=== PATIENT | female | born 1990 | race American Indian/Alaskan Native ===

== ENCOUNTER 2017-07-14 16:15 | Inpatient (IN) | payer OTHER ==
[2017-07-14] MEDS ORDERED: MAGNESIUM SULFATE 4GM/100ML 4 GM/100 ML BAG IV ONE ×2 (16:39→16:43)
[2017-07-14] MEDS ORDERED: APRESOLINE IV ONE (16:39)
[2017-07-14] MEDS ORDERED: LACTATED RINGERS 1,000 ML ONE (16:42)
[2017-07-14] MEDS ORDERED: MAGNESIUM SULFATE 40GM/1000ML 40 GM/1,000 ML BAG IV ONE (16:43)
[2017-07-14] MEDS: CELESTONE SOLUSPAN IM SCH (16:44)
[2017-07-14] MEDS ORDERED: CELESTONE SOLUSPAN IM ONE (16:44)
[2017-07-14] MEDS ORDERED: COLACE PO PRN (16:56)
[2017-07-14] MEDS ORDERED: MAGNESIUM SULFATE 40GM/1000ML 40 GM/1,000 ML BAG IV SCH (17:00)
[2017-07-14 17:10] LABS: Bacteria,Urine 1+ /HPF (Negative); Mucus,Urine FEW /HPF
[2017-07-14 17:13] LABS: Hematocrit 33.7 % (30.3-42.9); Hemoglobin 11.3 gm/dl (10.1-14.3); Mean Corpuscular HGB Conc 34 % (30-34); Mean Corpuscular Hemoglobin 31 pg (28-32); Mean Corpuscular Volume 92 fl (79-97); Platelet Count 112 K/mm3 (140-440); Red Blood Count 3.68 M/mm3 (3.65-5.03); Red Cell Distribution Width 17.2 % (13.2-15.2); White Blood Count 8.3 K/mm3 (4.5-11.0)
[2017-07-14 17:16] LABS: Bilirubin,Urine NEG (Negative); Blood,Urine SM (Negative); Ketones,Urine NEG (Negative); Leukocyte Esterase,Urine NEG (Negative); Nitrite,Urine NEG (Negative); Urobilinogen,Urine < 2.0 mg/dL (<2.0)
[2017-07-14 17:18] LABS: Protein,Urine >500 mg/dL (Negative)
[2017-07-14 17:23] LABS: Alanine Aminotransferase 96 units/L (7-56); Lactate Dehydrogenase 717 units/L (91-180); Uric Acid 6.2 mg/dL (3.5-7.6)
--- NOTE | 2017-07-14 18:30 | History and Physical Report ---
History of Present Illness Date of examination: 07/14/17 Date of admission: 07/14/17 16:15 Chief complaint: This is a 27 year-old female admitted for evaluation/management of elevated BP and abnormal LFT and decreased platelets. She experienced RUQ pain last pm that became progressively worse overnight. Her BP was 170/120 at home. She immediately went to [facility] for evaluation where she was noted to have elevated BP's and abnormal PIH labs. She was discharged home with instructions to go to [facility] triage or her OB's office immediately for evaluation. While at [facility] she was given Hydralazine and Percocet for her RUQ pain. Due concerns for unsupervised care in a patient with possible HELLP the patient requested transfer by ambulance. I actually spoke with the managing MD at [facility] and voiced my concerns for discharge and offered to accept the patient as a transfer to [facility] however the concerns were not considered and the patient was told by the social studies department chair since was already discharged and the MD felt the patient did not to be transferred she would have to pay for an ambulance to transfer her. At this point the patient voiced her frustration and decided to leave and presented to [facility] for evaluation. History of present illness: Past History : 2 Term Births: 0 Premature Births: 1 Living Children: 1 Para: 1 Mult. Births: 0 Prev : 0 Prev. attempt? 0 Aborta: 0 Elect. Ab: 0 Spont. Ab: 0 Ectopics: 0 # 1 Delivery date: 07/26/2009 Weeks Gestation: 23 Delivery type: Hours of labor: 22 Anesthesia type: IV Delivery location: [place] Infant Sex: Male weight: 1-1 Comments: HELLP induction Past Medical History: Lupus PTE dx 2009 and 2014 ITP Blood Transfusions multiple Migraines Past Surgical History: Bone marrow biopsy Family History Summary: Reviewed history and no changes required: 04/13/2017 Other family member - Has Family History of Coronary Heart Disease - Entered On : 09/17/2015 Other family member - Has No Family History of Breast Cancer - Entered On: 2015 Other family member - Has No Family History of Colon Cancer - Entered On: 2015 Other family member - Has No Family History of Diabetes - Entered On: 09/17/2015 Other family member - Has No Family History of Hypertension - Entered On: 2015 Other family member - Has No Family History of Ovarvian Cancer - Entered On: 09/17 Social History: Reviewed history from 09/17/2015 and no changes required: Patient is single Smoking History: Patient has never smoked. Risk Factors: Smoked Tobacco Use: Never smoker Smokeless Tobacco Use: Never Passive smoke exposure: no Drug use: no Alcohol use: no Dietary Counseling: yes Past Medical History Abnormal PAP: negative Uterine Anomaly: negative Social Hx: Patient is single Smoking History: Patient has never smoked. Genetic History Congenital Heart Defect: Mom: no Dad: no Flor Disease: Mom: no Dad: no Thalassemia Mom: no Dad: no Neural Tube Defect Mom: no Dad: no Down's Syndrome Mom: no Dad: no Rayray-Sachs Mom: no Dad: no Sickle Cell Disease/Trait Mom: no Dad: no Hemophilia Mom: no Dad: no Muscular Dystrophy Mom: no Dad: no Cystic Fibrosis Mom: no Dad: no Greene Chorea Mom: no Dad: no Mental Retardation Mom: no Dad: no Fragile X Mom: no Dad: no Other Genetic/Chromosomal Disorder Mom: no Dad: no Child w/other defect Mom: no Dad: no Enviromental Exposures Xray Exposure: no Medication, drug, or alcohol use since LMP: no Chemical/Other Exposure: no Exposure to Cat Liter: no Hx of Parvovirus (Fifth Disease): no Active Medications (reviewed today): LOVENOX 40 MG/0.4ML SC SOLN (ENOXAPARIN SODIUM) Subcutaneous injections once everyday PREDNISONE () PNV () Current Allergies (reviewed today): * NSAIDS (Critical) Past History - Obstetrical History Expected Date of Delivery: 10/26/17 Actual Gestation: 25 Week(s) 1 Day(s) : 2 Medications and Allergies Allergies Allergy/AdvReac Type Severity Reaction Status Date / Time No Known Allergies Allergy Unverified 07/14/17 16:45 Active Meds: Active Medications Acetaminophen (Tylenol) 650 mg PO Q6H PRN PRN Reason: Pain, Mild (1-3) Betamethasone Acet/Betameth SodPhos (Celestone Soluspan) 12 mg IM Q24HR GREGORY Stop: 07/16/17 10:01 Last Admin: 07/14/17 16:44 Dose: 12 mg Docusate Sodium (Colace) 100 mg PO Q12H PRN PRN Reason: Constipation Heparin Sodium (Porcine) (Heparin) 5,000 unit SUB-Q Q12HR GREGORY Magnesium Sulfate (Magnesium Sulfate 40gm/1000ml) 40 gm in 1,000 mls @ 50 mls/ hr IV DIRECT GREGORY PRN Reason: 2 GM/HR Last Admin: 07/14/17 17:17 Dose: 2 gm/hr, 50 mls/hr Magnesium Sulfate (Magnesium Sulfate 4gm/100ml) 4 gm in 100 mls @ 25 mls/hr IV ONCE ONE Stop: 07/14/17 20:38 Last Admin: 07/14/17 16:57 Dose: 25 mls/hr Lactated Ringer's (Lactated Ringers) 1,000 mls @ 125 mls/hr IV DIRECT GREGORY Magnesium Hydroxide (Milk Of Magnesia) 30 ml PO QHS PRN PRN Reason: Laxative Effect Multivitamins/Iron/Calcium ( Vitamin) 1 each PO QDAY GREGORY Ondansetron HCl (Zofran) 4 mg IV Q6H PRN PRN Reason: Nausea And Vomiting Zolpidem Tartrate (Ambien) 10 mg PO ONCE PRN PRN Reason: Sleep Review of Systems All systems: negative Gastrointestinal: abdominal pain Neurological: headaches - Vital Signs Vital signs: Vital Signs Pulse Pulse Ox 76 99 07/14/17 16:39 07/14/17 16:39 Temp Pulse Resp BP Pulse Ox 90 142/86 98 07/14/17 18:18 07/14/17 18:12 07/14/17 18:18 - Physical Exam Breasts: Positive: deferred Cardiovascular: Regular rate Lungs: Positive: Clear to auscultation Abdomen: Positive: normal appearance, soft, normal bowel sounds. Negative: tenderness Uterus: Positive: enlarged. Negative: tender Extremities: Positive: normal Deep Tendon Reflex Grade: Normal +2 - Obstetrical FHR: category 1 (appropriate for GA) Uterine Contraction Monitor Mode: Internal Uterine Contraction Pattern: Absent Results Result Diagrams: 07/14/17 16:35 07/14/17 16:35 Abnormal lab results 07/14/17 07/14/17 Range/Units 16:35 16:35 RDW 17.2 H (13.2-15.2) % Plt Count 112 L (140-440) K/mm3 Creatinine 0.6 L (0.7-1.2) mg/dL AST 180 H (5-40) units/L ALT 96 H (7-56) units/L Lactate Dehydrogenase 717 H (91-180) units/L All other labs normal. Ultrasound: pending Assessment and Plan - Patient Problems (1) 25 weeks gestation of Current Visit: Yes Status: Acute Plan to address problem: NICU consultation (2) Elevated blood pressure affecting in second trimester, antepartum Current Visit: Yes Status: Acute Plan to address problem: Preeclampsia/HELLP/SLE flare Celestone MagSO4 prophylaxis Strice I/O's MFM consultation AntiHTN to keep BP<160/100 (3) Nonspecific elevation of levels of transaminase and lactic acid dehydrogenase [ldh] Current Visit: Yes Status: Acute (4) Chronic ITP (idiopathic thrombocytopenic purpura) Current Visit: Yes Status: Chronic (5) History of pulmonary embolus (PE) Current Visit: Yes Status: Chronic Plan to address problem: Start Heparin sq prophylaxis (6) Migraine Current Visit: Yes Status: Chronic Qualifiers: Status migrainosus presence: without status migrainosus Intractability: not intractable (7) Lupus (systemic lupus erythematosus) Current Visit: Yes Status: Chronic Qualifiers: Systemic lupus erythematosus type: other Systemic lupus erythematosus organ involvement: glomerular disease Qualified Code(s): M32.14 - Glomerular disease in systemic lupus erythematosus
[2017-07-14] MEDS ORDERED: PERCOCET 5/325 PO ONE (19:11)
[2017-07-14] MEDS: ZOFRAN IV PRN (19:19)
[2017-07-14] MEDS: HEPARIN SUB-Q SCH (19:22)
--- NOTE | 2017-07-14 19:33 | Ultrasound Report ---
FINAL REPORT PROCEDURE: Obstetrical ultrasound. biophysical profile. TECHNIQUE: Real-time transabdominal sonography of the uterus, placenta, amniotic fluid, adnexa, and fetus was performed with image documentation. Measurements were obtained to determine age/size. M-mode Doppler was used to document heartbeat. CPT 15358 HISTORY: Twenty-five weeks, preeclampsia, labor. COMPARISON: No prior studies are available for comparison. FINDINGS: There is a single intrauterine fetus in cephalic presentation. Cardiac activity is documented at 143 beats per minute. The cervix measures 3.4 centimeters in length. There are no obvious congenital anomalies. The amniotic fluid volume appears normal. The amniotic fluid index measures 9.9 centimeters. The placenta is fundal in location. The measured parameters are as follows: Biparietal diameter 5.6 centimeters, head circumference 20.6 centimeters, abdominal circumference 18.5 centimeters, femur length 4.2 centimeters. The calculated menstrual age is 23 weeks 0 days. The estimated date of confinement is 11/10/2017. The estimated weight is 606 grams. Two points each were awarded for breathing, movements, tone and amniotic fluid volume. IMPRESSION: Viable intrauterine with a menstrual age of 23 weeks 0 days. 03/21 biophysical profile.
[2017-07-14] MEDS ORDERED: HEPARIN SUB-Q SCH (22:00)
[2017-07-14] MEDS ORDERED: MILK OF MAGNESIA PO PRN (22:00)
[2017-07-15] MEDS: LACTATED RINGERS 1,000 ML IV SCH (03:30)
[2017-07-15 07:50] LABS: Alanine Aminotransferase 71 units/L (7-56); Lactate Dehydrogenase 486 units/L (91-180)
[2017-07-15] MEDS: TYLENOL PO PRN (08:13)
[2017-07-15] MEDS: HEPARIN SUB-Q SCH ×2 (08:20→22:06)
--- NOTE | 2017-07-15 09:06 | Progress Note ---
Assessment and Plan - Patient Problems (1) 25 weeks gestation of Current Visit: Yes Status: Acute (2) Elevated blood pressure affecting in second trimester, antepartum Current Visit: Yes Status: Acute Plan to address problem: -recommendations as per MFM are as follows: 1. Close maternal and surveillance 2. Currently not on BP meds, BP meds (IV or PO) as needed to keep BP 120/80-160/ 105 3. Continue prophylactic dose heparin 4. Serial labs (daily for now) 5. Needs umbilical artery dopplers for IUGR 6. Magnesium for neuro-protection and for seizure prophylaxis while patient being evaluated; d/c after 24 hours if no plans for delivery 7. Complete steroids 8. Complete 24 hour urine collection 9. Neonatology consultation (3) Nonspecific elevation of levels of transaminase and lactic acid dehydrogenase [ldh] Current Visit: Yes Status: Acute Plan to address problem: closely monitor daily labs (4) Chronic ITP (idiopathic thrombocytopenic purpura) Current Visit: Yes Status: Chronic Plan to address problem: -daily labs -closely monitor (5) History of pulmonary embolus (PE) Current Visit: Yes Status: Chronic Plan to address problem: -cont heparin BID (6) Lupus (systemic lupus erythematosus) Current Visit: Yes Status: Chronic Qualifiers: Systemic lupus erythematosus type: other Systemic lupus erythematosus organ involvement: glomerular disease Qualified Code(s): M32.14 - Glomerular disease in systemic lupus erythematosus Plan to address problem: unclear if sx are result of flare vs severe PE -24hr urine collection in progress (7) Migraine Current Visit: Yes Status: Chronic Qualifiers: Status migrainosus presence: without status migrainosus Intractability: not intractable (8) IUGR (intrauterine growth restriction) Current Visit: Yes Status: Acute Plan to address problem: BPP/ dopplers ordered for today. Subjective - Subjective Date of service: 07/15/17 Principal diagnosis: 25 2/7 2)lupus 3)h/o PE 4)h/o severe Pre E 5)ITP 6)r/o severe preE Interval history: Pt states she has a headache this am but but it is not as bad as yesterday. BP is normal today. BPP and doppler's ordered as pt has IUGR. 24 hr urine in collection at this time. Patient reports: new complaints, movement normal, no loss of fluid, no vaginal bleeding, no contractions Objective - Vital Signs Vital Signs: Vital Signs - 12hr 07/14/17 07/14/17 07/14/17 21:11 21:13 21:17 Temperature Pulse Rate 90 92 H 82 Respiratory Rate Blood Pressure 135/83 Blood Pressure [Left] O2 Sat by Pulse 97 97 Oximetry 07/14/17 07/14/17 07/14/17 21:22 21:26 21:27 Temperature Pulse Rate 81 88 75 Respiratory Rate Blood Pressure 135/85 Blood Pressure [Left] O2 Sat by Pulse 97 98 Oximetry 07/14/17 07/14/17 07/14/17 21:32 21:38 21:41 Temperature Pulse Rate 77 83 93 H Respiratory Rate Blood Pressure 121/67 Blood Pressure [Left] O2 Sat by Pulse 98 98 Oximetry 07/14/17 07/14/17 07/14/17 21:42 21:48 21:53 Temperature Pulse Rate 85 84 94 H Respiratory Rate Blood Pressure Blood Pressure [Left] O2 Sat by Pulse 97 97 98 Oximetry 07/14/17 07/14/17 07/14/17 21:56 21:57 22:00 Temperature 97.0 F L Pulse Rate 96 H 93 H 88 Respiratory 14 Rate Blood Pressure 141/86 Blood Pressure 143/91 [Left] O2 Sat by Pulse 98 97 Oximetry 07/14/17 07/14/17 07/14/17 22:02 22:05 22:07 Temperature Pulse Rate 95 H 87 94 H Respiratory Rate Blood Pressure 143/91 Blood Pressure [Left] O2 Sat by Pulse 97 98 Oximetry 07/14/17 07/14/17 07/14/17 22:11 22:12 22:18 Temperature Pulse Rate 90 91 H 99 H Respiratory Rate Blood Pressure 138/89 Blood Pressure [Left] O2 Sat by Pulse 98 98 Oximetry 07/14/17 07/14/17 07/14/17 22:22 22:26 22:28 Temperature Pulse Rate 86 85 94 H Respiratory Rate Blood Pressure 141/88 Blood Pressure [Left] O2 Sat by Pulse 98 98 Oximetry 07/14/17 07/14/17 07/14/17 22:33 22:37 22:41 Temperature Pulse Rate 91 H 91 H 93 H Respiratory Rate Blood Pressure 130/84 Blood Pressure [Left] O2 Sat by Pulse 97 97 Oximetry 07/14/17 07/14/17 07/14/17 22:42 22:48 22:53 Temperature Pulse Rate 90 87 85 Respiratory Rate Blood Pressure Blood Pressure [Left] O2 Sat by Pulse 98 97 97 Oximetry 07/14/17 07/14/17 07/14/17 22:56 22:58 23:03 Temperature Pulse Rate 83 89 90 Respiratory Rate Blood Pressure 126/79 Blood Pressure [Left] O2 Sat by Pulse 98 97 Oximetry 07/14/17 07/14/17 07/14/17 23:08 23:11 23:13 Temperature Pulse Rate 87 83 83 Respiratory Rate Blood Pressure 127/74 Blood Pressure [Left] O2 Sat by Pulse 98 97 Oximetry 07/14/17 07/14/17 07/14/17 23:18 23:23 23:26 Temperature Pulse Rate 77 87 93 H Respiratory Rate Blood Pressure 126/77 Blood Pressure [Left] O2 Sat by Pulse 96 96 Oximetry 07/14/17 07/14/17 07/14/17 23:28 23:33 23:38 Temperature Pulse Rate 86 84 87 Respiratory Rate Blood Pressure Blood Pressure [Left] O2 Sat by Pulse 97 97 97 Oximetry 07/14/17 07/14/17 07/14/17 23:41 23:43 23:48 Temperature Pulse Rate 82 81 80 Respiratory Rate Blood Pressure 128/79 Blood Pressure [Left] O2 Sat by Pulse 96 97 Oximetry 07/14/17 07/14/17 07/14/17 23:53 23:56 23:58 Temperature Pulse Rate 82 83 84 Respiratory Rate Blood Pressure 125/72 Blood Pressure [Left] O2 Sat by Pulse 96 96 Oximetry 07/15/17 07/15/17 07/15/17 00:03 00:08 00:11 Temperature Pulse Rate 82 85 86 Respiratory Rate Blood Pressure 127/72 Blood Pressure [Left] O2 Sat by Pulse 96 97 Oximetry 07/15/17 07/15/17 07/15/17 00:13 00:17 00:23 Temperature Pulse Rate 83 82 83 Respiratory Rate Blood Pressure Blood Pressure [Left] O2 Sat by Pulse 96 96 96 Oximetry 07/15/17 07/15/17 07/15/17 00:26 00:28 00:33 Temperature Pulse Rate 93 H 81 78 Respiratory Rate Blood Pressure 100/67 Blood Pressure [Left] O2 Sat by Pulse 95 95 Oximetry 07/15/17 07/15/17 07/15/17 00:38 00:41 00:43 Temperature Pulse Rate 79 81 80 Respiratory Rate Blood Pressure 117/70 Blood Pressure [Left] O2 Sat by Pulse 96 94 95 Oximetry 07/15/17 07/15/17 07/15/17 00:48 00:53 00:56 Temperature Pulse Rate 81 78 82 Respiratory Rate Blood Pressure 125/75 Blood Pressure [Left] O2 Sat by Pulse 96 96 94 Oximetry 07/15/17 07/15/17 07/15/17 00:58 01:03 01:08 Temperature Pulse Rate 80 79 81 Respiratory Rate Blood Pressure Blood Pressure [Left] O2 Sat by Pulse 96 96 95 Oximetry 07/15/17 07/15/17 07/15/17 01:12 01:13 01:18 Temperature Pulse Rate 86 81 81 Respiratory Rate Blood Pressure 127/72 Blood Pressure [Left] O2 Sat by Pulse 94 96 96 Oximetry 07/15/17 07/15/17 07/15/17 01:23 01:26 01:28 Temperature Pulse Rate 79 80 79 Respiratory Rate Blood Pressure 110/70 Blood Pressure [Left] O2 Sat by Pulse 96 96 Oximetry 07/15/17 07/15/17 07/15/17 01:33 01:38 01:41 Temperature Pulse Rate 81 88 90 Respiratory Rate Blood Pressure 116/69 Blood Pressure [Left] O2 Sat by Pulse 96 95 Oximetry 07/15/17 07/15/17 07/15/17 01:43 01:48 01:53 Temperature Pulse Rate 85 79 76 Respiratory Rate Blood Pressure Blood Pressure [Left] O2 Sat by Pulse 95 95 96 Oximetry 07/15/17 07/15/17 07/15/17 01:56 01:58 02:00 Temperature 96.7 F L Pulse Rate 76 78 76 Respiratory 12 Rate Blood Pressure 115/68 Blood Pressure 115/68 [Left] O2 Sat by Pulse 95 95 Oximetry 07/15/17 07/15/17 07/15/17 02:03 02:08 02:11 Temperature Pulse Rate 77 77 78 Respiratory Rate Blood Pressure 113/68 Blood Pressure [Left] O2 Sat by Pulse 96 95 Oximetry 07/15/17 07/15/17 07/15/17 02:13 02:18 02:23 Temperature Pulse Rate 78 78 79 Respiratory Rate Blood Pressure Blood Pressure [Left] O2 Sat by Pulse 96 96 97 Oximetry 07/15/17 07/15/17 07/15/17 02:26 02:28 02:33 Temperature Pulse Rate 75 79 77 Respiratory Rate Blood Pressure 121/72 Blood Pressure [Left] O2 Sat by Pulse 96 95 Oximetry 07/15/17 07/15/17 07/15/17 02:38 02:41 02:43 Temperature Pulse Rate 77 87 77 Respiratory Rate Blood Pressure 126/74 Blood Pressure [Left] O2 Sat by Pulse 96 96 Oximetry 07/15/17 07/15/17 07/15/17 02:48 02:53 02:56 Temperature Pulse Rate 77 78 77 Respiratory Rate Blood Pressure 134/80 Blood Pressure [Left] O2 Sat by Pulse 96 96 Oximetry 07/15/17 07/15/17 07/15/17 02:58 03:03 03:08 Temperature Pulse Rate 77 69 71 Respiratory Rate Blood Pressure Blood Pressure [Left] O2 Sat by Pulse 96 100 100 Oximetry 07/15/17 07/15/17 07/15/17 03:11 03:13 03:18 Temperature Pulse Rate 68 69 66 Respiratory Rate Blood Pressure 140/93 Blood Pressure [Left] O2 Sat by Pulse 100 100 Oximetry 07/15/17 07/15/17 07/15/17 03:23 03:26 03:28 Temperature Pulse Rate 66 70 70 Respiratory Rate Blood Pressure 138/93 Blood Pressure [Left] O2 Sat by Pulse 100 100 Oximetry 07/15/17 07/15/17 07/15/17 03:32 03:33 03:38 Temperature Pulse Rate 65 69 65 Respiratory Rate Blood Pressure 133/93 Blood Pressure [Left] O2 Sat by Pulse 100 100 Oximetry 07/15/17 07/15/17 07/15/17 03:41 03:43 03:48 Temperature Pulse Rate 65 63 65 Respiratory Rate Blood Pressure 136/94 Blood Pressure [Left] O2 Sat by Pulse 100 100 Oximetry 07/15/17 07/15/17 07/15/17 03:53 03:56 03:58 Temperature Pulse Rate 67 65 68 Respiratory Rate Blood Pressure 133/89 Blood Pressure [Left] O2 Sat by Pulse 100 100 Oximetry 07/15/17 07/15/17 07/15/17 04:03 04:08 04:11 Temperature Pulse Rate 76 71 78 Respiratory Rate Blood Pressure 140/95 Blood Pressure [Left] O2 Sat by Pulse 100 100 Oximetry 07/15/17 07/15/17 07/15/17 04:13 04:18 04:23 Temperature Pulse Rate 74 70 77 Respiratory Rate Blood Pressure Blood Pressure [Left] O2 Sat by Pulse 100 100 100 Oximetry 07/15/17 07/15/17 07/15/17 04:28 04:33 04:38 Temperature Pulse Rate 79 75 69 Respiratory Rate Blood Pressure Blood Pressure [Left] O2 Sat by Pulse 91 100 100 Oximetry 07/15/17 07/15/17 07/15/17 04:41 04:43 04:48 Temperature Pulse Rate 74 73 73 Respiratory Rate Blood Pressure 136/92 Blood Pressure [Left] O2 Sat by Pulse 100 100 Oximetry 07/15/17 07/15/17 07/15/17 04:53 04:56 04:58 Temperature Pulse Rate 75 71 70 Respiratory Rate Blood Pressure 137/91 Blood Pressure [Left] O2 Sat by Pulse 100 100 Oximetry 07/15/17 07/15/17 07/15/17 05:03 05:08 05:10 Temperature Pulse Rate 66 75 Respiratory Rate Blood Pressure Blood Pressure [Left] O2 Sat by Pulse 100 100 73 L Oximetry 07/15/17 07/15/17 07/15/17 05:11 05:19 05:26 Temperature Pulse Rate 81 73 70 Respiratory Rate Blood Pressure 127/83 133/86 Blood Pressure [Left] O2 Sat by Pulse 40 L Oximetry 07/15/17 07/15/17 07/15/17 05:28 05:35 05:40 Temperature Pulse Rate 70 76 Respiratory Rate Blood Pressure Blood Pressure [Left] O2 Sat by Pulse 88 0 L 100 Oximetry 07/15/17 07/15/17 07/15/17 05:41 05:45 05:50 Temperature Pulse Rate 73 73 68 Respiratory Rate Blood Pressure 131/85 Blood Pressure [Left] O2 Sat by Pulse 100 100 Oximetry 07/15/17 07/15/17 07/15/17 05:55 05:56 06:00 Temperature 97.5 F L Pulse Rate 79 69 78 Respiratory 16 Rate Blood Pressure 129/80 Blood Pressure 129/80 [Left] O2 Sat by Pulse 100 100 Oximetry 07/15/17 07/15/17 07/15/17 06:05 06:10 06:12 Temperature Pulse Rate 79 70 75 Respiratory Rate Blood Pressure 140/87 Blood Pressure [Left] O2 Sat by Pulse 100 100 Oximetry 07/15/17 07/15/17 07/15/17 06:15 06:20 06:31 Temperature Pulse Rate 74 72 76 Respiratory Rate Blood Pressure Blood Pressure [Left] O2 Sat by Pulse 100 100 98 Oximetry 07/15/17 07/15/17 07/15/17 06:36 06:41 06:46 Temperature Pulse Rate 82 74 79 Respiratory Rate Blood Pressure 130/81 Blood Pressure [Left] O2 Sat by Pulse 99 100 100 Oximetry 07/15/17 07/15/17 07/15/17 06:51 06:56 06:57 Temperature Pulse Rate 88 83 77 Respiratory Rate Blood Pressure 131/87 Blood Pressure [Left] O2 Sat by Pulse 100 100 Oximetry 07/15/17 07/15/17 07/15/17 07:01 07:06 07:11 Temperature Pulse Rate 84 77 74 Respiratory Rate Blood Pressure Blood Pressure [Left] O2 Sat by Pulse 100 100 100 Oximetry 07/15/17 07/15/17 07/15/17 07:14 07:16 07:21 Temperature Pulse Rate 84 84 92 H Respiratory Rate Blood Pressure 130/82 Blood Pressure [Left] O2 Sat by Pulse 98 98 Oximetry 07/15/17 07/15/17 07/15/17 07:26 07:31 07:36 Temperature Pulse Rate 97 H 87 85 Respiratory Rate Blood Pressure 128/85 Blood Pressure [Left] O2 Sat by Pulse 98 98 98 Oximetry 07/15/17 07/15/17 07/15/17 07:41 07:46 07:51 Temperature Pulse Rate 86 89 84 Respiratory Rate Blood Pressure 117/63 Blood Pressure [Left] O2 Sat by Pulse 98 98 97 Oximetry 07/15/17 07/15/17 07/15/17 07:56 08:01 08:06 Temperature Pulse Rate 85 78 81 Respiratory Rate Blood Pressure 121/66 Blood Pressure [Left] O2 Sat by Pulse 97 97 97 Oximetry 07/15/17 07/15/17 07/15/17 08:11 08:16 08:21 Temperature Pulse Rate 81 88 89 Respiratory Rate Blood Pressure 114/63 Blood Pressure [Left] O2 Sat by Pulse 97 98 99 Oximetry 07/15/17 07/15/17 07/15/17 08:26 08:27 08:31 Temperature Pulse Rate 91 H 86 90 Respiratory Rate Blood Pressure 120/72 Blood Pressure [Left] O2 Sat by Pulse 98 99 Oximetry 07/15/17 07/15/17 07/15/17 08:36 08:41 08:46 Temperature Pulse Rate 91 H 78 86 Respiratory Rate Blood Pressure Blood Pressure [Left] O2 Sat by Pulse 98 98 97 Oximetry 07/15/17 07/15/17 07/15/17 08:51 08:56 08:57 Temperature Pulse Rate 77 78 76 Respiratory Rate Blood Pressure 112/64 Blood Pressure [Left] O2 Sat by Pulse 97 97 Oximetry 07/15/17 07/15/17 09:01 09:06 Temperature Pulse Rate 82 78 Respiratory Rate Blood Pressure Blood Pressure [Left] O2 Sat by Pulse 99 96 Oximetry - Exam Cardiovascular: Normal S1, Normal S2 Lungs: Clear to auscultation, Normal air movement Abdomen: Present: normal appearance, soft. Absent: distention, tenderness, guarding FHR: other (low base line) - Labs Labs: Abnormal Labs 07/14/17 07/14/17 07/15/17 16:35 16:35 07:01 RDW 17.2 H Plt Count 112 L Creatinine 0.6 L Magnesium 8.20 H AST 180 H ALT 96 H Lactate Dehydrogenase 717 H 07/15/17 07:16 RDW Plt Count Creatinine Magnesium AST 88 H ALT 71 H Lactate Dehydrogenase 486 H Laboratory Results - last 24 hr 07/14/17 07/14/17 07/14/17 16:35 16:35 16:35 WBC 8.3 RBC 3.68 Hgb 11.3 Hct 33.7 MCV 92 MCH 31 MCHC 34 RDW 17.2 H Plt Count 112 L Creatinine 0.6 L Estimated GFR > 60 Uric Acid 6.2 Magnesium AST 180 H ALT 96 H Lactate Dehydrogenase 717 H Urine Color Yellow Urine Turbidity Clear Urine pH 6.0 Ur Specific [place] 1.019 Urine Protein >500 Urine Glucose (UA) Neg Urine Ketones Neg Urine Blood Sm Urine Nitrite Neg Ur Reducing Substances Not Reportable Urine Bilirubin Neg Urine Ictotest Not Reportable Urine Urobilinogen < 2.0 Ur Leukocyte Esterase Neg Urine WBC (Auto) 6.0 Urine RBC (Auto) 2.0 U Epithel Cells (Auto) 4.0 Urine Bacteria (Auto) 1+ Hyaline Casts 8 Urine Mucus Few 07/15/17 07/15/17 07/15/17 07:01 07:16 07:16 WBC RBC Hgb Hct MCV MCH MCHC RDW Plt Count Creatinine 0.7 Estimated GFR > 60 Uric Acid 6.8 Magnesium 8.20 H AST 88 H ALT 71 H Lactate Dehydrogenase 486 H Urine Color Urine Turbidity Urine pH Ur Specific [place] Urine Protein Urine Glucose (UA) Urine Ketones Urine Blood Urine Nitrite Ur Reducing Substances Urine Bilirubin Urine Ictotest Urine Urobilinogen Ur Leukocyte Esterase Urine WBC (Auto) Urine RBC (Auto) U Epithel Cells (Auto) Urine Bacteria (Auto) Hyaline Casts Urine Mucus
--- NOTE | 2017-07-15 09:11 | Consultation ---
History of Present Illness Consult date: 07/15/17 Past History - Obstetrical History : 2 Medications and Allergies Allergies Allergy/AdvReac Type Severity Reaction Status Date / Time No Known Allergies Allergy Unverified 07/14/17 16:45 Active Meds: Active Medications Acetaminophen (Tylenol) 650 mg PO Q6H PRN PRN Reason: Pain, Mild (1-3) Last Admin: 07/15/17 08:13 Dose: 650 mg Betamethasone Acet/Betameth SodPhos (Celestone Soluspan) 12 mg IM Q24HR GREGORY Stop: 07/16/17 10:01 Last Admin: 07/14/17 16:44 Dose: 12 mg Docusate Sodium (Colace) 100 mg PO Q12H PRN PRN Reason: Constipation Heparin Sodium (Porcine) (Heparin) 5,000 unit SUB-Q Q12HR GREGORY Last Admin: 07/15/17 08:20 Dose: 5,000 unit Magnesium Sulfate (Magnesium Sulfate 40gm/1000ml) 40 gm in 1,000 mls @ 50 mls/ hr IV DIRECT GREGORY PRN Reason: 2 GM/HR Last Admin: 07/14/17 17:17 Dose: 2 gm/hr, 50 mls/hr Lactated Ringer's (Lactated Ringers) 1,000 mls @ 125 mls/hr IV DIRECT GREGORY Last Admin: 07/15/17 03:30 Dose: 75 mls/hr Magnesium Hydroxide (Milk Of Magnesia) 30 ml PO QHS PRN PRN Reason: Laxative Effect Multivitamins/Iron/Calcium ( Vitamin) 1 each PO QDAY [facility] Ondansetron HCl (Zofran) 4 mg IV Q6H PRN PRN Reason: Nausea And Vomiting Last Admin: 07/14/17 19:19 Dose: 4 mg Zolpidem Tartrate (Ambien) 10 mg PO ONCE PRN PRN Reason: Sleep - Vital Signs Vital signs: Vital Signs Pulse Pulse Ox 76 99 07/14/17 16:39 07/14/17 16:39 Temp Pulse Resp BP Pulse Ox 97.5 F L 77 16 112/64 97 07/15/17 05:55 07/15/17 09:11 07/15/17 05:55 07/15/17 08:57 07/15/17 09:11 Results Result Diagrams: 07/14/17 16:35 07/15/17 07:16 Abnormal lab results 07/14/17 07/14/17 07/15/17 Range/Units 16:35 16:35 07:01 RDW 17.2 H (13.2-15.2) % Plt Count 112 L (140-440) K/mm3 Creatinine 0.6 L (0.7-1.2) mg/dL Magnesium 8.20 H (1.7-2.3) mg/dL AST 180 H (5-40) units/L ALT 96 H (7-56) units/L Lactate Dehydrogenase 717 H (91-180) units/L 07/15/17 Range/Units 07:16 RDW (13.2-15.2) % Plt Count (140-440) K/mm3 Creatinine (0.7-1.2) mg/dL Magnesium (1.7-2.3) mg/dL AST 88 H (5-40) units/L ALT 71 H (7-56) units/L Lactate Dehydrogenase 486 H (91-180) units/L All other labs normal. Assessment and Plan Full consult in paper chart Assessment 1. 25+2 weeks 2. Suspected severe pre-eclampsia (elevated BP, proteinuria, low platelets), but diagnosis very difficult due to hx of SLE and ITP, with baseline proteinuria , baseline elevated LFTs, difficult to differentiate from lupus flare 3. SLE 4. ITP 5. IUGR (EFW at 2nd percentile) 6. Hx of PE Recommendations 1. Close maternal and surveillance 2. Currently not on BP meds, BP meds (IV or PO) as needed to keep BP 120/80-160/ 105 3. Continue prophylactic dose heparin 4. Serial labs (daily for now) 5. Needs umbilical artery dopplers for IUGR 6. Magnesium for neuro-protection and for seizure prophylaxis while patient being evaluated; d/c after 24 hours if no plans for delivery 7. Complete steroids 8. Complete 24 hour urine collection 9. Neonatology consultation
--- NOTE | 2017-07-15 10:12 | Event Note ---
Date: 07/15/17 Pt magnesium noted to be 8.2. Will repeat at this time and hold the magnesium for now until the level is repeated.
[2017-07-15 11:14] LABS: Hematocrit 33.9 % (30.3-42.9); Hemoglobin 11.5 gm/dl (10.1-14.3); Mean Corpuscular HGB Conc 34 % (30-34); Mean Corpuscular Hemoglobin 32 pg (28-32); Mean Corpuscular Volume 93 fl (79-97); Platelet Count 128 K/mm3 (140-440); Red Blood Count 3.66 M/mm3 (3.65-5.03); Red Cell Distribution Width 17.5 % (13.2-15.2)
--- NOTE | 2017-07-15 12:01 | Ultrasound Report ---
ULTRASOUND BIOPHYSICAL PROFILE: History: Maternal hypertension, lupus Technique: Transabdominal ultrasound with Doppler interrogation. 2 - breathing movements 2 - movements 2 - posture and tone 2 - Qualitative amniotic fluid volume 8 - TOTAL SCORE OF POSSIBLE 8 Heart Rate (bpm) 125
--- NOTE | 2017-07-15 12:02 | Ultrasound Report ---
ULTRASOUND OB LIMITED History: Maternal hypertension, lupus Technique: Transabdominal ultrasound with Doppler interrogation. Gestation: Single Position: Cephalic Amniotic Fluid: Normal KASIE = 14.6 cm Placenta: Posterior Placental Grade: 0 Heart Rate: 121 BPM Cervical length: 3.0 cm (Normal > 3 cm)
--- NOTE | 2017-07-15 12:04 | Ultrasound Report ---
ULTRASOUND OB VELOCIMETRY UMBILICAL ARTERY History: Maternal hypertension, Lupus. Findings: Transabdominal ultrasound with spectral Doppler interrogation was performed on 6 segments of the umbilical cord. heart rate measures 123 beats per minute. The spectral waveforms are intermittently abnormal. 3 of the segments of the umbilical cord demonstrate loss of end-diastolic flow on the spectral waveforms. S./D. ratio average measures 4.14. Resistive index average measures 0.75. The pulsatility index average measures 2.0.
--- NOTE | 2017-07-15 17:02 | Event Note ---
Date: 07/15/17 last magnesium was 7.8 so will continue to hold at this time.BPs are stable.
--- NOTE | 2017-07-15 17:45 | Consultation ---
History of Present Illness Consult date: 07/15/17 Reason for consult: prematurity (25 weeks gestation at risk for delivery ) Documentation - information: Height 5 ft 3 in Medications and Allergies Allergies Allergy/AdvReac Type Severity Reaction Status Date / Time No Known Allergies Allergy Unverified 07/14/17 16:45 Active Meds: Active Medications Acetaminophen (Tylenol) 650 mg PO Q6H PRN PRN Reason: Pain, Mild (1-3) Last Admin: 07/15/17 08:13 Dose: 650 mg Betamethasone Acet/Betameth SodPhos (Celestone Soluspan) 12 mg IM Q24HR GREGORY Stop: 07/16/17 10:01 Last Admin: 07/14/17 16:44 Dose: 12 mg Docusate Sodium (Colace) 100 mg PO Q12H PRN PRN Reason: Constipation Heparin Sodium (Porcine) (Heparin) 5,000 unit SUB-Q Q12HR GREGORY Last Admin: 07/15/17 08:20 Dose: 5,000 unit Magnesium Sulfate (Magnesium Sulfate 40gm/1000ml) 40 gm in 1,000 mls @ 50 mls/ hr IV DIRECT GREGORY PRN Reason: 2 GM/HR Last Infusion: 07/15/17 10:10 Dose: 0 gm/hr, 0 mls/hr Lactated Ringer's (Lactated Ringers) 1,000 mls @ 125 mls/hr IV DIRECT GREGORY Last Admin: 07/15/17 03:30 Dose: 75 mls/hr Magnesium Hydroxide (Milk Of Magnesia) 30 ml PO QHS PRN PRN Reason: Laxative Effect Multivitamins/Iron/Calcium ( Vitamin) 1 each PO QDAY [facility] Ondansetron HCl (Zofran) 4 mg IV Q6H PRN PRN Reason: Nausea And Vomiting Last Admin: 07/14/17 19:19 Dose: 4 mg Zolpidem Tartrate (Ambien) 10 mg PO ONCE PRN PRN Reason: Sleep Exam Vital Signs Pulse Pulse Ox 76 99 07/14/17 16:39 07/14/17 16:39 Temp Pulse Resp BP Pulse Ox 97.5 F L 98 H 16 139/89 98 07/15/17 05:55 07/15/17 17:36 07/15/17 05:55 07/15/17 17:27 07/15/17 17:36 Results - Laboratory Findings 07/15/17 10:59 07/15/17 07:16 Abnormal lab results 07/15/17 07/15/17 07/15/17 Range/Units 07:01 07:16 10:59 RDW (13.2-15.2) % Plt Count (140-440) K/mm3 Magnesium 8.20 H 7.80 H (1.7-2.3) mg/dL AST 88 H (5-40) units/L ALT 71 H (7-56) units/L Lactate Dehydrogenase 486 H (91-180) units/L 07/15/17 Range/Units 10:59 RDW 17.5 H (13.2-15.2) % Plt Count 128 L (140-440) K/mm3 Magnesium (1.7-2.3) mg/dL AST (5-40) units/L ALT (7-56) units/L Lactate Dehydrogenase (91-180) units/L Assessment and Plan I met with both parents and spoke with the OB team requesting the consult. Mother has had a prior delivery at 23 weeks in [place] and is familiar with the NICU environment. At 25 weeks gestation and 600g, survival is approximately 75% and survival without significant co-morbidities is approx 50 - 55%. Parents understood the need for NICU admission, possible need for intubation and mechanical ventilation, need for UVC, UAC and PICC lines, as well as the risks for IVH, ROP & BPD. I encouraged parents to ask questions which I answered to the best of my ability. NICU will attend delivery whenever primary team decides to proceed with delivery Agree with steroids for lung maturity Please call NICU with questions
[2017-07-15] MEDS: CELESTONE SOLUSPAN IM SCH (18:02)
[2017-07-16] MEDS: LACTATED RINGERS 1,000 ML IV SCH ×2 (01:47→11:07)
[2017-07-16 06:42] LABS: Alanine Aminotransferase 48 units/L (7-56); Hematocrit 30.5 % (30.3-42.9); Hemoglobin 10.3 gm/dl (10.1-14.3); Lactate Dehydrogenase 481 units/L (91-180); Mean Corpuscular HGB Conc 34 % (30-34); Mean Corpuscular Hemoglobin 31 pg (28-32); Mean Corpuscular Volume 92 fl (79-97); Platelet Count 151 K/mm3 (140-440); White Blood Count 9.1 K/mm3 (4.5-11.0)
[2017-07-16] MEDS ORDERED: APRESOLINE IV NR (08:04)
[2017-07-16] MEDS: TYLENOL PO PRN ×2 (08:39→16:16)
--- NOTE | 2017-07-16 09:17 | Progress Note ---
Assessment and Plan - Patient Problems (1) 25 weeks gestation of Current Visit: Yes Status: Acute (2) Elevated blood pressure affecting in second trimester, antepartum Current Visit: Yes Status: Acute Plan to address problem: -recommendations as per MFM are as follows: 1. Close maternal and surveillance 2. Currently not on BP meds, BP meds (IV or PO) as needed to keep BP 120/80-160/ 105-hydralazine x1 given this am 3. Continue prophylactic dose heparin 4. Serial labs (daily for now) 5. Needs umbilical artery dopplers for IUGR 6. Magnesium for neuro-protection and for seizure prophylaxis while patient being evaluated; d/c after 24 hours if no plans for delivery-d/c at this time 7. steroids completed 8. 24hr urine shows >1000mg/24hrs 9. Neonatology consultation-done (3) Nonspecific elevation of levels of transaminase and lactic acid dehydrogenase [ldh] Current Visit: Yes Status: Acute (4) Chronic ITP (idiopathic thrombocytopenic purpura) Current Visit: Yes Status: Chronic (5) History of pulmonary embolus (PE) Current Visit: Yes Status: Chronic (6) Lupus (systemic lupus erythematosus) Current Visit: Yes Status: Chronic Qualifiers: Systemic lupus erythematosus type: other Systemic lupus erythematosus organ involvement: glomerular disease Qualified Code(s): M32.14 - Glomerular disease in systemic lupus erythematosus (7) Migraine Current Visit: Yes Status: Chronic Qualifiers: Status migrainosus presence: without status migrainosus Intractability: not intractable (8) IUGR (intrauterine growth restriction) Current Visit: Yes Status: Acute Subjective - Subjective Date of service: 07/16/17 Principal diagnosis: 25 3/7 2)lupus 3)h/o PE 4)h/o severe Pre E 5)ITP 6)r/o severe preE Interval history: Pt has been stable with normal bps since d/c of magnesium due to elevated levels until this am at change of shift. She needed to have one dose of hydralazine 10mg with decrease in BP. Pt has not sx and states she is feeling better. No pain , no headaches at this time. Pt LFTs are in normal ranges this am as well as normal platelets. BPP was 8/8 and dopplers showed AEDF that was intermittent. Pt s/p second dose of steroids @ 1800pm. Patient reports: new complaints, movement normal, no loss of fluid, no vaginal bleeding, no contractions Objective - Vital Signs Vital Signs: Vital Signs - 12hr 07/16/17 07/16/17 07/16/17 00:06 00:09 05:40 Temperature 98.7 F 97.8 F Pulse Rate 77 77 82 Respiratory 12 14 Rate Blood Pressure 122/77 Blood Pressure 127/77 134/93 [Left] 07/16/17 07/16/17 07/16/17 05:43 07:50 07:52 Temperature Pulse Rate 82 70 70 Respiratory Rate Blood Pressure 134/93 172/113 168/107 Blood Pressure [Left] 07/16/17 07/16/17 07/16/17 07:53 07:59 08:15 Temperature 97.6 F Pulse Rate 71 71 Respiratory 18 Rate Blood Pressure 165/111 165/111 Blood Pressure [Left] 07/16/17 07/16/17 07/16/17 08:26 08:42 08:57 Temperature Pulse Rate 74 80 92 H Respiratory Rate Blood Pressure 160/105 138/94 144/95 Blood Pressure [Left] - Exam Cardiovascular: Normal S1, Normal S2 Lungs: Clear to auscultation, Normal air movement Abdomen: Present: normal appearance, soft. Absent: distention, tenderness, guarding FHR: category 1 Uterine Contraction Pattern: Absent - Labs Labs: Abnormal Labs 07/14/17 07/14/17 07/15/17 16:35 16:35 07:01 RBC RDW 17.2 H Plt Count 112 L Creatinine 0.6 L Magnesium 8.20 H AST 180 H ALT 96 H Lactate Dehydrogenase 717 H Urine Creatinine Ur Total Protein 24 Hr Urine Total Protein 07/15/17 07/15/17 07/15/17 07:16 10:59 10:59 RBC RDW 17.5 H Plt Count 128 L Creatinine Magnesium 7.80 H AST 88 H ALT 71 H Lactate Dehydrogenase 486 H Urine Creatinine Ur Total Protein 24 Hr Urine Total Protein 07/15/17 07/15/17 07/15/17 18:00 18:00 18:56 RBC RDW Plt Count Creatinine Magnesium 4.80 H AST ALT Lactate Dehydrogenase Urine Creatinine 100.2 H Ur Total Protein 24 Hr 1551.00 H Urine Total Protein 141 H 07/16/17 07/16/17 06:05 06:05 RBC 3.30 L RDW 17.0 H Plt Count Creatinine Magnesium AST 50 H ALT Lactate Dehydrogenase 481 H Urine Creatinine Ur Total Protein 24 Hr Urine Total Protein Laboratory Results - last 24 hr 07/15/17 07/15/17 07/15/17 10:59 10:59 18:00 WBC 8.0 RBC 3.66 Hgb 11.5 Hct 33.9 MCV 93 MCH 32 MCHC 34 RDW 17.5 H Plt Count 128 L Creatinine Estimated GFR Magnesium 7.80 H AST ALT Lactate Dehydrogenase Urine Total Volume 1100 Urine Creatinine Height (in) Weight (lb) Creatinine Clearance Ur Total Protein 24 Hr 1551.00 H Urine Total Protein 141 H 07/15/17 07/15/17 07/16/17 18:00 18:56 06:05 WBC 9.1 RBC 3.30 L Hgb 10.3 Hct 30.5 MCV 92 MCH 31 MCHC 34 RDW 17.0 H Plt Count 151 Creatinine Estimated GFR Magnesium 4.80 H AST ALT Lactate Dehydrogenase Urine Total Volume 1100 Urine Creatinine 100.2 H Height (in) 63.0 Weight (lb) 160.0 Creatinine Clearance 107 Ur Total Protein 24 Hr Urine Total Protein 07/16/17 06:05 WBC RBC Hgb Hct MCV MCH MCHC RDW Plt Count Creatinine 0.8 Estimated GFR > 60 Magnesium AST 50 H ALT 48 Lactate Dehydrogenase 481 H Urine Total Volume Urine Creatinine Height (in) Weight (lb) Creatinine Clearance Ur Total Protein 24 Hr Urine Total Protein
[2017-07-16] MEDS: PRENATAL VITAMIN PO SCH (10:44)
[2017-07-16] MEDS: HEPARIN SUB-Q SCH ×2 (10:45→22:44)
[2017-07-17] MEDS ORDERED: APRESOLINE ONE (00:34)
[2017-07-17] MEDS: AMBIEN PO PRN ×2 (00:52→23:20)
[2017-07-17] MEDS ORDERED: APRESOLINE IV PRN (00:55)
[2017-07-17] MEDS ORDERED: APRESOLINE IV ONE (00:55)
--- NOTE | 2017-07-17 06:39 | Progress Note ---
Assessment and Plan - Patient Problems (1) History of pulmonary embolus (PE) Onset Date: ~07/17/17 Current Visit: Yes Status: Chronic Plan to address problem: Heparin 5,000 QD (2) 25 weeks gestation of Onset Date: ~07/17/17 Current Visit: Yes Status: Acute Plan to address problem: BMZ completed(07-15-17- @ 1800) NICU consult done Pt denies any ctx, LOF, nor bleeding Reports +FM (3) Elevated blood pressure affecting in second trimester, antepartum Onset Date: ~07/17/17 Current Visit: Yes Status: Acute Plan to address problem: Pt did receive a single dose of Hydralizine last evening @ 0100 BP are now 130/ 70-90 No po meds @ this time Pt denies MACKENZIE, blurred vision, chest pain. Pt does c/o feeling week. (4) Chronic ITP (idiopathic thrombocytopenic purpura) Onset Date: ~07/17/17 Current Visit: Yes Status: Chronic Plan to address problem: CBC and CMP drawn this AM as ordered Will consult with . Pt is also being seen by [facility]. Subjective - Subjective Date of service: 07/17/17 (pt voices feeling week but feeling better this AM) Principal diagnosis: 25 3/7 2)lupus 3)h/o PE 4)h/o severe Pre E 5)ITP 6)r/o severe preE Patient reports: new complaints, movement normal, no loss of fluid, no vaginal bleeding, no contractions Objective - Vital Signs Vital Signs: Vital Signs - 12hr 07/16/17 07/16/17 07/16/17 19:00 19:20 20:03 Temperature 98.6 F Pulse Rate 70 70 74 Respiratory 16 Rate Blood Pressure 163/99 153/92 Blood Pressure 163/99 [Left] O2 Sat by Pulse 98 Oximetry 07/16/17 07/16/17 07/16/17 20:08 20:13 20:18 Temperature Pulse Rate 71 90 74 Respiratory Rate Blood Pressure Blood Pressure [Left] O2 Sat by Pulse 99 99 99 Oximetry 07/16/17 07/16/17 07/16/17 20:23 20:28 20:33 Temperature Pulse Rate 66 70 69 Respiratory Rate Blood Pressure Blood Pressure [Left] O2 Sat by Pulse 99 99 100 Oximetry 07/16/17 07/16/1717 20:38 20:43 20:48 Temperature Pulse Rate 81 77 73 Respiratory Rate Blood Pressure Blood Pressure [Left] O2 Sat by Pulse 100 100 99 Oximetry 07/16/17 07/16/17 07/16/17 20:53 20:58 21:03 Temperature Pulse Rate 75 75 76 Respiratory Rate Blood Pressure Blood Pressure [Left] O2 Sat by Pulse 100 100 100 Oximetry 07/16/17 07/16/17 07/16/17 21:08 21:13 21:18 Temperature Pulse Rate 78 74 76 Respiratory Rate Blood Pressure Blood Pressure [Left] O2 Sat by Pulse 100 99 99 Oximetry 07/16/17 07/16/17 07/16/17 21:23 21:28 21:33 Temperature Pulse Rate 75 77 74 Respiratory Rate Blood Pressure Blood Pressure [Left] O2 Sat by Pulse 99 100 100 Oximetry 07/16/17 07/16/17 07/16/17 21:38 21:43 21:48 Temperature Pulse Rate 85 99 H 82 Respiratory Rate Blood Pressure Blood Pressure [Left] O2 Sat by Pulse 100 100 99 Oximetry 07/16/17 07/16/17 07/16/17 21:53 21:58 22:03 Temperature Pulse Rate 73 70 69 Respiratory Rate Blood Pressure Blood Pressure [Left] O2 Sat by Pulse 100 100 100 Oximetry 07/16/17 07/16/17 07/16/17 22:08 22:13 22:18 Temperature Pulse Rate 71 71 71 Respiratory Rate Blood Pressure Blood Pressure [Left] O2 Sat by Pulse 99 100 99 Oximetry 07/16/17 07/16/17 07/16/17 22:23 22:28 22:33 Temperature Pulse Rate 70 78 81 Respiratory Rate Blood Pressure Blood Pressure [Left] O2 Sat by Pulse 100 100 98 Oximetry 07/16/17 07/16/17 07/16/17 22:38 22:43 22:48 Temperature Pulse Rate 73 88 86 Respiratory Rate Blood Pressure Blood Pressure [Left] O2 Sat by Pulse 100 99 99 Oximetry 07/16/17 07/16/17 07/16/17 22:52 22:59 23:04 Temperature Pulse Rate 72 72 75 Respiratory Rate Blood Pressure 166/105 Blood Pressure [Left] O2 Sat by Pulse 99 98 Oximetry 07/16/17 07/16/17 07/16/17 23:09 23:14 23:19 Temperature Pulse Rate 74 71 90 Respiratory Rate Blood Pressure Blood Pressure [Left] O2 Sat by Pulse 100 100 100 Oximetry 07/16/17 07/16/17 07/16/17 23:23 23:24 23:29 Temperature Pulse Rate 68 68 69 Respiratory Rate Blood Pressure 175/99 Blood Pressure [Left] O2 Sat by Pulse 99 100 Oximetry 07/16/17 07/16/17 07/16/17 23:34 23:39 23:44 Temperature Pulse Rate 70 71 72 Respiratory Rate Blood Pressure Blood Pressure [Left] O2 Sat by Pulse 100 100 100 Oximetry 07/16/17 07/16/17 07/16/17 23:49 23:54 23:55 Temperature Pulse Rate 67 71 75 Respiratory Rate Blood Pressure 166/102 Blood Pressure [Left] O2 Sat by Pulse 100 99 Oximetry 07/16/17 07/17/17 07/17/17 23:59 00:04 00:09 Temperature Pulse Rate 69 70 68 Respiratory Rate Blood Pressure Blood Pressure [Left] O2 Sat by Pulse 100 99 100 Oximetry 07/17/17 07/17/17 07/17/17 00:14 00:19 00:23 Temperature Pulse Rate 68 76 68 Respiratory Rate Blood Pressure 169/104 Blood Pressure [Left] O2 Sat by Pulse 100 98 Oximetry 07/17/17 07/17/17 07/17/17 00:24 00:29 00:34 Temperature Pulse Rate 107 H 84 82 Respiratory Rate Blood Pressure Blood Pressure [Left] O2 Sat by Pulse 100 99 100 Oximetry 07/17/17 07/17/17 07/17/17 00:35 00:39 00:44 Temperature Pulse Rate 70 71 94 H Respiratory Rate Blood Pressure 169/104 Blood Pressure [Left] O2 Sat by Pulse 98 98 Oximetry 07/17/17 07/17/17 07/17/17 00:53 01:04 01:09 Temperature Pulse Rate 89 105 H 102 H Respiratory Rate Blood Pressure 139/88 Blood Pressure [Left] O2 Sat by Pulse 99 99 Oximetry 07/17/17 07/17/17 07/17/17 01:14 01:19 01:23 Temperature Pulse Rate 110 H 97 H 95 H Respiratory Rate Blood Pressure 134/83 Blood Pressure [Left] O2 Sat by Pulse 99 99 Oximetry 07/17/17 07/17/17 07/17/17 01:24 01:29 01:34 Temperature Pulse Rate 100 H 100 H 109 H Respiratory Rate Blood Pressure Blood Pressure [Left] O2 Sat by Pulse 99 99 99 Oximetry 07/17/17 07/17/17 07/17/17 01:39 01:44 01:49 Temperature Pulse Rate 116 H 111 H 99 H Respiratory Rate Blood Pressure Blood Pressure [Left] O2 Sat by Pulse 99 99 99 Oximetry 07/17/17 07/17/17 07/17/17 01:53 01:54 01:59 Temperature Pulse Rate 90 93 H 93 H Respiratory Rate Blood Pressure 132/87 Blood Pressure [Left] O2 Sat by Pulse 98 98 Oximetry 07/17/17 07/17/17 07/17/17 02:00 02:04 02:09 Temperature 98.1 F Pulse Rate 90 92 H Respiratory Rate Blood Pressure Blood Pressure [Left] O2 Sat by Pulse 98 98 Oximetry 07/17/17 07/17/17 07/17/17 02:14 02:19 02:23 Temperature Pulse Rate 95 H 95 H 85 Respiratory Rate Blood Pressure 129/71 Blood Pressure [Left] O2 Sat by Pulse 98 98 Oximetry 07/17/17 07/17/17 07/17/17 02:24 02:29 02:34 Temperature Pulse Rate 95 H 97 H 96 H Respiratory Rate Blood Pressure Blood Pressure [Left] O2 Sat by Pulse 98 98 98 Oximetry 07/17/17 07/17/17 07/17/17 02:39 02:44 02:49 Temperature Pulse Rate 97 H 98 H 82 Respiratory Rate Blood Pressure Blood Pressure [Left] O2 Sat by Pulse 98 98 97 Oximetry 07/17/17 07/17/17 07/17/17 02:53 02:55 02:59 Temperature Pulse Rate 108 H 102 H 102 H Respiratory Rate Blood Pressure 129/80 Blood Pressure [Left] O2 Sat by Pulse 98 98 Oximetry 07/17/17 07/17/17 07/17/17 03:05 03:10 03:15 Temperature Pulse Rate 101 H 99 H 101 H Respiratory Rate Blood Pressure Blood Pressure [Left] O2 Sat by Pulse 98 98 98 Oximetry 07/17/17 07/17/17 07/17/17 03:20 03:23 03:25 Temperature Pulse Rate 102 H 91 H 97 H Respiratory Rate Blood Pressure 127/76 Blood Pressure [Left] O2 Sat by Pulse 98 98 Oximetry 07/17/17 07/17/17 07/17/17 03:30 03:34 03:40 Temperature Pulse Rate 100 H 99 H 101 H Respiratory Rate Blood Pressure Blood Pressure [Left] O2 Sat by Pulse 99 98 99 Oximetry 07/17/17 07/17/17 07/17/17 03:45 03:50 03:53 Temperature Pulse Rate 99 H 101 H 86 Respiratory Rate Blood Pressure 132/74 Blood Pressure [Left] O2 Sat by Pulse 99 99 Oximetry 07/17/17 07/17/17 07/17/17 03:55 04:00 04:05 Temperature Pulse Rate 98 H 100 H 100 H Respiratory Rate Blood Pressure Blood Pressure [Left] O2 Sat by Pulse 99 99 99 Oximetry 07/17/17 07/17/17 07/17/17 04:10 04:15 04:20 Temperature Pulse Rate 102 H 100 H 104 H Respiratory Rate Blood Pressure Blood Pressure [Left] O2 Sat by Pulse 99 99 98 Oximetry 07/17/17 07/17/17 07/17/17 04:23 04:25 04:30 Temperature Pulse Rate 101 H 95 H 103 H Respiratory Rate Blood Pressure 129/80 Blood Pressure [Left] O2 Sat by Pulse 98 98 Oximetry 07/17/17 07/17/17 07/17/17 04:35 04:40 04:45 Temperature Pulse Rate 97 H 91 H 98 H Respiratory Rate Blood Pressure Blood Pressure [Left] O2 Sat by Pulse 99 98 98 Oximetry 07/17/17 07/17/17 07/17/17 04:50 04:53 04:55 Temperature Pulse Rate 97 H 93 H 97 H Respiratory Rate Blood Pressure 124/78 Blood Pressure [Left] O2 Sat by Pulse 99 99 Oximetry 07/17/17 07/17/17 07/17/17 05:00 05:05 05:10 Temperature Pulse Rate 96 H 92 H 96 H Respiratory Rate Blood Pressure Blood Pressure [Left] O2 Sat by Pulse 99 99 99 Oximetry 07/17/17 07/17/17 07/17/17 05:15 05:20 05:23 Temperature Pulse Rate 98 H 94 H 93 H Respiratory Rate Blood Pressure 133/82 Blood Pressure [Left] O2 Sat by Pulse 99 99 Oximetry 07/17/17 07/17/17 07/17/17 05:25 05:29 05:35 Temperature Pulse Rate 88 92 H 88 Respiratory Rate Blood Pressure Blood Pressure [Left] O2 Sat by Pulse 99 99 99 Oximetry 07/17/17 07/17/17 07/17/17 05:40 05:45 05:50 Temperature Pulse Rate 97 H 96 H 92 H Respiratory Rate Blood Pressure Blood Pressure [Left] O2 Sat by Pulse 99 99 99 Oximetry 07/17/17 07/17/17 07/17/17 05:53 05:55 06:00 Temperature Pulse Rate 99 H 84 98 H Respiratory Rate Blood Pressure 139/83 Blood Pressure [Left] O2 Sat by Pulse 99 97 Oximetry 07/17/17 07/17/17 07/17/17 06:05 06:10 06:15 Temperature Pulse Rate 101 H 92 H 98 H Respiratory Rate Blood Pressure Blood Pressure [Left] O2 Sat by Pulse 98 97 98 Oximetry 07/17/17 06:31 Temperature 98.0 F Pulse Rate Respiratory Rate Blood Pressure Blood Pressure [Left] O2 Sat by Pulse Oximetry - Exam Breasts: deferred Cardiovascular: Regular rate Lungs: Normal air movement Abdomen: Present: normal appearance, soft. Absent: distention, tenderness Vulva: both: normal Uterus: Present: normal FHR: auscultation normal, category 1 Uterine Contraction Monitor Mode: External Uterine Contraction Pattern: Absent Uterine Tone Measurement Phase: Resting Extremities: edema Deep Tendon Reflex Grade: Normal +2 - Labs Labs: Abnormal Labs 07/14/17 07/14/17 07/15/17 16:35 16:35 07:01 RBC RDW 17.2 H Plt Count 112 L Creatinine 0.6 L Magnesium 8.20 H AST 180 H ALT 96 H Lactate Dehydrogenase 717 H Urine Creatinine Ur Total Protein 24 Hr Urine Total Protein 07/15/17 07/15/17 07/15/17 07:16 10:59 10:59 RBC RDW 17.5 H Plt Count 128 L Creatinine Magnesium 7.80 H AST 88 H ALT 71 H Lactate Dehydrogenase 486 H Urine Creatinine Ur Total Protein 24 Hr Urine Total Protein 07/15/17 07/15/17 07/15/17 18:00 18:00 18:56 RBC RDW Plt Count Creatinine Magnesium 4.80 H AST ALT Lactate Dehydrogenase Urine Creatinine 100.2 H Ur Total Protein 24 Hr 1551.00 H Urine Total Protein 141 H 07/16/17 07/16/17 06:05 06:05 RBC 3.30 L RDW 17.0 H Plt Count Creatinine Magnesium AST 50 H ALT Lactate Dehydrogenase 481 H Urine Creatinine Ur Total Protein 24 Hr Urine Total Protein Laboratory Results - last 24 hr 07/16/17 07/16/17 06:05 06:05 WBC 9.1 RBC 3.30 L Hgb 10.3 Hct 30.5 MCV 92 MCH 31 MCHC 34 RDW 17.0 H Plt Count 151 Creatinine 0.8 Estimated GFR > 60 AST 50 H ALT 48 Lactate Dehydrogenase 481 H
[2017-07-17 07:05] LABS: Hematocrit 30.9 % (30.3-42.9); Hemoglobin 10.4 gm/dl (10.1-14.3); Mean Corpuscular HGB Conc 34 % (30-34); Mean Corpuscular Hemoglobin 32 pg (28-32); Mean Corpuscular Volume 94 fl (79-97); Platelet Count 153 K/mm3 (140-440); Red Cell Distribution Width 17.4 % (13.2-15.2); White Blood Count 10.4 K/mm3 (4.5-11.0)
[2017-07-17 07:27] LABS: Alanine Aminotransferase 40 units/L (7-56); Albumin 2.4 g/dL (3.9-5); Albumin/Globulin Ratio 0.8 %; Alkaline Phosphatase 178 units/L (35-129); Anion Gap 16 mmol/L; BUN/Creatinine Ratio 21; Bilirubin,Total < 0.20 mg/dL (0.1-1.2); Blood Urea Nitrogen 15 mg/dL (7-17); Calcium 7.3 mg/dL (8.4-10.2); Carbon Dioxide 22 mmol/L (22-30); Chloride 107.7 mmol/L (98-107); Glucose 83 mg/dL (65-100); Potassium 4.3 mmol/L (3.6-5.0); Sodium 141 mmol/L (137-145); Total Protein 5.4 g/dL (6.3-8.2)
[2017-07-17] MEDS ORDERED: FIORICET PO PRN (08:00)
[2017-07-17] MEDS: HEPARIN SUB-Q SCH ×2 (09:52→23:21)
[2017-07-17] MEDS: PRENATAL VITAMIN PO SCH (09:58)
--- NOTE | 2017-07-17 12:33 | Progress Note ---
Assessment and Plan Assessment: 1. IUP 25w4d 2. SLE 3. suspected severe preeclampsia (severe HTN, increase in proteinuria) 4. IUGR with abnormal Dopplers 5. ITP 6. h/o PE Recommendations: 1. BP meds to keep BP 120-160/80-105. 2. Labs every 1-2 days to r/o HELLP. 3. Repeat Dopplers today then every 2 days. 4. Repeat EFW every 2 weeks. 5. Continue prophylactic heparin. 6. Continue prednisone 5mg/day (was taking as outpatient). Subjective - Subjective Date of service: 07/17/17 Principal diagnosis: 1. IUP 25w4d 2. SLE 3. susp. severe Pre E 4. h/o PE 5. ITP Patient reports: movement normal, other (intermittent headache, not currently present; denies blurry vision), no loss of fluid, no vaginal bleeding , no contractions Objective - Vital Signs Vital Signs: Vital Signs - 12hr 07/17/17 07/17/17 07/17/17 00:35 00:39 00:44 Temperature Pulse Rate 70 71 94 H Respiratory Rate Blood Pressure 169/104 Blood Pressure [Left] O2 Sat by Pulse 98 98 Oximetry 07/17/17 07/17/17 07/17/17 00:53 01:04 01:09 Temperature Pulse Rate 89 105 H 102 H Respiratory Rate Blood Pressure 139/88 Blood Pressure [Left] O2 Sat by Pulse 99 99 Oximetry 07/17/17 07/17/17 07/17/17 01:14 01:19 01:23 Temperature Pulse Rate 110 H 97 H 95 H Respiratory Rate Blood Pressure 134/83 Blood Pressure [Left] O2 Sat by Pulse 99 99 Oximetry 07/17/17 07/17/17 07/17/17 01:24 01:29 01:34 Temperature Pulse Rate 100 H 100 H 109 H Respiratory Rate Blood Pressure Blood Pressure [Left] O2 Sat by Pulse 99 99 99 Oximetry 07/17/17 07/17/17 07/17/17 01:39 01:44 01:49 Temperature Pulse Rate 116 H 111 H 99 H Respiratory Rate Blood Pressure Blood Pressure [Left] O2 Sat by Pulse 99 99 99 Oximetry 07/17/17 07/17/17 07/17/17 01:53 01:54 01:59 Temperature Pulse Rate 90 93 H 93 H Respiratory Rate Blood Pressure 132/87 Blood Pressure [Left] O2 Sat by Pulse 98 98 Oximetry 07/17/17 07/17/17 07/17/17 02:00 02:04 02:09 Temperature 98.1 F Pulse Rate 90 92 H Respiratory Rate Blood Pressure Blood Pressure [Left] O2 Sat by Pulse 98 98 Oximetry 07/17/17 07/17/17 07/17/17 02:14 02:19 02:23 Temperature Pulse Rate 95 H 95 H 85 Respiratory Rate Blood Pressure 129/71 Blood Pressure [Left] O2 Sat by Pulse 98 98 Oximetry 07/17/17 07/17/17 07/17/17 02:24 02:29 02:34 Temperature Pulse Rate 95 H 97 H 96 H Respiratory Rate Blood Pressure Blood Pressure [Left] O2 Sat by Pulse 98 98 98 Oximetry 07/17/17 07/17/17 07/17/17 02:39 02:44 02:49 Temperature Pulse Rate 97 H 98 H 82 Respiratory Rate Blood Pressure Blood Pressure [Left] O2 Sat by Pulse 98 98 97 Oximetry 07/17/17 07/17/17 07/17/17 02:53 02:55 02:59 Temperature Pulse Rate 108 H 102 H 102 H Respiratory Rate Blood Pressure 129/80 Blood Pressure [Left] O2 Sat by Pulse 98 98 Oximetry 07/17/17 07/17/17 07/17/17 03:05 03:10 03:15 Temperature Pulse Rate 101 H 99 H 101 H Respiratory Rate Blood Pressure Blood Pressure [Left] O2 Sat by Pulse 98 98 98 Oximetry 07/17/17 07/17/17 07/17/17 03:20 03:23 03:25 Temperature Pulse Rate 102 H 91 H 97 H Respiratory Rate Blood Pressure 127/76 Blood Pressure [Left] O2 Sat by Pulse 98 98 Oximetry 07/17/17 07/17/17 07/17/17 03:30 03:34 03:40 Temperature Pulse Rate 100 H 99 H 101 H Respiratory Rate Blood Pressure Blood Pressure [Left] O2 Sat by Pulse 99 98 99 Oximetry 07/17/17 07/17/17 07/17/17 03:45 03:50 03:53 Temperature Pulse Rate 99 H 101 H 86 Respiratory Rate Blood Pressure 132/74 Blood Pressure [Left] O2 Sat by Pulse 99 99 Oximetry 07/17/17 07/17/17 07/17/17 03:55 04:00 04:05 Temperature Pulse Rate 98 H 100 H 100 H Respiratory Rate Blood Pressure Blood Pressure [Left] O2 Sat by Pulse 99 99 99 Oximetry 07/17/17 07/17/17 07/17/17 04:10 04:15 04:20 Temperature Pulse Rate 102 H 100 H 104 H Respiratory Rate Blood Pressure Blood Pressure [Left] O2 Sat by Pulse 99 99 98 Oximetry 07/17/17 07/17/17 07/17/17 04:23 04:25 04:30 Temperature Pulse Rate 101 H 95 H 103 H Respiratory Rate Blood Pressure 129/80 Blood Pressure [Left] O2 Sat by Pulse 98 98 Oximetry 07/17/17 07/17/17 07/17/17 04:35 04:40 04:45 Temperature Pulse Rate 97 H 91 H 98 H Respiratory Rate Blood Pressure Blood Pressure [Left] O2 Sat by Pulse 99 98 98 Oximetry 07/17/17 07/17/17 07/17/17 04:50 04:53 04:55 Temperature Pulse Rate 97 H 93 H 97 H Respiratory Rate Blood Pressure 124/78 Blood Pressure [Left] O2 Sat by Pulse 99 99 Oximetry 07/17/17 07/17/17 07/17/17 05:00 05:05 05:10 Temperature Pulse Rate 96 H 92 H 96 H Respiratory Rate Blood Pressure Blood Pressure [Left] O2 Sat by Pulse 99 99 99 Oximetry 07/17/17 07/17/17 07/17/17 05:15 05:20 05:23 Temperature Pulse Rate 98 H 94 H 93 H Respiratory Rate Blood Pressure 133/82 Blood Pressure [Left] O2 Sat by Pulse 99 99 Oximetry 07/17/17 07/17/17 07/17/17 05:25 05:29 05:35 Temperature Pulse Rate 88 92 H 88 Respiratory Rate Blood Pressure Blood Pressure [Left] O2 Sat by Pulse 99 99 99 Oximetry 07/17/17 07/17/17 07/17/17 05:40 05:45 05:50 Temperature Pulse Rate 97 H 96 H 92 H Respiratory Rate Blood Pressure Blood Pressure [Left] O2 Sat by Pulse 99 99 99 Oximetry 07/17/17 07/17/17 07/17/17 05:53 05:55 06:00 Temperature Pulse Rate 99 H 84 98 H Respiratory Rate Blood Pressure 139/83 Blood Pressure [Left] O2 Sat by Pulse 99 97 Oximetry 07/17/17 07/17/17 07/17/17 06:05 06:10 06:15 Temperature Pulse Rate 101 H 92 H 98 H Respiratory Rate Blood Pressure Blood Pressure [Left] O2 Sat by Pulse 98 97 98 Oximetry 07/17/17 07/17/17 07/17/17 06:31 06:53 07:23 Temperature 98.0 F Pulse Rate 93 H 78 Respiratory Rate Blood Pressure 137/91 155/92 Blood Pressure [Left] O2 Sat by Pulse Oximetry 07/17/17 07/17/17 07/17/17 07:53 07:55 07:59 Temperature 97.5 F L Pulse Rate 80 79 79 Respiratory 18 Rate Blood Pressure 153/89 144/85 Blood Pressure 144/85 [Left] O2 Sat by Pulse Oximetry 07/17/17 07/17/17 07/17/17 08:23 08:54 09:23 Temperature Pulse Rate 80 86 Respiratory 18 Rate Blood Pressure 174/112 157/103 Blood Pressure [Left] O2 Sat by Pulse Oximetry 07/17/17 07/17/17 07/17/17 09:53 10:23 11:17 Temperature Pulse Rate 80 86 75 Respiratory Rate Blood Pressure 151/99 161/108 151/100 Blood Pressure [Left] O2 Sat by Pulse Oximetry 07/17/17 07/17/17 07/17/17 11:23 11:53 11:55 Temperature Pulse Rate 75 70 67 Respiratory Rate Blood Pressure 143/94 173/104 163/95 Blood Pressure [Left] O2 Sat by Pulse Oximetry 07/17/17 12:23 Temperature Pulse Rate 71 Respiratory Rate Blood Pressure 171/103 Blood Pressure [Left] O2 Sat by Pulse Oximetry - Exam Narrative Exam: appears well Abdomen: Present: soft. Absent: tenderness - Labs Labs: Abnormal Labs 07/14/17 07/14/17 07/15/17 16:35 16:35 07:01 RBC RDW 17.2 H Plt Count 112 L Chloride Creatinine 0.6 L Calcium Magnesium 8.20 H AST 180 H ALT 96 H Alkaline Phosphatase Lactate Dehydrogenase 717 H Total Protein Albumin Urine Creatinine Ur Total Protein 24 Hr Urine Total Protein 07/15/17 07/15/17 07/15/17 07:16 10:59 10:59 RBC RDW 17.5 H Plt Count 128 L Chloride Creatinine Calcium Magnesium 7.80 H AST 88 H ALT 71 H Alkaline Phosphatase Lactate Dehydrogenase 486 H Total Protein Albumin Urine Creatinine Ur Total Protein 24 Hr Urine Total Protein 07/15/17 07/15/17 07/15/17 18:00 18:00 18:56 RBC RDW Plt Count Chloride Creatinine Calcium Magnesium 4.80 H AST ALT Alkaline Phosphatase Lactate Dehydrogenase Total Protein Albumin Urine Creatinine 100.2 H Ur Total Protein 24 Hr 1551.00 H Urine Total Protein 141 H 07/16/17 07/16/17 07/17/17 06:05 06:05 06:40 RBC 3.30 L 3.30 L RDW 17.0 H 17.4 H Plt Count Chloride Creatinine Calcium Magnesium AST 50 H ALT Alkaline Phosphatase Lactate Dehydrogenase 481 H Total Protein Albumin Urine Creatinine Ur Total Protein 24 Hr Urine Total Protein 07/17/17 06:40 RBC RDW Plt Count Chloride 107.7 H Creatinine Calcium 7.3 L Magnesium AST ALT Alkaline Phosphatase 178 H Lactate Dehydrogenase Total Protein 5.4 L Albumin 2.4 L Urine Creatinine Ur Total Protein 24 Hr Urine Total Protein Laboratory Results - last 24 hr 07/17/17 07/17/17 06:40 06:40 WBC 10.4 RBC 3.30 L Hgb 10.4 Hct 30.9 MCV 94 MCH 32 MCHC 34 RDW 17.4 H Plt Count 153 Sodium 141 Potassium 4.3 Chloride 107.7 H Carbon Dioxide 22 Anion Gap 16 BUN 15 Creatinine 0.7 Estimated GFR > 60 BUN/Creatinine Ratio 21 Glucose 83 Calcium 7.3 L Total Bilirubin < 0.20 AST 40 ALT 40 Alkaline Phosphatase 178 H Total Protein 5.4 L Albumin 2.4 L Albumin/Globulin Ratio 0.8 - Results US- obstetric: report reviewed (07/15/17: KASIE 14.6cm, BPP 8/8, Dopplers w/ intermittent AEDV)
[2017-07-17] MEDS: APRESOLINE IV PRN (12:50)
[2017-07-17] MEDS: NORMODYNE PO SCH ×2 (12:51→23:19)
--- NOTE | 2017-07-17 13:41 | Event Note ---
Date: 07/17/17 ('s recommendations reviewed and ordered) 1. Labetalol 200mg po BID started 2. Prednisone 5mg po QD started 3. KASIE and Dopplers ordered 4. Pt aware of new orders and that she will be inpt for remainder of .
[2017-07-17] MEDS: DELTASONE PO SCH (13:58)
--- NOTE | 2017-07-17 15:09 | Ultrasound Report ---
ULTRASOUND OB LIMITED History: well being Technique: Transabdominal ultrasound with Doppler interrogation. Gestation: Single Position: Breech Amniotic Fluid: Normal KASIE = 13.9 cm Heart Rate: 141 BPM
--- NOTE | 2017-07-17 15:10 | Ultrasound Report ---
ULTRASOUND OB VELOCIMETRY UMBILICAL ARTERY History: well-being. Findings: Transabdominal ultrasound was performed with spectral Doppler interrogation. heart rate measures 138 beats per minutes. The spectral waveforms are normal and persistent. The S./D. ratio average measures 5.3. The resistive index average measures 0.8.
[2017-07-18] MEDS: APRESOLINE IV PRN ×2 (04:07→04:37)
--- NOTE | 2017-07-18 07:16 | Progress Note ---
Assessment and Plan Assessment: 1. IUP 25w5d 2. SLE 3. suspected severe preeclampsia (severe HTN, increase in proteinuria) 4. IUGR with abnormal Dopplers 5. ITP 6. h/o PE [facility] Recommendations: 1. BP meds to keep BP 120-160/80-105. 2. Labs every 1-2 days to r/o HELLP (done 07/17/17, ordered 07/19/17). 3. Repeat Dopplers every 2 days (done 07/17/17, ordered 07/19/17). 4. Repeat EFW every 2 weeks. 5. Continue prophylactic heparin. 6. Continue prednisone 5mg/day (was taking as outpatient). Patient resting without complaints, she reports eating well at meal times. reviewed plan of care and plan for dopplers and lab work tomorrow (ordered entered for q48h CBC, CMP and dopplers.) b/p's reviewed with elevations between [id number] now improved after 2 doses of hydralizine. I&O reviewed; output adequate (approx 40ml/hr). steroids completed 07/15/17. Patient may take quick shower this morning. Will continue to monitor closely and consult Dr. Jimenez - Patient Problems (1) 25 weeks gestation of Onset Date: ~07/17/17 Current Visit: Yes Status: Acute (2) Elevated blood pressure affecting in second trimester, antepartum Onset Date: ~07/17/17 Current Visit: Yes Status: Acute (3) IUGR (intrauterine growth restriction) Current Visit: Yes Status: Acute (4) Chronic ITP (idiopathic thrombocytopenic purpura) Onset Date: ~07/17/17 Current Visit: Yes Status: Chronic (5) History of pulmonary embolus (PE) Onset Date: ~07/17/17 Current Visit: Yes Status: Chronic (6) Lupus (systemic lupus erythematosus) Current Visit: Yes Status: Chronic Qualifiers: Systemic lupus erythematosus type: other Systemic lupus erythematosus organ involvement: glomerular disease Qualified Code(s): M32.14 - Glomerular disease in systemic lupus erythematosus Subjective - Subjective Date of service: 07/18/17 Principal diagnosis: 1. IUP 25w5d 2. SLE 3. susp. severe Pre E 4. h/o PE 5. ITP Patient reports: movement normal, other (denies MACKENZIE, epigastric pain or blurry vision), no new complaints, no loss of fluid, no vaginal bleeding, no contractions Objective - Vital Signs Vital Signs: Vital Signs - 12hr 07/17/17 07/17/17 07/17/17 19:23 19:58 20:28 Temperature Pulse Rate 88 85 94 H Respiratory Rate Blood Pressure 135/92 133/90 140/95 Blood Pressure [Left] O2 Sat by Pulse 99 Oximetry 07/17/17 07/17/17 07/17/17 20:50 20:55 20:58 Temperature 98.1 F Pulse Rate 93 H 93 H 90 Respiratory 18 Rate Blood Pressure 149/95 150/99 Blood Pressure 149/95 [Left] O2 Sat by Pulse Oximetry 07/17/17 07/17/17 07/17/17 21:30 22:28 22:58 Temperature Pulse Rate 96 H 83 88 Respiratory Rate Blood Pressure 164/117 147/98 156/105 Blood Pressure [Left] O2 Sat by Pulse Oximetry 07/17/17 07/17/17 07/17/17 23:13 23:18 23:19 Temperature Pulse Rate 82 82 86 Respiratory Rate Blood Pressure 156/105 Blood Pressure [Left] O2 Sat by Pulse 100 100 Oximetry 07/17/17 07/17/17 07/17/17 23:23 23:28 23:33 Temperature Pulse Rate 86 82 85 Respiratory Rate Blood Pressure 150/95 Blood Pressure [Left] O2 Sat by Pulse 100 100 100 Oximetry 07/17/17 07/17/17 07/17/17 23:38 23:43 23:48 Temperature Pulse Rate 86 86 93 H Respiratory Rate Blood Pressure Blood Pressure [Left] O2 Sat by Pulse 100 100 100 Oximetry 07/17/17 07/17/17 07/18/17 23:53 23:58 00:03 Temperature 97.9 F Pulse Rate 83 85 87 Respiratory 18 Rate Blood Pressure 157/91 Blood Pressure 157/91 [Left] O2 Sat by Pulse 100 100 100 Oximetry 07/18/17 07/18/17 07/18/17 00:08 00:13 00:18 Temperature Pulse Rate 81 85 81 Respiratory Rate Blood Pressure Blood Pressure [Left] O2 Sat by Pulse 100 100 99 Oximetry 07/18/17 07/18/17 07/18/17 00:23 00:28 00:33 Temperature Pulse Rate 85 92 H 111 H Respiratory Rate Blood Pressure 147/92 Blood Pressure [Left] O2 Sat by Pulse 98 100 100 Oximetry 07/18/17 07/18/17 07/18/17 00:38 00:43 00:48 Temperature Pulse Rate 88 86 94 H Respiratory Rate Blood Pressure Blood Pressure [Left] O2 Sat by Pulse 100 100 100 Oximetry 07/18/17 07/18/17 07/18/17 00:53 00:58 01:41 Temperature Pulse Rate 85 83 97 H Respiratory Rate Blood Pressure 157/98 139/93 Blood Pressure [Left] O2 Sat by Pulse 100 100 Oximetry 07/18/17 07/18/17 07/18/17 01:58 02:28 02:59 Temperature Pulse Rate 87 86 85 Respiratory Rate Blood Pressure 138/90 138/87 164/96 Blood Pressure [Left] O2 Sat by Pulse Oximetry 07/18/17 07/18/17 07/18/17 03:59 04:05 04:07 Temperature 97.9 F Pulse Rate 78 70 76 Respiratory 18 Rate Blood Pressure 174/113 165/107 165/107 Blood Pressure 165/107 [Left] O2 Sat by Pulse 99 Oximetry 07/18/17 07/18/17 07/18/17 04:10 04:14 04:15 Temperature Pulse Rate 75 75 77 Respiratory Rate Blood Pressure 176/107 Blood Pressure [Left] O2 Sat by Pulse 98 99 Oximetry 07/18/17 07/18/17 07/18/17 04:17 04:24 04:28 Temperature Pulse Rate 78 78 74 Respiratory Rate Blood Pressure 171/109 167/106 175/104 Blood Pressure [Left] O2 Sat by Pulse 99 Oximetry 07/18/17 07/18/17 07/18/17 04:29 04:34 04:37 Temperature Pulse Rate 75 82 82 Respiratory 18 Rate Blood Pressure 158/96 Blood Pressure 158/96 [Left] O2 Sat by Pulse 98 99 96 Oximetry 07/18/17 07/18/17 07/18/17 04:39 04:44 04:49 Temperature Pulse Rate 81 83 81 Respiratory Rate Blood Pressure 158/96 Blood Pressure [Left] O2 Sat by Pulse 99 97 96 Oximetry 07/18/17 07/18/17 07/18/17 04:53 04:54 04:58 Temperature Pulse Rate 89 87 90 Respiratory 18 Rate Blood Pressure 164/97 152/90 Blood Pressure 152/90 [Left] O2 Sat by Pulse 96 Oximetry 07/18/17 07/18/17 07/18/17 04:59 05:04 05:09 Temperature Pulse Rate 90 94 H 99 H Respiratory Rate Blood Pressure Blood Pressure [Left] O2 Sat by Pulse 97 98 98 Oximetry 07/18/17 07/18/17 07/18/17 05:14 05:19 05:24 Temperature Pulse Rate 97 H 102 H 103 H Respiratory Rate Blood Pressure Blood Pressure [Left] O2 Sat by Pulse 98 98 96 Oximetry 07/18/17 07/18/17 07/18/17 05:28 05:29 05:34 Temperature Pulse Rate 90 96 H 99 H Respiratory Rate Blood Pressure 137/77 Blood Pressure 137/77 [Left] O2 Sat by Pulse 96 96 Oximetry 07/18/17 07/18/17 07/18/17 05:39 05:44 05:49 Temperature Pulse Rate 98 H 98 H 100 H Respiratory Rate Blood Pressure Blood Pressure [Left] O2 Sat by Pulse 96 96 96 Oximetry 07/18/17 07/18/17 07/18/17 05:54 05:58 05:59 Temperature Pulse Rate 98 H 86 97 H Respiratory Rate Blood Pressure 138/72 Blood Pressure 138/72 [Left] O2 Sat by Pulse 95 96 Oximetry 07/18/17 07/18/17 07/18/17 06:00 06:04 06:09 Temperature 97.6 F Pulse Rate 86 92 H 94 H Respiratory Rate Blood Pressure Blood Pressure 138/72 [Left] O2 Sat by Pulse 96 95 Oximetry 07/18/17 07/18/17 07/18/17 06:14 06:19 06:24 Temperature Pulse Rate 99 H 97 H 93 H Respiratory Rate Blood Pressure Blood Pressure [Left] O2 Sat by Pulse 96 96 96 Oximetry 07/18/17 07/18/17 07/18/17 06:28 06:29 06:34 Temperature Pulse Rate 112 H 102 H 88 Respiratory Rate Blood Pressure 117/67 Blood Pressure [Left] O2 Sat by Pulse 97 97 Oximetry 07/18/17 07/18/17 07/18/17 06:39 06:44 06:58 Temperature Pulse Rate 97 H 101 H 100 H Respiratory Rate Blood Pressure 122/70 Blood Pressure [Left] O2 Sat by Pulse 97 97 Oximetry - Exam Breasts: normal Cardiovascular: Regular rate Lungs: Normal air movement Abdomen: Present: normal appearance, soft Uterus: Present: normal FHR: auscultation normal Uterine Contraction Monitor Mode: External Uterine Contraction Pattern: Absent Extremities: normal Deep Tendon Reflex Grade: Normal +2 - Labs Labs: Abnormal Labs 07/14/17 07/14/17 07/15/17 16:35 16:35 07:01 RBC RDW 17.2 H Plt Count 112 L Chloride Creatinine 0.6 L Calcium Magnesium 8.20 H AST 180 H ALT 96 H Alkaline Phosphatase Lactate Dehydrogenase 717 H Total Protein Albumin Urine Creatinine Ur Total Protein 24 Hr Urine Total Protein 07/15/17 07/15/17 07/15/17 07:16 10:59 10:59 RBC RDW 17.5 H Plt Count 128 L Chloride Creatinine Calcium Magnesium 7.80 H AST 88 H ALT 71 H Alkaline Phosphatase Lactate Dehydrogenase 486 H Total Protein Albumin Urine Creatinine Ur Total Protein 24 Hr Urine Total Protein 07/15/17 07/15/17 07/15/17 18:00 18:00 18:56 RBC RDW Plt Count Chloride Creatinine Calcium Magnesium 4.80 H AST ALT Alkaline Phosphatase Lactate Dehydrogenase Total Protein Albumin Urine Creatinine 100.2 H Ur Total Protein 24 Hr 1551.00 H Urine Total Protein 141 H 07/16/17 07/16/17 07/17/17 06:05 06:05 06:40 RBC 3.30 L 3.30 L RDW 17.0 H 17.4 H Plt Count Chloride Creatinine Calcium Magnesium AST 50 H ALT Alkaline Phosphatase Lactate Dehydrogenase 481 H Total Protein Albumin Urine Creatinine Ur Total Protein 24 Hr Urine Total Protein 07/17/17 06:40 RBC RDW Plt Count Chloride 107.7 H Creatinine Calcium 7.3 L Magnesium AST ALT Alkaline Phosphatase 178 H Lactate Dehydrogenase Total Protein 5.4 L Albumin 2.4 L Urine Creatinine Ur Total Protein 24 Hr Urine Total Protein Laboratory Results - last 24 hr 07/17/17 06:40 Sodium 141 Potassium 4.3 Chloride 107.7 H Carbon Dioxide 22 Anion Gap 16 BUN 15 Creatinine 0.7 Estimated GFR > 60 BUN/Creatinine Ratio 21 Glucose 83 Calcium 7.3 L Total Bilirubin < 0.20 AST 40 ALT 40 Alkaline Phosphatase 178 H Total Protein 5.4 L Albumin 2.4 L Albumin/Globulin Ratio 0.8
[2017-07-18] MEDS: PRENATAL VITAMIN PO SCH (10:20)
[2017-07-18] MEDS: NORMODYNE PO SCH ×2 (10:20→22:59)
[2017-07-18] MEDS: HEPARIN SUB-Q SCH ×3 (10:21→23:01)
[2017-07-18] MEDS: DELTASONE PO SCH (10:42)
--- NOTE | 2017-07-18 12:25 | Progress Note ---
Assessment and Plan [facility] recommendations 1. BP meds to keep BP 120-160/80-105. Currently on Labetalol 200mg bid, received Hydralazine 5mg IV today at 0430 2. Labs every 1-2 days to r/o HELLP. Labs ordered for 07/19/2017 3. Repeat Dopplers every 2 days. Will perform BPP now d/t decreased FM, dopplers ordered for tomorrow 4. Repeat EFW every 2 weeks. 5. Continue prophylactic heparin. 6. Continue prednisone 5mg/day (was taking as outpatient). - Patient Problems (1) 25 weeks gestation of Onset Date: ~07/17/17 Current Visit: Yes Status: Acute (2) Elevated blood pressure affecting in second trimester, antepartum Onset Date: ~07/17/17 Current Visit: Yes Status: Acute Plan to address problem: Suspect Severe PreE (3) Nonspecific elevation of levels of transaminase and lactic acid dehydrogenase [ldh] Current Visit: Yes Status: Resolved (4) Chronic ITP (idiopathic thrombocytopenic purpura) Onset Date: ~07/17/17 Current Visit: Yes Status: Chronic (5) History of pulmonary embolus (PE) Onset Date: ~07/17/17 Current Visit: Yes Status: Chronic (6) Migraine Current Visit: Yes Status: Chronic Qualifiers: Status migrainosus presence: without status migrainosus Intractability: not intractable (7) Lupus (systemic lupus erythematosus) Current Visit: Yes Status: Chronic Qualifiers: Systemic lupus erythematosus type: other Systemic lupus erythematosus organ involvement: glomerular disease Qualified Code(s): M32.14 - Glomerular disease in systemic lupus erythematosus Subjective - Subjective Date of service: 07/18/17 Principal diagnosis: IUP@25 2/7wga, IUGR, Severe PreE, ITP, h/o PE, SLE, migraines Interval history: Past History : 2 Term Births: 0 Premature Births: 1 Living Children: 1 Para: 1 Mult. Births: 0 Prev : 0 Prev. attempt? 0 Aborta: 0 Elect. Ab: 0 Spont. Ab: 0 Ectopics: 0 # 1 Delivery date: 07/26/2009 Weeks Gestation: 23 Delivery type: Hours of labor: 22 Anesthesia type: IV Delivery location: [place] Sex: Male weight: 1-1 Comments: HELLP induction Past Medical History: Lupus PTE dx 2009 and 2014 ITP Blood Transfusions multiple Migraines Past Surgical History: Bone marrow biopsy Family History Summary: Reviewed history and no changes required: 04/13/2017 Other family member - Has Family History of Coronary Heart Disease - Entered On : 09/17/2015 Other family member - Has No Family History of Breast Cancer - Entered On: 2015 Other family member - Has No Family History of Colon Cancer - Entered On: 2015 Other family member - Has No Family History of Diabetes - Entered On: 09/17/2015 Other family member - Has No Family History of Hypertension - Entered On: 2015 Other family member - Has No Family History of Ovarvian Cancer - Entered On: 09/17 Social History: Reviewed history from 09/17/2015 and no changes required: Patient is single Smoking History: Patient has never smoked. Risk Factors: Smoked Tobacco Use: Never smoker Smokeless Tobacco Use: Never Passive smoke exposure: no Drug use: no Alcohol use: no Dietary Counseling: yes Past Medical History Abnormal PAP: negative Uterine Anomaly: negative Social Hx: Patient is single Smoking History: Patient has never smoked. Genetic History Congenital Heart Defect: Mom: no Dad: no Flor Disease: Mom: no Dad: no Thalassemia Mom: no Dad: no Neural Tube Defect Mom: no Dad: no Down's Syndrome Mom: no Dad: no Rayray-Sachs Mom: no Dad: no Sickle Cell Disease/Trait Mom: no Dad: no Hemophilia Mom: no Dad: no Muscular Dystrophy Mom: no Dad: no Cystic Fibrosis Mom: no Dad: no [place] Chorea Mom: no Dad: no Mental Retardation Mom: no Dad: no Fragile X Mom: no Dad: no Other Genetic/Chromosomal Disorder Mom: no Dad: no Child w/other defect Mom: no Dad: no Enviromental Exposures Xray Exposure: no Medication, drug, or alcohol use since LMP: no Chemical/Other Exposure: no Exposure to Cat Liter: no Hx of Parvovirus (Fifth Disease): no Active Medications (reviewed today): LOVENOX 40 MG/0.4ML SC SOLN (ENOXAPARIN SODIUM) Subcutaneous injections once everyday PREDNISONE () PNV () Current Allergies (reviewed today): * NSAIDS (Critical) Patient reports: other (denies MACKENZIE, epigastric pain or blurry vision), no new complaints, no loss of fluid, no vaginal bleeding, no movement normal ( decreased today), no contractions Objective - Vital Signs Vital Signs: Vital Signs - 12hr 07/18/17 07/18/17 07/18/17 00:28 00:33 00:38 Temperature Pulse Rate 92 H 111 H 88 Respiratory Rate Blood Pressure 147/92 Blood Pressure [Left] O2 Sat by Pulse 100 100 100 Oximetry 07/18/17 07/18/17 07/18/17 00:43 00:48 00:53 Temperature Pulse Rate 86 94 H 85 Respiratory Rate Blood Pressure Blood Pressure [Left] O2 Sat by Pulse 100 100 100 Oximetry 07/18/17 07/18/17 07/18/17 00:58 01:41 01:58 Temperature Pulse Rate 83 97 H 87 Respiratory Rate Blood Pressure 157/98 139/93 138/90 Blood Pressure [Left] O2 Sat by Pulse 100 Oximetry 07/18/17 07/18/17 07/18/17 02:28 02:59 03:59 Temperature Pulse Rate 86 85 78 Respiratory Rate Blood Pressure 138/87 164/96 174/113 Blood Pressure [Left] O2 Sat by Pulse Oximetry 07/18/17 07/18/17 07/18/17 04:05 04:07 04:10 Temperature 97.9 F Pulse Rate 70 76 75 Respiratory 18 Rate Blood Pressure 165/107 165/107 Blood Pressure 165/107 [Left] O2 Sat by Pulse 99 98 Oximetry 07/18/17 07/18/17 07/18/17 04:14 04:15 04:17 Temperature Pulse Rate 75 77 78 Respiratory Rate Blood Pressure 176/107 171/109 Blood Pressure [Left] O2 Sat by Pulse 99 Oximetry 07/18/17 07/18/17 07/18/17 04:24 04:28 04:29 Temperature Pulse Rate 78 74 75 Respiratory Rate Blood Pressure 167/106 175/104 Blood Pressure [Left] O2 Sat by Pulse 99 98 Oximetry 07/18/17 07/18/17 07/18/17 04:34 04:37 04:39 Temperature Pulse Rate 82 82 81 Respiratory 18 Rate Blood Pressure 158/96 Blood Pressure 158/96 [Left] O2 Sat by Pulse 99 96 99 Oximetry 07/18/17 07/18/17 07/18/17 04:44 04:49 04:53 Temperature Pulse Rate 83 81 89 Respiratory Rate Blood Pressure 158/96 164/97 Blood Pressure [Left] O2 Sat by Pulse 97 96 Oximetry 07/18/17 07/18/17 07/18/17 04:54 04:58 04:59 Temperature Pulse Rate 87 90 90 Respiratory 18 Rate Blood Pressure 152/90 Blood Pressure 152/90 [Left] O2 Sat by Pulse 96 97 Oximetry 07/18/17 07/18/17 07/18/17 05:04 05:09 05:14 Temperature Pulse Rate 94 H 99 H 97 H Respiratory Rate Blood Pressure Blood Pressure [Left] O2 Sat by Pulse 98 98 98 Oximetry 07/18/17 07/18/17 07/18/17 05:19 05:24 05:28 Temperature Pulse Rate 102 H 103 H 90 Respiratory Rate Blood Pressure 137/77 Blood Pressure 137/77 [Left] O2 Sat by Pulse 98 96 Oximetry 07/18/17 07/18/17 07/18/17 05:29 05:34 05:39 Temperature Pulse Rate 96 H 99 H 98 H Respiratory Rate Blood Pressure Blood Pressure [Left] O2 Sat by Pulse 96 96 96 Oximetry 07/18/17 07/18/17 07/18/17 05:44 05:49 05:54 Temperature Pulse Rate 98 H 100 H 98 H Respiratory Rate Blood Pressure Blood Pressure [Left] O2 Sat by Pulse 96 96 95 Oximetry 07/18/17 07/18/17 07/18/17 05:58 05:59 06:00 Temperature 97.6 F Pulse Rate 86 97 H 86 Respiratory Rate Blood Pressure 138/72 Blood Pressure 138/72 138/72 [Left] O2 Sat by Pulse 96 Oximetry 07/18/17 07/18/17 07/18/17 06:04 06:09 06:14 Temperature Pulse Rate 92 H 94 H 99 H Respiratory Rate Blood Pressure Blood Pressure [Left] O2 Sat by Pulse 96 95 96 Oximetry 07/18/17 07/18/17 07/18/17 06:19 06:24 06:28 Temperature Pulse Rate 97 H 93 H 112 H Respiratory Rate Blood Pressure 117/67 Blood Pressure [Left] O2 Sat by Pulse 96 96 Oximetry 07/18/17 07/18/17 07/18/17 06:29 06:34 06:39 Temperature Pulse Rate 102 H 88 97 H Respiratory Rate Blood Pressure Blood Pressure [Left] O2 Sat by Pulse 97 97 97 Oximetry 07/18/17 07/18/1717 06:44 06:58 07:28 Temperature Pulse Rate 101 H 100 H 88 Respiratory Rate Blood Pressure 122/70 132/76 Blood Pressure [Left] O2 Sat by Pulse 97 Oximetry 07/18/17 07/18/17 07/18/17 07:43 07:46 07:48 Temperature 99.1 F Pulse Rate 93 H 95 H 88 Respiratory 18 Rate Blood Pressure 131/80 Blood Pressure 131/80 [Left] O2 Sat by Pulse 98 97 Oximetry 07/18/17 07/18/17 07/18/17 07:53 07:58 07:59 Temperature Pulse Rate 94 H 100 H 86 Respiratory Rate Blood Pressure 134/82 Blood Pressure [Left] O2 Sat by Pulse 98 98 Oximetry 07/18/17 07/18/17 07/18/17 08:03 08:04 09:04 Temperature Pulse Rate 89 84 96 H Respiratory Rate Blood Pressure 138/84 142/95 Blood Pressure [Left] O2 Sat by Pulse 99 Oximetry 07/18/17 07/18/17 07/18/17 10:04 10:20 11:04 Temperature Pulse Rate 97 H 97 H 102 H Respiratory Rate Blood Pressure 151/94 151/94 131/89 Blood Pressure [Left] O2 Sat by Pulse Oximetry 07/18/17 07/18/17 11:51 12:04 Temperature 99.3 F Pulse Rate 103 H Respiratory Rate Blood Pressure 147/85 Blood Pressure [Left] O2 Sat by Pulse Oximetry - Exam Breasts: deferred Cardiovascular: Regular rate Lungs: Clear to auscultation Abdomen: Present: normal appearance, soft, normal bowel sounds. Absent: tenderness, guarding Uterus: Absent: tenderness FHR: category 2 Uterine Contraction Monitor Mode: External Uterine Contraction Pattern: Absent Extremities: normal Deep Tendon Reflex Grade: Normal +2 - Labs Labs: Abnormal Labs 07/14/17 07/14/17 07/15/17 16:35 16:35 07:01 RBC RDW 17.2 H Plt Count 112 L Chloride Creatinine 0.6 L Calcium Magnesium 8.20 H AST 180 H ALT 96 H Alkaline Phosphatase Lactate Dehydrogenase 717 H Total Protein Albumin Urine Creatinine Ur Total Protein 24 Hr Urine Total Protein 07/15/17 07/15/17 07/15/17 07:16 10:59 10:59 RBC RDW 17.5 H Plt Count 128 L Chloride Creatinine Calcium Magnesium 7.80 H AST 88 H ALT 71 H Alkaline Phosphatase Lactate Dehydrogenase 486 H Total Protein Albumin Urine Creatinine Ur Total Protein 24 Hr Urine Total Protein 07/15/17 07/15/17 07/15/17 18:00 18:00 18:56 RBC RDW Plt Count Chloride Creatinine Calcium Magnesium 4.80 H AST ALT Alkaline Phosphatase Lactate Dehydrogenase Total Protein Albumin Urine Creatinine 100.2 H Ur Total Protein 24 Hr 1551.00 H Urine Total Protein 141 H 07/16/17 07/16/17 07/17/17 06:05 06:05 06:40 RBC 3.30 L 3.30 L RDW 17.0 H 17.4 H Plt Count Chloride Creatinine Calcium Magnesium AST 50 H ALT Alkaline Phosphatase Lactate Dehydrogenase 481 H Total Protein Albumin Urine Creatinine Ur Total Protein 24 Hr Urine Total Protein 07/17/17 06:40 RBC RDW Plt Count Chloride 107.7 H Creatinine Calcium 7.3 L Magnesium AST ALT Alkaline Phosphatase 178 H Lactate Dehydrogenase Total Protein 5.4 L Albumin 2.4 L Urine Creatinine Ur Total Protein 24 Hr Urine Total Protein
--- NOTE | 2017-07-18 14:27 | Ultrasound Report ---
FINAL REPORT EXAM: US OB BPP WO NON-STRESS HISTORY: decreased FM, Severe preeclampsia TECHNIQUE: Sonographic biophysical profile performed PRIORS: None. FINDINGS: There is a single live intrauterine of approximately 25 weeks 5 days according to the provided TRACY of 10/26/2017. cardiac activity seen, measured at 135 beats per minute Deepest amniotic fluid pocket measured at 4.8 cm. biophysical profile: breathing movements: 2 Gross body movements: 2 tone: 2 Amniotic fluid volume: 2 Score: 8 out of 8. IMPRESSION: Normal biophysical profile scoring 8 out of 8
[2017-07-19] MEDS: AMBIEN PO PRN ×2 (00:42→23:35)
[2017-07-19] MEDS: APRESOLINE IV PRN ×2 (02:42→07:35)
[2017-07-19] MEDS ORDERED: NORMODYNE PO SCH (07:35)
--- NOTE | 2017-07-19 07:40 | Progress Note ---
Assessment and Plan Labs improved, pending for today Assessment 1. 25+6 weeks 2. Suspected severe pre-eclampsia (elevated BP, worsning proteinuria) 3. SLE 4. ITP 5. IUGR 6. Hx of PE Recommendations 1. Close maternal and surveillance 2. Increase labetalol to 300mg BID, PRN IV meds to keep BP <160/105 3. Continue prophylactic dose heparin 4. Serial labs 5. UA dopplers frquently (every 1-3 days) 6. Prednisone Subjective - Subjective Date of service: 07/19/17 Principal diagnosis: IUP@25 2/7wga, IUGR, Severe PreE, ITP, h/o PE, SLE, migraines Patient reports: other (occasional RUQ pain, associated with moving around), no new complaints, no loss of fluid, no vaginal bleeding, no movement normal (decreased today), no contractions Objective - Vital Signs Vital Signs: Vital Signs - 12hr 07/18/17 07/18/17 07/18/17 20:04 20:05 20:13 Temperature 98.5 F Pulse Rate 86 86 82 Respiratory 16 Rate Blood Pressure 138/95 Blood Pressure 138/95 [Left] O2 Sat by Pulse 99 Oximetry 07/18/17 07/18/17 07/18/17 20:18 21:04 22:04 Temperature Pulse Rate 82 79 80 Respiratory Rate Blood Pressure 165/105 156/98 Blood Pressure [Left] O2 Sat by Pulse 99 Oximetry 07/18/17 07/18/17 07/18/17 22:59 23:11 23:42 Temperature Pulse Rate 80 88 90 Respiratory Rate Blood Pressure 156/98 165/110 172/110 Blood Pressure [Left] O2 Sat by Pulse Oximetry 07/19/17 07/19/17 07/19/17 00:12 00:42 00:43 Temperature Pulse Rate 85 94 H 80 Respiratory Rate Blood Pressure 167/106 183/112 163/103 Blood Pressure [Left] O2 Sat by Pulse Oximetry 07/19/17 07/19/17 07/19/17 01:12 01:42 02:12 Temperature Pulse Rate 80 75 96 H Respiratory Rate Blood Pressure 183/109 165/98 176/107 Blood Pressure [Left] O2 Sat by Pulse Oximetry 07/19/17 07/19/17 07/19/17 02:42 03:12 03:42 Temperature Pulse Rate 85 88 93 H Respiratory Rate Blood Pressure 165/93 148/88 147/90 Blood Pressure [Left] O2 Sat by Pulse Oximetry 07/19/17 07/19/17 07/19/17 04:13 04:42 05:12 Temperature Pulse Rate 99 H 86 96 H Respiratory Rate Blood Pressure 149/97 149/96 148/91 Blood Pressure [Left] O2 Sat by Pulse Oximetry 07/19/17 07/19/17 07/19/17 05:42 06:12 06:42 Temperature Pulse Rate 104 H 93 H 87 Respiratory Rate Blood Pressure 143/95 132/92 155/95 Blood Pressure [Left] O2 Sat by Pulse Oximetry 07/19/17 07/19/17 07:13 07:34 Temperature Pulse Rate 92 H 82 Respiratory Rate Blood Pressure 171/108 178/107 Blood Pressure [Left] O2 Sat by Pulse Oximetry - Exam Cardiovascular: Regular rate Lungs: Clear to auscultation Abdomen: Present: soft. Absent: tenderness Uterus: Present: normal Extremities: normal, edema (1+) - Labs Labs: Abnormal Labs 07/14/17 07/14/17 07/15/17 16:35 16:35 07:01 RBC RDW 17.2 H Plt Count 112 L Chloride Creatinine 0.6 L Calcium Magnesium 8.20 H AST 180 H ALT 96 H Alkaline Phosphatase Lactate Dehydrogenase 717 H Total Protein Albumin Urine Creatinine Ur Total Protein 24 Hr Urine Total Protein 07/15/17 07/15/17 07/15/17 07:16 10:59 10:59 RBC RDW 17.5 H Plt Count 128 L Chloride Creatinine Calcium Magnesium 7.80 H AST 88 H ALT 71 H Alkaline Phosphatase Lactate Dehydrogenase 486 H Total Protein Albumin Urine Creatinine Ur Total Protein 24 Hr Urine Total Protein 07/15/17 07/15/17 07/15/17 18:00 18:00 18:56 RBC RDW Plt Count Chloride Creatinine Calcium Magnesium 4.80 H AST ALT Alkaline Phosphatase Lactate Dehydrogenase Total Protein Albumin Urine Creatinine 100.2 H Ur Total Protein 24 Hr 1551.00 H Urine Total Protein 141 H 07/16/17 07/16/17 07/17/17 06:05 06:05 06:40 RBC 3.30 L 3.30 L RDW 17.0 H 17.4 H Plt Count Chloride Creatinine Calcium Magnesium AST 50 H ALT Alkaline Phosphatase Lactate Dehydrogenase 481 H Total Protein Albumin Urine Creatinine Ur Total Protein 24 Hr Urine Total Protein 07/17/17 06:40 RBC RDW Plt Count Chloride 107.7 H Creatinine Calcium 7.3 L Magnesium AST ALT Alkaline Phosphatase 178 H Lactate Dehydrogenase Total Protein 5.4 L Albumin 2.4 L Urine Creatinine Ur Total Protein 24 Hr Urine Total Protein
--- NOTE | 2017-07-19 07:40 | Progress Note ---
Assessment and Plan Assessment: 1. IUP 25w6d 2. SLE 3. suspected severe preeclampsia (severe HTN, increase in proteinuria) 4. IUGR with abnormal Dopplers 5. ITP 6. h/o PE [facility] Recommendations: 1. BP meds to keep BP 120-160/80-105 2. Labs every 1-2 days to r/o HELLP (done 07/17/17, ordered 07/19/17). 3. Repeat Dopplers every 2 days (done 07/17/17, ordered 07/19/17). 4. Repeat EFW every 2 weeks. 5. Continue prophylactic heparin. 6. Continue prednisone 5mg/day (was taking as outpatient). 7. Increase labetalol to 300mg BID Labs and doppler studies today. Elevated blood pressure throughout the night treated with hydralizine, this morning 170's/100's. Dr. Briceño recommended increasing labetalol to 300mg BID. Patient made aware. She denies any changes in status, denies feeling occasional ctx noted on toco. reports + fm. FHT with minimal variability this morning. CBC and CMP results pending. no I&O's documented on patient at this time, nurse reports emptying 800ml of urine this morning from bedside commode. Will update Dr. Noble and continue to monitor patient closely. - Patient Problems (1) 25 weeks gestation of Onset Date: ~07/17/17 Current Visit: Yes Status: Acute (2) Elevated blood pressure affecting in second trimester, antepartum Onset Date: ~07/17/17 Current Visit: Yes Status: Acute (3) IUGR (intrauterine growth restriction) Current Visit: Yes Status: Acute (4) Chronic ITP (idiopathic thrombocytopenic purpura) Onset Date: ~07/17/17 Current Visit: Yes Status: Chronic (5) History of pulmonary embolus (PE) Onset Date: ~07/17/17 Current Visit: Yes Status: Chronic (6) Lupus (systemic lupus erythematosus) Current Visit: Yes Status: Chronic Qualifiers: Systemic lupus erythematosus type: other Systemic lupus erythematosus organ involvement: glomerular disease Qualified Code(s): M32.14 - Glomerular disease in systemic lupus erythematosus Subjective - Subjective Date of service: 07/19/17 Principal diagnosis: IUP@25 6/7wga, IUGR, Severe PreE, ITP, h/o PE, SLE, migraines Patient reports: new complaints (facial edema, discomfort in arms from heparin injections), movement normal (decreased today), other (reports intermittant MACKENZIE, denies epigastric pain or blurry vision), no loss of fluid, no vaginal bleeding, no contractions Objective - Vital Signs Vital Signs: Vital Signs - 12hr 07/18/17 07/18/17 07/18/17 20:04 20:05 20:13 Temperature 98.5 F Pulse Rate 86 86 82 Respiratory 16 Rate Blood Pressure 138/95 Blood Pressure 138/95 [Left] O2 Sat by Pulse 99 Oximetry 07/18/17 07/18/17 07/18/17 20:18 21:04 22:04 Temperature Pulse Rate 82 79 80 Respiratory Rate Blood Pressure 165/105 156/98 Blood Pressure [Left] O2 Sat by Pulse 99 Oximetry 07/18/17 07/18/17 07/18/17 22:59 23:11 23:42 Temperature Pulse Rate 80 88 90 Respiratory Rate Blood Pressure 156/98 165/110 172/110 Blood Pressure [Left] O2 Sat by Pulse Oximetry 07/19/17 07/19/17 07/19/17 00:12 00:42 00:43 Temperature Pulse Rate 85 94 H 80 Respiratory Rate Blood Pressure 167/106 183/112 163/103 Blood Pressure [Left] O2 Sat by Pulse Oximetry 07/19/17 07/19/17 07/19/17 01:12 01:42 02:12 Temperature Pulse Rate 80 75 96 H Respiratory Rate Blood Pressure 183/109 165/98 176/107 Blood Pressure [Left] O2 Sat by Pulse Oximetry 07/19/17 07/19/17 07/19/17 02:42 03:12 03:42 Temperature Pulse Rate 85 88 93 H Respiratory Rate Blood Pressure 165/93 148/88 147/90 Blood Pressure [Left] O2 Sat by Pulse Oximetry 07/19/17 07/19/17 07/19/17 04:13 04:42 05:12 Temperature Pulse Rate 99 H 86 96 H Respiratory Rate Blood Pressure 149/97 149/96 148/91 Blood Pressure [Left] O2 Sat by Pulse Oximetry 07/19/17 07/19/17 07/19/17 05:42 06:12 06:42 Temperature Pulse Rate 104 H 93 H 87 Respiratory Rate Blood Pressure 143/95 132/92 155/95 Blood Pressure [Left] O2 Sat by Pulse Oximetry 07/19/17 07/19/17 07:13 07:34 Temperature Pulse Rate 92 H 82 Respiratory Rate Blood Pressure 171/108 178/107 Blood Pressure [Left] O2 Sat by Pulse Oximetry - Exam Breasts: normal Cardiovascular: Regular rate Lungs: Clear to auscultation, Normal air movement Abdomen: Present: normal appearance, soft Uterus: Present: normal FHR: category 2 (minimal variablity) Uterine Contraction Monitor Mode: External Uterine Contraction Pattern: Irregular Uterine Tone Measurement Phase: Contraction Uterine Contraction Intensity: Mild Extremities: normal Deep Tendon Reflex Grade: Normal +2 - Labs Labs: Abnormal Labs 07/14/17 07/14/17 07/15/17 16:35 16:35 07:01 RBC RDW 17.2 H Plt Count 112 L Chloride Creatinine 0.6 L Calcium Magnesium 8.20 H AST 180 H ALT 96 H Alkaline Phosphatase Lactate Dehydrogenase 717 H Total Protein Albumin Urine Creatinine Ur Total Protein 24 Hr Urine Total Protein 07/15/17 07/15/17 07/15/17 07:16 10:59 10:59 RBC RDW 17.5 H Plt Count 128 L Chloride Creatinine Calcium Magnesium 7.80 H AST 88 H ALT 71 H Alkaline Phosphatase Lactate Dehydrogenase 486 H Total Protein Albumin Urine Creatinine Ur Total Protein 24 Hr Urine Total Protein 07/15/17 07/15/17 07/15/17 18:00 18:00 18:56 RBC RDW Plt Count Chloride Creatinine Calcium Magnesium 4.80 H AST ALT Alkaline Phosphatase Lactate Dehydrogenase Total Protein Albumin Urine Creatinine 100.2 H Ur Total Protein 24 Hr 1551.00 H Urine Total Protein 141 H 07/16/17 07/16/17 07/17/17 06:05 06:05 06:40 RBC 3.30 L 3.30 L RDW 17.0 H 17.4 H Plt Count Chloride Creatinine Calcium Magnesium AST 50 H ALT Alkaline Phosphatase Lactate Dehydrogenase 481 H Total Protein Albumin Urine Creatinine Ur Total Protein 24 Hr Urine Total Protein 07/17/17 06:40 RBC RDW Plt Count Chloride 107.7 H Creatinine Calcium 7.3 L Magnesium AST ALT Alkaline Phosphatase 178 H Lactate Dehydrogenase Total Protein 5.4 L Albumin 2.4 L Urine Creatinine Ur Total Protein 24 Hr Urine Total Protein
[2017-07-19 07:41] LABS: Hematocrit 27.7 % (30.3-42.9); Hemoglobin 9.5 gm/dl (10.1-14.3); Mean Corpuscular HGB Conc 34 % (30-34); Mean Corpuscular Hemoglobin 32 pg (28-32); Mean Corpuscular Volume 94 fl (79-97); Platelet Count 126 K/mm3 (140-440); Red Blood Count 2.94 M/mm3 (3.65-5.03); Red Cell Distribution Width 17.6 % (13.2-15.2); White Blood Count 9.5 K/mm3 (4.5-11.0)
[2017-07-19 07:57] LABS: Alanine Aminotransferase 25 units/L (7-56); Albumin 2.3 g/dL (3.9-5); Albumin/Globulin Ratio 0.8 %; Alkaline Phosphatase 149 units/L (35-129); Anion Gap 17 mmol/L; BUN/Creatinine Ratio 26; Bilirubin,Total < 0.20 mg/dL (0.1-1.2); Blood Urea Nitrogen 21 mg/dL (7-17); Calcium 8.2 mg/dL (8.4-10.2); Carbon Dioxide 20 mmol/L (22-30); Chloride 109.2 mmol/L (98-107); Glucose 79 mg/dL (65-100); Potassium 4.4 mmol/L (3.6-5.0); Sodium 142 mmol/L (137-145); Total Protein 5.2 g/dL (6.3-8.2)
[2017-07-19] MEDS: PERCOCET 5/325 PO PRN (08:49)
--- NOTE | 2017-07-19 10:03 | Progress Note ---
Assessment and Plan - Patient Problems (1) 25 weeks gestation of Onset Date: ~07/17/17 Current Visit: Yes Status: Acute (2) Elevated blood pressure affecting in second trimester, antepartum Onset Date: ~07/17/17 Current Visit: Yes Status: Acute (3) Nonspecific elevation of levels of transaminase and lactic acid dehydrogenase [ldh] Current Visit: Yes Status: Resolved (4) Chronic ITP (idiopathic thrombocytopenic purpura) Onset Date: ~07/17/17 Current Visit: Yes Status: Chronic (5) History of pulmonary embolus (PE) Onset Date: ~07/17/17 Current Visit: Yes Status: Chronic (6) Lupus (systemic lupus erythematosus) Current Visit: Yes Status: Chronic Qualifiers: Systemic lupus erythematosus type: other Systemic lupus erythematosus organ involvement: glomerular disease Qualified Code(s): M32.14 - Glomerular disease in systemic lupus erythematosus (7) Migraine Current Visit: Yes Status: Chronic Qualifiers: Status migrainosus presence: without status migrainosus Intractability: not intractable (8) IUGR (intrauterine growth restriction) Current Visit: Yes Status: Acute Subjective - Subjective Principal diagnosis: IUP@25 6/7wga, IUGR, Severe PreE, ITP, h/o PE, SLE, migraines Interval history: Pt has been stable with normal bps since d/c of magnesium due to elevated levels until this am at change of shift. She needed to have one dose of hydralazine 10mg with decrease in BP. Pt has not sx and states she is feeling better. No pain , no headaches at this time. Pt LFTs are in normal ranges this am as well as normal platelets. BPP was 8/8 and dopplers showed AEDF that was intermittent. Pt s/p second dose of steroids @ 1800pm. Patient reports: new complaints (facial edema, discomfort in arms from heparin injections), movement normal (decreased today), other (reports intermittant MACKENZIE, denies epigastric pain or blurry vision), no loss of fluid, no vaginal bleeding, no contractions Objective - Vital Signs Vital Signs: Vital Signs - 12hr 07/18/17 07/18/17 07/18/17 22:59 23:11 23:42 Temperature Pulse Rate 80 88 90 Respiratory Rate Blood Pressure 156/98 165/110 172/110 Blood Pressure [Left] O2 Sat by Pulse Oximetry 07/19/17 07/19/17 07/19/17 00:12 00:42 00:43 Temperature Pulse Rate 85 94 H 80 Respiratory Rate Blood Pressure 167/106 183/112 163/103 Blood Pressure [Left] O2 Sat by Pulse Oximetry 07/19/17 07/19/17 07/19/17 01:12 01:42 02:12 Temperature Pulse Rate 80 75 96 H Respiratory Rate Blood Pressure 183/109 165/98 176/107 Blood Pressure [Left] O2 Sat by Pulse Oximetry 07/19/17 07/19/17 07/19/17 02:42 03:12 03:42 Temperature Pulse Rate 85 88 93 H Respiratory Rate Blood Pressure 165/93 148/88 147/90 Blood Pressure [Left] O2 Sat by Pulse Oximetry 07/19/17 07/19/17 07/19/17 04:13 04:42 05:12 Temperature Pulse Rate 99 H 86 96 H Respiratory Rate Blood Pressure 149/97 149/96 148/91 Blood Pressure [Left] O2 Sat by Pulse Oximetry 07/19/17 07/19/17 07/19/17 05:42 06:12 06:42 Temperature Pulse Rate 104 H 93 H 87 Respiratory Rate Blood Pressure 143/95 132/92 155/95 Blood Pressure [Left] O2 Sat by Pulse Oximetry 07/19/17 07/19/17 07/19/17 07:13 07:34 07:35 Temperature Pulse Rate 92 H 82 82 Respiratory Rate Blood Pressure 171/108 178/107 178/107 Blood Pressure [Left] O2 Sat by Pulse Oximetry 07/19/17 07/19/17 07/19/17 07:39 07:42 07:50 Temperature 98.6 F Pulse Rate 88 88 101 H Respiratory 20 Rate Blood Pressure 159/101 Blood Pressure 159/101 [Left] O2 Sat by Pulse 98 98 Oximetry 07/19/17 07/19/17 07/19/17 07:55 08:00 08:05 Temperature Pulse Rate 94 H 95 H 104 H Respiratory Rate Blood Pressure Blood Pressure [Left] O2 Sat by Pulse 98 98 98 Oximetry 07/19/17 07/19/17 07/19/17 08:10 08:12 08:49 Temperature Pulse Rate 105 H 95 H Respiratory 20 Rate Blood Pressure 144/92 Blood Pressure [Left] O2 Sat by Pulse 98 Oximetry 07/19/17 07/19/17 07/19/17 09:01 09:05 09:06 Temperature Pulse Rate 106 H 106 H 106 H Respiratory 20 Rate Blood Pressure 136/88 Blood Pressure 138/88 [Left] O2 Sat by Pulse 97 98 Oximetry 07/19/17 07/19/17 07/19/17 09:11 09:16 09:21 Temperature Pulse Rate 106 H 115 H 106 H Respiratory Rate Blood Pressure Blood Pressure [Left] O2 Sat by Pulse 98 98 98 Oximetry 07/19/17 07/19/17 07/19/17 09:26 09:31 09:36 Temperature Pulse Rate 107 H 110 H 105 H Respiratory Rate Blood Pressure Blood Pressure [Left] O2 Sat by Pulse 98 97 98 Oximetry 07/19/17 07/19/17 07/19/17 09:41 09:46 09:51 Temperature Pulse Rate 100 H 98 H 103 H Respiratory Rate Blood Pressure Blood Pressure [Left] O2 Sat by Pulse 97 97 97 Oximetry 07/19/17 07/19/17 07/19/17 09:56 10:01 10:06 Temperature Pulse Rate 105 H 103 H 99 H Respiratory Rate Blood Pressure Blood Pressure [Left] O2 Sat by Pulse 97 97 97 Oximetry - Labs Labs: Abnormal Labs 07/14/17 07/14/17 07/15/17 16:35 16:35 07:01 RBC Hgb Hct RDW 17.2 H Plt Count 112 L Chloride Carbon Dioxide BUN Creatinine 0.6 L Calcium Magnesium 8.20 H AST 180 H ALT 96 H Alkaline Phosphatase Lactate Dehydrogenase 717 H Total Protein Albumin Urine Creatinine Ur Total Protein 24 Hr Urine Total Protein 07/15/17 07/15/17 07/15/17 07:16 10:59 10:59 RBC Hgb Hct RDW 17.5 H Plt Count 128 L Chloride Carbon Dioxide BUN Creatinine Calcium Magnesium 7.80 H AST 88 H ALT 71 H Alkaline Phosphatase Lactate Dehydrogenase 486 H Total Protein Albumin Urine Creatinine Ur Total Protein 24 Hr Urine Total Protein 07/15/17 07/15/17 07/15/17 18:00 18:00 18:56 RBC Hgb Hct RDW Plt Count Chloride Carbon Dioxide BUN Creatinine Calcium Magnesium 4.80 H AST ALT Alkaline Phosphatase Lactate Dehydrogenase Total Protein Albumin Urine Creatinine 100.2 H Ur Total Protein 24 Hr 1551.00 H Urine Total Protein 141 H 12/03/17 12/03/17 12/04/17 06:05 06:05 06:40 RBC 3.30 L 3.30 L Hgb Hct RDW 17.0 H 17.4 H Plt Count Chloride Carbon Dioxide BUN Creatinine Calcium Magnesium AST 50 H ALT Alkaline Phosphatase Lactate Dehydrogenase 481 H Total Protein Albumin Urine Creatinine Ur Total Protein 24 Hr Urine Total Protein 07/17/17 07/19/17 07/19/17 06:40 07:14 07:14 RBC 2.94 L Hgb 9.5 L Hct 27.7 L RDW 17.6 H Plt Count 126 L Chloride 107.7 H 109.2 H Carbon Dioxide 20 L BUN 21 H Creatinine Calcium 7.3 L 8.2 L Magnesium AST ALT Alkaline Phosphatase 178 H 149 H Lactate Dehydrogenase Total Protein 5.4 L 5.2 L Albumin 2.4 L 2.3 L Urine Creatinine Ur Total Protein 24 Hr Urine Total Protein Laboratory Results - last 24 hr 07/19/17 07/19/17 07:14 07:14 WBC 9.5 RBC 2.94 L Hgb 9.5 L Hct 27.7 L MCV 94 MCH 32 MCHC 34 RDW 17.6 H Plt Count 126 L Sodium 142 Potassium 4.4 Chloride 109.2 H Carbon Dioxide 20 L Anion Gap 17 BUN 21 H Creatinine 0.8 Estimated GFR > 60 BUN/Creatinine Ratio 26 Glucose 79 Calcium 8.2 L Total Bilirubin < 0.20 AST 31 ALT 25 Alkaline Phosphatase 149 H Total Protein 5.2 L Albumin 2.3 L Albumin/Globulin Ratio 0.8
[2017-07-19] MEDS: DELTASONE PO SCH (10:32)
[2017-07-19] MEDS: HEPARIN SUB-Q SCH ×2 (10:33→22:15)
[2017-07-19] MEDS: NORMODYNE PO SCH ×2 (10:33→22:19)
[2017-07-19] MEDS: PRENATAL VITAMIN PO SCH (10:34)
[2017-07-19] MEDS: ZOFRAN IV PRN ×2 (11:08→22:24)
--- NOTE | 2017-07-19 11:17 | Progress Note ---
Assessment and Plan - Patient Problems (1) 25 weeks gestation of Onset Date: ~07/17/17 Current Visit: Yes Status: Acute (2) Elevated blood pressure affecting in second trimester, antepartum Onset Date: ~07/17/17 Current Visit: Yes Status: Acute (3) Nonspecific elevation of levels of transaminase and lactic acid dehydrogenase [ldh] Current Visit: Yes Status: Resolved Plan to address problem: -trending downward with some in normal range. Will monitor closely as this could be effects s/p BM. (4) Chronic ITP (idiopathic thrombocytopenic purpura) Onset Date: ~07/17/17 Current Visit: Yes Status: Chronic (5) History of pulmonary embolus (PE) Onset Date: ~07/17/17 Current Visit: Yes Status: Chronic (6) Lupus (systemic lupus erythematosus) Current Visit: Yes Status: Chronic Qualifiers: Systemic lupus erythematosus type: other Systemic lupus erythematosus organ involvement: glomerular disease Qualified Code(s): M32.14 - Glomerular disease in systemic lupus erythematosus (7) Migraine Current Visit: Yes Status: Chronic Qualifiers: Status migrainosus presence: without status migrainosus Intractability: not intractable (8) IUGR (intrauterine growth restriction) Current Visit: Yes Status: Acute (9) Severe preeclampsia Current Visit: Yes Status: Acute Qualifiers: Trimester: second trimester Qualified Code(s): O14.12 - Severe pre- eclampsia, second trimester Plan to address problem: recommendations as follows as per MFM. Recommendations 1. Close maternal and surveillance 2. Increase labetalol to 300mg BID, PRN IV meds to keep BP <160/105 3. Continue prophylactic dose heparin 4. Serial labs 5. UA dopplers frquently (every 1-3 days) 6. Prednisone Subjective - Subjective Date of service: 07/19/17 Principal diagnosis: IUP@25 6/7wga, IUGR, Severe PreE, ITP, h/o PE, SLE, migraines Interval history: Pt doing well this am when I saw her. She did c/o a slight headache but no other c/o of pain or contractions. She reports good movement. BPP today was 8/8 and final reading on dopplers report is pending at this time. Plan of care again d/w pt and questions were addressed and answered. Patient reports: new complaints (facial edema, discomfort in arms from heparin injections), movement normal (decreased today), other (reports intermittant MACKENZIE, denies epigastric pain or blurry vision), no loss of fluid, no vaginal bleeding, no contractions Objective - Vital Signs Vital Signs: Vital Signs - 12hr 07/18/17 07/19/17 07/19/17 23:42 00:12 00:42 Temperature Pulse Rate 90 85 94 H Respiratory Rate Blood Pressure 172/110 167/106 183/112 Blood Pressure [Left] O2 Sat by Pulse Oximetry 07/19/17 07/19/17 07/19/17 00:43 01:12 01:42 Temperature Pulse Rate 80 80 75 Respiratory Rate Blood Pressure 163/103 183/109 165/98 Blood Pressure [Left] O2 Sat by Pulse Oximetry 07/19/17 07/19/17 07/19/17 02:12 02:42 03:12 Temperature Pulse Rate 96 H 85 88 Respiratory Rate Blood Pressure 176/107 165/93 148/88 Blood Pressure [Left] O2 Sat by Pulse Oximetry 07/19/17 07/19/17 07/19/17 03:42 04:13 04:42 Temperature Pulse Rate 93 H 99 H 86 Respiratory Rate Blood Pressure 147/90 149/97 149/96 Blood Pressure [Left] O2 Sat by Pulse Oximetry 07/19/17 07/19/17 07/19/17 05:12 05:42 06:12 Temperature Pulse Rate 96 H 104 H 93 H Respiratory Rate Blood Pressure 148/91 143/95 132/92 Blood Pressure [Left] O2 Sat by Pulse Oximetry 07/19/17 07/19/17 07/19/17 06:42 07:13 07:34 Temperature Pulse Rate 87 92 H 82 Respiratory Rate Blood Pressure 155/95 171/108 178/107 Blood Pressure [Left] O2 Sat by Pulse Oximetry 07/19/17 07/19/17 07/19/17 07:35 07:39 07:42 Temperature 98.6 F Pulse Rate 82 88 88 Respiratory 20 Rate Blood Pressure 178/107 159/101 Blood Pressure 159/101 [Left] O2 Sat by Pulse 98 Oximetry 07/19/17 07/19/17 07/19/17 07:50 07:55 08:00 Temperature Pulse Rate 101 H 94 H 95 H Respiratory Rate Blood Pressure Blood Pressure [Left] O2 Sat by Pulse 98 98 98 Oximetry 07/19/17 07/19/17 07/19/17 08:05 08:10 08:12 Temperature Pulse Rate 104 H 105 H 95 H Respiratory Rate Blood Pressure 144/92 Blood Pressure [Left] O2 Sat by Pulse 98 98 Oximetry 07/19/17 07/19/17 07/19/17 08:49 09:01 09:05 Temperature Pulse Rate 106 H 106 H Respiratory 20 20 Rate Blood Pressure 136/88 Blood Pressure 138/88 [Left] O2 Sat by Pulse 97 Oximetry 07/19/17 07/19/17 07/19/17 09:06 09:11 09:16 Temperature Pulse Rate 106 H 106 H 115 H Respiratory Rate Blood Pressure Blood Pressure [Left] O2 Sat by Pulse 98 98 98 Oximetry 07/19/17 07/19/17 07/19/17 09:21 09:26 09:31 Temperature Pulse Rate 106 H 107 H 110 H Respiratory Rate Blood Pressure Blood Pressure [Left] O2 Sat by Pulse 98 98 97 Oximetry 07/19/17 07/19/17 07/19/17 09:36 09:41 09:46 Temperature Pulse Rate 105 H 100 H 98 H Respiratory Rate Blood Pressure Blood Pressure [Left] O2 Sat by Pulse 98 97 97 Oximetry 07/19/17 07/19/17 07/19/17 09:51 09:56 10:01 Temperature Pulse Rate 103 H 105 H 103 H Respiratory Rate Blood Pressure Blood Pressure [Left] O2 Sat by Pulse 97 97 97 Oximetry 07/19/17 07/19/17 07/19/17 10:06 10:11 10:16 Temperature Pulse Rate 99 H 108 H 100 H Respiratory Rate Blood Pressure Blood Pressure [Left] O2 Sat by Pulse 97 97 97 Oximetry 07/19/17 07/19/17 07/19/17 10:21 10:26 10:31 Temperature Pulse Rate 103 H 102 H 103 H Respiratory Rate Blood Pressure Blood Pressure [Left] O2 Sat by Pulse 97 97 96 Oximetry 07/19/17 07/19/17 07/19/17 10:33 10:36 10:41 Temperature Pulse Rate 97 H 103 H 101 H Respiratory Rate Blood Pressure 136/88 Blood Pressure [Left] O2 Sat by Pulse 98 97 Oximetry 07/19/17 10:46 Temperature Pulse Rate 111 H Respiratory Rate Blood Pressure Blood Pressure [Left] O2 Sat by Pulse 96 Oximetry - Exam Lungs: Normal air movement Abdomen: Present: normal appearance, soft. Absent: distention, tenderness, guarding FHR: category 1 - Labs Labs: Abnormal Labs 07/14/17 07/14/17 07/15/17 16:35 16:35 07:01 RBC Hgb Hct RDW 17.2 H Plt Count 112 L Chloride Carbon Dioxide BUN Creatinine 0.6 L Calcium Magnesium 8.20 H AST 180 H ALT 96 H Alkaline Phosphatase Lactate Dehydrogenase 717 H Total Protein Albumin Urine Creatinine Ur Total Protein 24 Hr Urine Total Protein 07/15/17 07/15/17 07/15/17 07:16 10:59 10:59 RBC Hgb Hct RDW 17.5 H Plt Count 128 L Chloride Carbon Dioxide BUN Creatinine Calcium Magnesium 7.80 H AST 88 H ALT 71 H Alkaline Phosphatase Lactate Dehydrogenase 486 H Total Protein Albumin Urine Creatinine Ur Total Protein 24 Hr Urine Total Protein 07/15/17 07/15/17 07/15/17 18:00 18:00 18:56 RBC Hgb Hct RDW Plt Count Chloride Carbon Dioxide BUN Creatinine Calcium Magnesium 4.80 H AST ALT Alkaline Phosphatase Lactate Dehydrogenase Total Protein Albumin Urine Creatinine 100.2 H Ur Total Protein 24 Hr 1551.00 H Urine Total Protein 141 H 07/16/17 07/16/17 07/17/17 06:05 06:05 06:40 RBC 3.30 L 3.30 L Hgb Hct RDW 17.0 H 17.4 H Plt Count Chloride Carbon Dioxide BUN Creatinine Calcium Magnesium AST 50 H ALT Alkaline Phosphatase Lactate Dehydrogenase 481 H Total Protein Albumin Urine Creatinine Ur Total Protein 24 Hr Urine Total Protein 07/17/17 07/19/17 07/19/17 06:40 07:14 07:14 RBC 2.94 L Hgb 9.5 L Hct 27.7 L RDW 17.6 H Plt Count 126 L Chloride 107.7 H 109.2 H Carbon Dioxide 20 L BUN 21 H Creatinine Calcium 7.3 L 8.2 L Magnesium AST ALT Alkaline Phosphatase 178 H 149 H Lactate Dehydrogenase Total Protein 5.4 L 5.2 L Albumin 2.4 L 2.3 L Urine Creatinine Ur Total Protein 24 Hr Urine Total Protein Laboratory Results - last 24 hr 07/19/17 07/19/17 07:14 07:14 WBC 9.5 RBC 2.94 L Hgb 9.5 L Hct 27.7 L MCV 94 MCH 32 MCHC 34 RDW 17.6 H Plt Count 126 L Sodium 142 Potassium 4.4 Chloride 109.2 H Carbon Dioxide 20 L Anion Gap 17 BUN 21 H Creatinine 0.8 Estimated GFR > 60 BUN/Creatinine Ratio 26 Glucose 79 Calcium 8.2 L Total Bilirubin < 0.20 AST 31 ALT 25 Alkaline Phosphatase 149 H Total Protein 5.2 L Albumin 2.3 L Albumin/Globulin Ratio 0.8
[2017-07-19] MEDS ORDERED: NORMODYNE PO ONE ×2 (11:52→15:00)
[2017-07-19] MEDS ORDERED: LACTATED RINGERS 0 ML ONE (17:44)
--- NOTE | 2017-07-20 06:37 | Progress Note ---
Assessment and Plan ASSESSMENT: 1. 26w0d 2. Suspected severe pre-eclampsia (elevated BP, worsning proteinuria) 3. SLE 4. ITP 5. IUGR 6. Hx of PE Recommendations 1. Close maternal and surveillance 2. Labetalol 300mg BID, PRN IV meds to keep BP <160/105 3. Continue prophylactic dose heparin 4. Serial labs ordered for this AM 5. UA dopplers frquently (every 2 days) 6. Prednisone 7. Will consult with 8. [facility] to see pt - Patient Problems (1) History of pulmonary embolus (PE) Onset Date: ~07/17/17 Current Visit: Yes Status: Chronic Plan to address problem: continue heparin therapy (2) Elevated blood pressure affecting in second trimester, antepartum Onset Date: ~07/17/17 Current Visit: Yes Status: Acute Plan to address problem: continue Labetalol 300mg po BID BP appear to be staying below 165/105 @ this dosage (3) Chronic ITP (idiopathic thrombocytopenic purpura) Onset Date: ~07/17/17 Current Visit: Yes Status: Chronic Plan to address problem: will monitor with schedule lab draws Subjective - Subjective Date of service: 07/20/17 (pt states she is feeling OK; c/o face and upper extremity swelling) Principal diagnosis: IUP@26w0d wga, IUGR, Severe PreE, ITP, h/o PE, SLE, migraines Patient reports: new complaints (facial edema, discomfort in arms from heparin injections continues today), movement normal (decreased today), other ( denies MACKENZIE, blurred vision, chest pain today), no loss of fluid, no vaginal bleeding, no contractions Objective - Vital Signs Vital Signs: Vital Signs - 12hr 07/19/17 07/19/17 07/19/17 21:12 22:19 22:30 Pulse Rate 77 77 87 Blood Pressure 140/88 140/88 165/91 07/20/17 07/20/17 07/20/17 01:08 02:08 03:09 Pulse Rate 98 H 80 93 H Blood Pressure 138/84 135/76 151/92 07/20/17 07/20/17 07/20/17 04:10 05:08 06:09 Pulse Rate 109 H 95 H 86 Blood Pressure 132/87 130/76 157/93 - Exam Breasts: normal Cardiovascular: Regular rate Lungs: Normal air movement Abdomen: Present: normal appearance, soft, normal bowel sounds. Absent: distention, tenderness Uterus: Present: normal FHR: auscultation normal, category 2 (random variables Unrelated to any tightening of the uterus) Uterine Contraction Monitor Mode: External Uterine Contraction Pattern: Absent Uterine Tone Measurement Phase: Resting Extremities: edema Deep Tendon Reflex Grade: Normal +2 - Labs Labs: Abnormal Labs 07/14/17 07/14/17 07/15/17 16:35 16:35 07:01 RBC Hgb Hct RDW 17.2 H Plt Count 112 L Chloride Carbon Dioxide BUN Creatinine 0.6 L Calcium Magnesium 8.20 H AST 180 H ALT 96 H Alkaline Phosphatase Lactate Dehydrogenase 717 H Total Protein Albumin Urine Creatinine Ur Total Protein 24 Hr Urine Total Protein 07/15/17 07/15/17 07/15/17 07:16 10:59 10:59 RBC Hgb Hct RDW 17.5 H Plt Count 128 L Chloride Carbon Dioxide BUN Creatinine Calcium Magnesium 7.80 H AST 88 H ALT 71 H Alkaline Phosphatase Lactate Dehydrogenase 486 H Total Protein Albumin Urine Creatinine Ur Total Protein 24 Hr Urine Total Protein 07/15/17 07/15/17 07/15/17 18:00 18:00 18:56 RBC Hgb Hct RDW Plt Count Chloride Carbon Dioxide BUN Creatinine Calcium Magnesium 4.80 H AST ALT Alkaline Phosphatase Lactate Dehydrogenase Total Protein Albumin Urine Creatinine 100.2 H Ur Total Protein 24 Hr 1551.00 H Urine Total Protein 141 H 07/16/17 07/16/17 07/17/17 06:05 06:05 06:40 RBC 3.30 L 3.30 L Hgb Hct RDW 17.0 H 17.4 H Plt Count Chloride Carbon Dioxide BUN Creatinine Calcium Magnesium AST 50 H ALT Alkaline Phosphatase Lactate Dehydrogenase 481 H Total Protein Albumin Urine Creatinine Ur Total Protein 24 Hr Urine Total Protein 07/17/17 07/19/17 07/19/17 06:40 07:14 07:14 RBC 2.94 L Hgb 9.5 L Hct 27.7 L RDW 17.6 H Plt Count 126 L Chloride 107.7 H 109.2 H Carbon Dioxide 20 L BUN 21 H Creatinine Calcium 7.3 L 8.2 L Magnesium AST ALT Alkaline Phosphatase 178 H 149 H Lactate Dehydrogenase Total Protein 5.4 L 5.2 L Albumin 2.4 L 2.3 L Urine Creatinine Ur Total Protein 24 Hr Urine Total Protein Laboratory Results - last 24 hr 07/19/17 07/19/17 07:14 07:14 WBC 9.5 RBC 2.94 L Hgb 9.5 L Hct 27.7 L MCV 94 MCH 32 MCHC 34 RDW 17.6 H Plt Count 126 L Sodium 142 Potassium 4.4 Chloride 109.2 H Carbon Dioxide 20 L Anion Gap 17 BUN 21 H Creatinine 0.8 Estimated GFR > 60 BUN/Creatinine Ratio 26 Glucose 79 Calcium 8.2 L Total Bilirubin < 0.20 AST 31 ALT 25 Alkaline Phosphatase 149 H Total Protein 5.2 L Albumin 2.3 L Albumin/Globulin Ratio 0.8
[2017-07-20] MEDS: PRENATAL VITAMIN PO SCH (10:26)
[2017-07-20] MEDS: NORMODYNE PO SCH ×2 (10:27→22:02)
[2017-07-20] MEDS: DELTASONE PO SCH (10:28)
[2017-07-20] MEDS: HEPARIN SUB-Q SCH ×2 (10:28→22:04)
[2017-07-20] MEDS: ZOFRAN IV PRN ×2 (10:36→21:47)
[2017-07-20] MEDS: AMBIEN PO PRN (23:55)
[2017-07-21] MEDS: APRESOLINE IV PRN ×4 (00:07→23:20)
--- NOTE | 2017-07-21 07:32 | Progress Note ---
Assessment and Plan Assessment: 1. IUP 26w1d 2. SLE 3. suspected severe preeclampsia (severe HTN, increase in proteinuria) 4. IUGR with abnormal Dopplers 5. ITP 6. h/o PE [facility]'s Recommendations: 1. BP meds to keep BP 120-160/80-105 2. Labs every 1-2 days to r/o HELLP (done 07/19/17, ordered 07/21/17). 3. Repeat Dopplers every 2 days (done 07/19/17, ordered 07/21/17). 4. Repeat EFW every 2 weeks. 5. Continue prophylactic heparin. 6. Continue prednisone 5mg/day (was taking as outpatient). 7. labetalol 300mg BID - Patient Problems (1) Elevated blood pressure affecting in second trimester, antepartum Onset Date: ~07/17/17 Current Visit: Yes Status: Acute (2) IUGR (intrauterine growth restriction) Current Visit: Yes Status: Acute (3) Chronic ITP (idiopathic thrombocytopenic purpura) Onset Date: ~07/17/17 Current Visit: Yes Status: Chronic (4) History of pulmonary embolus (PE) Onset Date: ~07/17/17 Current Visit: Yes Status: Chronic (5) Lupus (systemic lupus erythematosus) Current Visit: Yes Status: Chronic Qualifiers: Systemic lupus erythematosus type: other Systemic lupus erythematosus organ involvement: glomerular disease Qualified Code(s): M32.14 - Glomerular disease in systemic lupus erythematosus (6) 26 weeks gestation of Current Visit: Yes Status: Acute Subjective - Subjective Date of service: 07/21/17 Principal diagnosis: IUP@26w1d wga, IUGR, Severe PreE, ITP, h/o PE, SLE, migraines Patient reports: new complaints (facial edema, discomfort in arms from heparin injections continues today), movement normal (decreased today), other ( denies MACKENZIE, blurred vision, chest pain today), no loss of fluid, no vaginal bleeding, no contractions Objective - Vital Signs Vital Signs: Vital Signs - 12hr 07/20/17 07/20/17 07/20/17 19:46 20:10 21:10 Temperature 99.9 F H Pulse Rate 97 H 90 90 Respiratory 18 Rate Blood Pressure 158/90 152/92 Blood Pressure 133/83 [Left] O2 Sat by Pulse Oximetry 07/20/17 07/20/17 07/20/17 22:02 22:10 23:10 Temperature Pulse Rate 90 94 H 91 H Respiratory Rate Blood Pressure 152/92 156/97 168/113 Blood Pressure [Left] O2 Sat by Pulse Oximetry 07/21/17 07/21/17 07/21/17 00:04 00:07 00:09 Temperature Pulse Rate 89 83 83 Respiratory Rate Blood Pressure 161/107 174/114 174/114 Blood Pressure [Left] O2 Sat by Pulse Oximetry 07/21/17 07/21/17 07/21/17 00:44 01:27 01:44 Temperature Pulse Rate 90 86 82 Respiratory Rate Blood Pressure 168/100 168/103 179/102 Blood Pressure [Left] O2 Sat by Pulse Oximetry 07/21/17 07/21/17 07/21/17 02:05 02:14 02:44 Temperature Pulse Rate 82 86 107 H Respiratory Rate Blood Pressure 179/102 171/93 151/96 Blood Pressure [Left] O2 Sat by Pulse Oximetry 07/21/17 07/21/17 07/21/17 03:15 03:38 03:42 Temperature Pulse Rate 76 84 88 Respiratory Rate Blood Pressure 165/88 172/101 Blood Pressure [Left] O2 Sat by Pulse 99 Oximetry 07/21/17 07/21/17 07/21/17 03:43 04:14 04:44 Temperature Pulse Rate 90 100 H 96 H Respiratory Rate Blood Pressure 143/96 149/91 Blood Pressure [Left] O2 Sat by Pulse 100 Oximetry 07/21/17 07/21/17 07/21/17 05:14 05:44 07:16 Temperature Pulse Rate 105 H 92 H 103 H Respiratory Rate Blood Pressure 151/92 153/94 135/87 Blood Pressure [Left] O2 Sat by Pulse Oximetry - Exam Breasts: normal Lungs: Normal air movement Abdomen: Present: normal appearance, soft Uterus: Present: normal FHR: category 1 Uterine Contraction Monitor Mode: External - Labs Labs: Abnormal Labs 07/14/17 07/14/17 07/15/17 16:35 16:35 07:01 RBC Hgb Hct RDW 17.2 H Plt Count 112 L Chloride Carbon Dioxide BUN Creatinine 0.6 L Calcium Magnesium 8.20 H AST 180 H ALT 96 H Alkaline Phosphatase Lactate Dehydrogenase 717 H Total Protein Albumin Urine Creatinine Ur Total Protein 24 Hr Urine Total Protein 07/15/17 07/15/17 07/15/17 07:16 10:59 10:59 RBC Hgb Hct RDW 17.5 H Plt Count 128 L Chloride Carbon Dioxide BUN Creatinine Calcium Magnesium 7.80 H AST 88 H ALT 71 H Alkaline Phosphatase Lactate Dehydrogenase 486 H Total Protein Albumin Urine Creatinine Ur Total Protein 24 Hr Urine Total Protein 07/15/17 07/15/17 07/15/17 18:00 18:00 18:56 RBC Hgb Hct RDW Plt Count Chloride Carbon Dioxide BUN Creatinine Calcium Magnesium 4.80 H AST ALT Alkaline Phosphatase Lactate Dehydrogenase Total Protein Albumin Urine Creatinine 100.2 H Ur Total Protein 24 Hr 1551.00 H Urine Total Protein 141 H 07/16/17 07/16/17 07/17/17 06:05 06:05 06:40 RBC 3.30 L 3.30 L Hgb Hct RDW 17.0 H 17.4 H Plt Count Chloride Carbon Dioxide BUN Creatinine Calcium Magnesium AST 50 H ALT Alkaline Phosphatase Lactate Dehydrogenase 481 H Total Protein Albumin Urine Creatinine Ur Total Protein 24 Hr Urine Total Protein 07/17/17 07/19/17 07/19/17 06:40 07:14 07:14 RBC 2.94 L Hgb 9.5 L Hct 27.7 L RDW 17.6 H Plt Count 126 L Chloride 107.7 H 109.2 H Carbon Dioxide 20 L BUN 21 H Creatinine Calcium 7.3 L 8.2 L Magnesium AST ALT Alkaline Phosphatase 178 H 149 H Lactate Dehydrogenase Total Protein 5.4 L 5.2 L Albumin 2.4 L 2.3 L Urine Creatinine Ur Total Protein 24 Hr Urine Total Protein
[2017-07-21 07:42] LABS: Hemoglobin 9.7 gm/dl (10.1-14.3); Mean Corpuscular HGB Conc 34 % (30-34); Mean Corpuscular Hemoglobin 32 pg (28-32); Mean Corpuscular Volume 96 fl (79-97); Platelet Count 129 K/mm3 (140-440); Red Blood Count 3.02 M/mm3 (3.65-5.03); White Blood Count 9.3 K/mm3 (4.5-11.0)
--- NOTE | 2017-07-21 07:44 | Ultrasound Report ---
ULTRASOUND OB VELOCIMETRY UMBILICAL ARTERY HISTORY: Intrauterine growth restriction, preeclampsia FINDINGS: Transabdominal ultrasound with spectral Doppler interrogation was performed on 3 segments of the cord. heart rate measures 140 beats per minute. One of the segments demonstrates a normal spectral waveform. 2 of the segments demonstrate intermittent loss of end-diastolic flow. The S./D. ratio average measures 5.74. The average resistive index measures 0.83. Free loop pulsatility index average of measures 2.0.
[2017-07-21 07:56] LABS: Alanine Aminotransferase 22 units/L (7-56); Albumin 2.4 g/dL (3.9-5); Albumin/Globulin Ratio 0.8 %; Alkaline Phosphatase 162 units/L (35-129); Anion Gap 18 mmol/L; BUN/Creatinine Ratio 19; Blood Urea Nitrogen 17 mg/dL (7-17); Carbon Dioxide 22 mmol/L (22-30); Chloride 105.4 mmol/L (98-107); Glucose 75 mg/dL (65-100); Potassium 4.7 mmol/L (3.6-5.0); Sodium 141 mmol/L (137-145); Total Protein 5.4 g/dL (6.3-8.2)
[2017-07-21] MEDS: PERCOCET 5/325 PO PRN ×2 (07:57→12:08)
--- NOTE | 2017-07-21 07:57 | Progress Note ---
Assessment and Plan [facility]'s Recommendations: 1. BP meds to keep BP 120-160/80-105 2. Labs every 1-2 days to r/o HELLP (done 07/19/17, ordered 07/21/17). 3. Repeat Dopplers every 2 days (done 07/19/17, ordered 07/21/17). 4. Repeat EFW every 2 weeks.(Done 07/14/2017) 5. Continue prophylactic heparin. 6. Continue prednisone 5mg/day (was taking as outpatient). 7. Increase labetalol to 300mg BID - Patient Problems (1) 26 weeks gestation of Current Visit: Yes Status: Acute (2) Elevated blood pressure affecting in second trimester, antepartum Onset Date: ~07/17/17 Current Visit: Yes Status: Acute (3) Nonspecific elevation of levels of transaminase and lactic acid dehydrogenase [ldh] Current Visit: Yes Status: Resolved (4) Chronic ITP (idiopathic thrombocytopenic purpura) Onset Date: ~07/17/17 Current Visit: Yes Status: Chronic (5) History of pulmonary embolus (PE) Onset Date: ~07/17/17 Current Visit: Yes Status: Chronic (6) Migraine Current Visit: Yes Status: Chronic Qualifiers: Status migrainosus presence: without status migrainosus Intractability: not intractable (7) Lupus (systemic lupus erythematosus) Current Visit: Yes Status: Chronic Qualifiers: Systemic lupus erythematosus type: other Systemic lupus erythematosus organ involvement: glomerular disease Qualified Code(s): M32.14 - Glomerular disease in systemic lupus erythematosus Subjective - Subjective Date of service: 07/21/17 Principal diagnosis: IUP@26w1d wga, IUGR, Severe PreE, ITP, h/o PE, SLE, migraines Interval history: C/o MACKENZIE, similar to when she was admitted, MACKENZIE resolves with Percocet. Patient reports: new complaints (facial edema, discomfort in arms from heparin injections continues today), movement normal (decreased today), other ( denies MACKENZIE, blurred vision, chest pain today), no loss of fluid, no vaginal bleeding, no contractions Objective - Vital Signs Vital Signs: Vital Signs - 12hr 07/20/17 07/20/17 07/20/17 20:10 21:10 22:02 Temperature Pulse Rate 90 90 90 Respiratory Rate Blood Pressure 158/90 152/92 152/92 Blood Pressure [Left] O2 Sat by Pulse Oximetry 07/20/17 07/20/17 07/21/17 22:10 23:10 00:04 Temperature Pulse Rate 94 H 91 H 89 Respiratory Rate Blood Pressure 156/97 168/113 161/107 Blood Pressure [Left] O2 Sat by Pulse Oximetry 07/21/17 07/21/17 07/21/17 00:07 00:09 00:44 Temperature Pulse Rate 83 83 90 Respiratory Rate Blood Pressure 174/114 174/114 168/100 Blood Pressure [Left] O2 Sat by Pulse Oximetry 07/21/17 07/21/17 07/21/17 01:27 01:44 02:05 Temperature Pulse Rate 86 82 82 Respiratory Rate Blood Pressure 168/103 179/102 179/102 Blood Pressure [Left] O2 Sat by Pulse Oximetry 07/21/17 07/21/17 07/21/17 02:14 02:44 03:15 Temperature Pulse Rate 86 107 H 76 Respiratory Rate Blood Pressure 171/93 151/96 165/88 Blood Pressure [Left] O2 Sat by Pulse Oximetry 07/21/17 07/21/17 07/21/17 03:38 03:42 03:43 Temperature Pulse Rate 84 88 90 Respiratory Rate Blood Pressure 172/101 Blood Pressure [Left] O2 Sat by Pulse 99 100 Oximetry 07/21/17 07/21/17 07/21/17 04:14 04:44 05:14 Temperature Pulse Rate 100 H 96 H 105 H Respiratory Rate Blood Pressure 143/96 149/91 151/92 Blood Pressure [Left] O2 Sat by Pulse Oximetry 07/21/17 07/21/17 07/21/17 05:44 07:16 07:40 Temperature 99.5 F Pulse Rate 92 H 103 H 89 Respiratory 18 Rate Blood Pressure 153/94 135/87 Blood Pressure 136/83 [Left] O2 Sat by Pulse 98 Oximetry 07/21/17 07:44 Temperature Pulse Rate 88 Respiratory Rate Blood Pressure 136/83 Blood Pressure [Left] O2 Sat by Pulse 98 Oximetry - Exam Narrative Exam: see RN exam, I was present during exam Breasts: deferred FHR: category 2 (appropriate for GA) Uterine Contraction Monitor Mode: External Uterine Contraction Pattern: Absent Extremities: normal (LIZBETH hose present) - Labs Labs: Abnormal Labs 07/14/17 07/14/17 07/15/17 16:35 16:35 07:01 RBC Hgb Hct RDW 17.2 H Plt Count 112 L Chloride Carbon Dioxide BUN Creatinine 0.6 L Calcium Magnesium 8.20 H AST 180 H ALT 96 H Alkaline Phosphatase Lactate Dehydrogenase 717 H Total Protein Albumin Urine Creatinine Ur Total Protein 24 Hr Urine Total Protein 07/15/17 07/15/17 07/15/17 07:16 10:59 10:59 RBC Hgb Hct RDW 17.5 H Plt Count 128 L Chloride Carbon Dioxide BUN Creatinine Calcium Magnesium 7.80 H AST 88 H ALT 71 H Alkaline Phosphatase Lactate Dehydrogenase 486 H Total Protein Albumin Urine Creatinine Ur Total Protein 24 Hr Urine Total Protein 07/15/17 07/15/17 07/15/17 18:00 18:00 18:56 RBC Hgb Hct RDW Plt Count Chloride Carbon Dioxide BUN Creatinine Calcium Magnesium 4.80 H AST ALT Alkaline Phosphatase Lactate Dehydrogenase Total Protein Albumin Urine Creatinine 100.2 H Ur Total Protein 24 Hr 1551.00 H Urine Total Protein 141 H 07/16/17 07/16/17 07/17/17 06:05 06:05 06:40 RBC 3.30 L 3.30 L Hgb Hct RDW 17.0 H 17.4 H Plt Count Chloride Carbon Dioxide BUN Creatinine Calcium Magnesium AST 50 H ALT Alkaline Phosphatase Lactate Dehydrogenase 481 H Total Protein Albumin Urine Creatinine Ur Total Protein 24 Hr Urine Total Protein 07/17/17 07/19/17 07/19/17 06:40 07:14 07:14 RBC 2.94 L Hgb 9.5 L Hct 27.7 L RDW 17.6 H Plt Count 126 L Chloride 107.7 H 109.2 H Carbon Dioxide 20 L BUN 21 H Creatinine Calcium 7.3 L 8.2 L Magnesium AST ALT Alkaline Phosphatase 178 H 149 H Lactate Dehydrogenase Total Protein 5.4 L 5.2 L Albumin 2.4 L 2.3 L Urine Creatinine Ur Total Protein 24 Hr Urine Total Protein 07/21/17 07:16 RBC 3.02 L Hgb 9.7 L Hct 29.0 L RDW 18.0 H Plt Count 129 L Chloride Carbon Dioxide BUN Creatinine Calcium Magnesium AST ALT Alkaline Phosphatase Lactate Dehydrogenase Total Protein Albumin Urine Creatinine Ur Total Protein 24 Hr Urine Total Protein Laboratory Results - last 24 hr 07/21/17 07:16 WBC 9.3 RBC 3.02 L Hgb 9.7 L Hct 29.0 L MCV 96 MCH 32 MCHC 34 RDW 18.0 H Plt Count 129 L
[2017-07-21] MEDS: HEPARIN SUB-Q SCH ×2 (10:06→22:04)
[2017-07-21] MEDS: NORMODYNE PO SCH ×2 (10:08→21:37)
[2017-07-21] MEDS: PRENATAL VITAMIN PO SCH (10:09)
[2017-07-21] MEDS: DELTASONE PO SCH (10:09)
[2017-07-21] MEDS: ZOFRAN IV PRN ×3 (10:10→21:47)
--- NOTE | 2017-07-21 11:04 | Ultrasound Report ---
ULTRASOUND BIOPHYSICAL PROFILE: History: well being Technique: Transabdominal ultrasound with Doppler interrogation. 2 - breathing movements 2 - movements 2 - posture and tone 2 - Qualitative amniotic fluid volume 8 - TOTAL SCORE OF POSSIBLE 8 Heart Rate (bpm) 143
--- NOTE | 2017-07-21 11:06 | Ultrasound Report ---
OB ULTRASOUND History well being. Technique: Transabdominal ultrasound with Doppler interrogation. Gestation: Single Position: Breech Amniotic Fluid: Normal KASIE = 12.5 cm Placenta: Posterior, fundal Placental Grade: 1 Heart Rate: 143 BPM Cervical length: Not measured cm (Normal > 3 cm) BPD: 5.8 cm = 23 w 4 d HC: 21.6 cm = 23 w 5 d AC: 17.8 cm = 22 w 5 d FL: 4.3 cm = 24 w 2 d HC/AC Ratio: 1.21 Cephalic Index: 76.5 Estimated Weight: 594 grams Clinical age = 26 w 1 d EDC: 10/26/17 US Gest. Age = 23 w 4 d EDC: 11/13/17 IMPRESSION: Viable, single intrauterine as described.
--- NOTE | 2017-07-21 11:23 | Progress Note ---
Assessment and Plan Assessment: 1. IUP 26w1d 2. SLE 3. suspected severe preeclampsia (severe HTN, increase in proteinuria) 4. IUGR with abnormal Dopplers 5. ITP 6. h/o PE [facility]'s Recommendations: 1. BP meds to keep BP 120-160/80-105. Labetalol 300mg po BID 2. Labs every 1-2 days to r/o HELLP ( ordered 07/21/17). 3. Repeat Dopplers every 2 days (ordered 07/21/17). 4. Repeat EFW every 2 weeks. 5. Continue prophylactic heparin and LIZBETH hose. 6. Continue prednisone 5mg/day (was taking as outpatient). 7. Continue expectant management Subjective - Subjective Principal diagnosis: IUP@26w1d wga, IUGR, Severe PreE, ITP, h/o PE, SLE, migraines Interval history: Patient reports a headache this morning. She denies visual changes, chest pain, SOB or RUQ pain. Good movement. Patient reports: new complaints (facial edema, discomfort in arms from heparin injections continues today), movement normal (decreased today), other ( denies MACKENZIE, blurred vision, chest pain today), no loss of fluid, no vaginal bleeding, no contractions Objective - Vital Signs Vital Signs: Vital Signs - 12hr 07/21/17 07/21/17 07/21/17 00:04 00:07 00:09 Temperature Pulse Rate 89 83 83 Respiratory Rate Blood Pressure 161/107 174/114 174/114 Blood Pressure [Left] O2 Sat by Pulse Oximetry 07/21/17 07/21/17 07/21/17 00:44 01:27 01:44 Temperature Pulse Rate 90 86 82 Respiratory Rate Blood Pressure 168/100 168/103 179/102 Blood Pressure [Left] O2 Sat by Pulse Oximetry 07/21/17 07/21/17 07/21/17 02:05 02:14 02:44 Temperature Pulse Rate 82 86 107 H Respiratory Rate Blood Pressure 179/102 171/93 151/96 Blood Pressure [Left] O2 Sat by Pulse Oximetry 07/21/17 07/21/17 07/21/17 03:15 03:38 03:42 Temperature Pulse Rate 76 84 88 Respiratory Rate Blood Pressure 165/88 172/101 Blood Pressure [Left] O2 Sat by Pulse 99 Oximetry 07/21/17 07/21/17 07/21/17 03:43 04:14 04:44 Temperature Pulse Rate 90 100 H 96 H Respiratory Rate Blood Pressure 143/96 149/91 Blood Pressure [Left] O2 Sat by Pulse 100 Oximetry 07/21/17 07/21/17 07/21/17 05:14 05:44 07:16 Temperature Pulse Rate 105 H 92 H 103 H Respiratory Rate Blood Pressure 151/92 153/94 135/87 Blood Pressure [Left] O2 Sat by Pulse Oximetry 07/21/17 07/21/17 07/21/17 07:40 07:44 07:57 Temperature 99.5 F Pulse Rate 89 88 Respiratory 18 18 Rate Blood Pressure 136/83 Blood Pressure 136/83 [Left] O2 Sat by Pulse 98 98 Oximetry 07/21/17 07/21/17 07/21/17 08:15 08:44 09:44 Temperature Pulse Rate 84 84 83 Respiratory Rate Blood Pressure 140/78 143/80 164/88 Blood Pressure [Left] O2 Sat by Pulse Oximetry 07/21/17 07/21/17 07/21/17 10:08 10:14 10:34 Temperature Pulse Rate 83 85 82 Respiratory Rate Blood Pressure 164/88 142/77 132/77 Blood Pressure [Left] O2 Sat by Pulse Oximetry 07/21/17 11:04 Temperature Pulse Rate 81 Respiratory Rate Blood Pressure 119/67 Blood Pressure [Left] O2 Sat by Pulse Oximetry - Exam Abdomen: Present: normal appearance, soft - Labs Labs: Abnormal Labs 07/14/17 07/14/17 07/15/17 16:35 16:35 07:01 RBC Hgb Hct RDW 17.2 H Plt Count 112 L Chloride Carbon Dioxide BUN Creatinine 0.6 L Calcium Magnesium 8.20 H AST 180 H ALT 96 H Alkaline Phosphatase Lactate Dehydrogenase 717 H Total Protein Albumin Urine Creatinine Ur Total Protein 24 Hr Urine Total Protein 07/15/17 07/15/17 07/15/17 07:16 10:59 10:59 RBC Hgb Hct RDW 17.5 H Plt Count 128 L Chloride Carbon Dioxide BUN Creatinine Calcium Magnesium 7.80 H AST 88 H ALT 71 H Alkaline Phosphatase Lactate Dehydrogenase 486 H Total Protein Albumin Urine Creatinine Ur Total Protein 24 Hr Urine Total Protein 07/15/17 07/15/17 07/15/17 18:00 18:00 18:56 RBC Hgb Hct RDW Plt Count Chloride Carbon Dioxide BUN Creatinine Calcium Magnesium 4.80 H AST ALT Alkaline Phosphatase Lactate Dehydrogenase Total Protein Albumin Urine Creatinine 100.2 H Ur Total Protein 24 Hr 1551.00 H Urine Total Protein 141 H 07/16/17 07/16/17 07/17/17 06:05 06:05 06:40 RBC 3.30 L 3.30 L Hgb Hct RDW 17.0 H 17.4 H Plt Count Chloride Carbon Dioxide BUN Creatinine Calcium Magnesium AST 50 H ALT Alkaline Phosphatase Lactate Dehydrogenase 481 H Total Protein Albumin Urine Creatinine Ur Total Protein 24 Hr Urine Total Protein 07/17/17 07/19/17 07/19/17 06:40 07:14 07:14 RBC 2.94 L Hgb 9.5 L Hct 27.7 L RDW 17.6 H Plt Count 126 L Chloride 107.7 H 109.2 H Carbon Dioxide 20 L BUN 21 H Creatinine Calcium 7.3 L 8.2 L Magnesium AST ALT Alkaline Phosphatase 178 H 149 H Lactate Dehydrogenase Total Protein 5.4 L 5.2 L Albumin 2.4 L 2.3 L Urine Creatinine Ur Total Protein 24 Hr Urine Total Protein 07/21/17 07/21/17 07:16 07:16 RBC 3.02 L Hgb 9.7 L Hct 29.0 L RDW 18.0 H Plt Count 129 L Chloride Carbon Dioxide BUN Creatinine Calcium 8.0 L Magnesium AST ALT Alkaline Phosphatase 162 H Lactate Dehydrogenase Total Protein 5.4 L Albumin 2.4 L Urine Creatinine Ur Total Protein 24 Hr Urine Total Protein Laboratory Results - last 24 hr 07/21/17 07/21/17 07:16 07:16 WBC 9.3 RBC 3.02 L Hgb 9.7 L Hct 29.0 L MCV 96 MCH 32 MCHC 34 RDW 18.0 H Plt Count 129 L Sodium 141 Potassium 4.7 Chloride 105.4 Carbon Dioxide 22 Anion Gap 18 BUN 17 Creatinine 0.9 Estimated GFR > 60 BUN/Creatinine Ratio 19 Glucose 75 Calcium 8.0 L Total Bilirubin 0.20 AST 33 ALT 22 Alkaline Phosphatase 162 H Total Protein 5.4 L Albumin 2.4 L Albumin/Globulin Ratio 0.8
--- NOTE | 2017-07-21 16:59 | Event Note ---
Date: 07/21/17 (doppler studies) recent doppler studies reviewed - persistant absent end diastolic flow. fht reviewed with decreased/minimal variability with 3 variables noted in last 45 minutes last 50-180 seconds. EFW on 07/14 609gm and repeated today 594g. KASIE 12.5. Dr. Barbara rocha, Dr. Henderson (o/c for [facility]) paged via answering service. Awaiting return call.
--- NOTE | 2017-07-21 17:23 | Event Note ---
Date: 07/21/17 Dr. Henderson updated on recent doppler studies and tracing; he recommends repeating doppler studies tomorrow. He does not recommend delivery at this time unless the tracing worsens or the doppler studies become persistent reversed end diastolic flow. Dr. Jimenez informed.
[2017-07-22] MEDS: PERCOCET 5/325 PO PRN (04:58)
[2017-07-22] MEDS: HEPARIN SUB-Q SCH ×2 (10:22→22:53)
[2017-07-22] MEDS: NORMODYNE PO SCH ×2 (10:23→20:46)
[2017-07-22] MEDS: DELTASONE PO SCH (10:23)
[2017-07-22] MEDS: PRENATAL VITAMIN PO SCH ×2 (10:23→10:27)
--- NOTE | 2017-07-22 10:51 | Ultrasound Report ---
UMBILICAL CORD DOPPLER: 07/21/17 CLINICAL: IUGR. 26 weeks, 2 days FINDINGS/IMPRESSION:: Abnormal cord Doppler with no end-diastolic flow. PI (Pulsitivity Index) 1. Free loop PI: 2.0 2. Free loop PI: 2.0 3. Free loop PI: 2.0 PI Average: 2.0 Heart Rate 138 BPM
--- NOTE | 2017-07-22 10:52 | Ultrasound Report ---
UMBILICAL CORD DOPPLER: 07/22/17 CLINICAL: well being 26 weeks, 3 days FINDINGS/IMPRESSION: Abnormal cord Doppler with no end-diastolic flow. PI (Pulsitivity Index) 1. Free loop PI: 2.0 2. Free loop PI: 2.0 3. Free loop PI: 2.0 PI Average: 2.0 Heart Rate 138 BPM
--- NOTE | 2017-07-22 12:50 | Progress Note ---
Assessment and Plan 27 yo at 26 wk 2 d with IUGR and severe PreE with SLE, Lupus flare, ITP, hx PE Now on Hosp day #8. Pt looks relatively good considering the clinical scenario Currently no c/o and says fetus is active, tracing is acceptable for 26 wk fetus with occ variables, not reactive at present but has been, Has had intermittent MACKENZIE, none now; also no RUQ pain or contractions. Breech presentation--will require c/s for delivery [facility]'s Recommendations: 1. BP meds to keep BP 120-160/80-105 -now on Labetolol 200 bid 2. Labs every 1-2 days to r/o HELLP (done 07/21/17, ordered for 07/23/17). 3. Repeat Dopplers every 2 days (done 07/21/17 and 07/22/17, ordered for 07/24/17 , per Dr Stearns instructions). 4. Repeat EFW every 2 weeks.(Done 07/14/2017) 5. Continue prophylactic heparin. 6. Continue prednisone 5mg/day (was taking as outpatient). 7. Continuous monitoring - Patient Problems (1) Severe preeclampsia Onset Date: ~07/14/17 Current Visit: Yes Status: Acute Qualifiers: Trimester: second trimester Qualified Code(s): O14.12 - Severe pre- eclampsia, second trimester Plan to address problem: continue BP meds and monitoring (2) IUGR (intrauterine growth restriction) Current Visit: Yes Status: Acute Plan to address problem: repeat dopplers on 07/24/17 (3) Chronic ITP (idiopathic thrombocytopenic purpura) Onset Date: ~07/17/17 Current Visit: Yes Status: Chronic Plan to address problem: repeat labs tomorrow (4) History of pulmonary embolus (PE) Onset Date: ~07/17/17 Current Visit: Yes Status: Chronic Plan to address problem: on heparin SQ (5) Lupus (systemic lupus erythematosus) Current Visit: Yes Status: Chronic Qualifiers: Systemic lupus erythematosus type: other Systemic lupus erythematosus organ involvement: glomerular disease Qualified Code(s): M32.14 - Glomerular disease in systemic lupus erythematosus Plan to address problem: on Prednisone (6) 26 weeks gestation of Current Visit: Yes Status: Acute (7) Migraine Current Visit: Yes Status: Chronic Qualifiers: Status migrainosus presence: without status migrainosus Intractability: not intractable Subjective - Subjective Date of service: 07/22/17 Principal diagnosis: IUP@26w2d with IUGR, Severe PreE, ITP, h/o PE, SLE, migraines Interval history: Todays doppler's show no end diastolic flow. I discussed this with Dr Stearns who said as long as fetus does not have reversed end diastolic flow, and clinical status remains stable, then delivery is not indicated. She recommended reordering dopplers on 07/24/2017. All else appears stable. BP unchanged, has had one dose Apresoline last night at 2300, and is on Labetolol tracing is acceptable, Cat 2, not reactive at present LFT have normalized and platelets have improved Patient reports: movement normal (active today), other (denies MACKENZIE, blurred vision, chest pain today, c/o mild edema in legs), no loss of fluid, no vaginal bleeding, no contractions Objective - Vital Signs Vital Signs: Vital Signs - 12hr 07/22/17 07/22/17 07/22/17 01:05 01:34 02:05 Temperature Pulse Rate 87 88 90 Respiratory Rate Blood Pressure 118/71 122/69 134/81 Blood Pressure [Left] 07/22/17 07/22/17 07/22/17 02:34 03:04 03:34 Temperature Pulse Rate 80 84 93 H Respiratory Rate Blood Pressure 121/67 128/74 141/76 Blood Pressure [Left] 07/22/17 07/22/17 07/22/17 04:04 04:34 05:04 Temperature Pulse Rate 82 84 80 Respiratory Rate Blood Pressure 135/73 142/89 141/86 Blood Pressure [Left] 07/22/17 07/22/17 07/22/17 05:34 06:04 06:35 Temperature Pulse Rate 84 77 71 Respiratory Rate Blood Pressure 124/74 139/76 139/77 Blood Pressure [Left] 07/22/17 07/22/17 07/22/17 07:06 07:35 08:05 Temperature Pulse Rate 76 77 78 Respiratory Rate Blood Pressure 137/80 152/82 148/82 Blood Pressure [Left] 07/22/17 07/22/17 07/22/17 09:23 09:24 10:23 Temperature 98.4 F Pulse Rate 92 H 92 H 91 H Respiratory 14 Rate Blood Pressure 136/85 133/97 Blood Pressure 136/85 [Left] 07/22/17 07/22/17 10:28 11:07 Temperature Pulse Rate 91 H 80 Respiratory Rate Blood Pressure 133/97 157/95 Blood Pressure [Left] - Exam Breasts: deferred Cardiovascular: Regular rate, Normal S2, No murmurs Lungs: Clear to auscultation Abdomen: Present: normal appearance, soft, normal bowel sounds. Absent: tenderness (no RUQ tenderness at all) Uterus: Present: normal, fundal height above umbilicus. Absent: tenderness FHR: category 2 (non-reactive tracing at present but has been reactive) Uterine Contraction Pattern: Absent Deep Tendon Reflex Grade: Normal +2 - Labs Labs: Abnormal Labs 07/14/17 07/14/17 07/15/17 16:35 16:35 07:01 RBC Hgb Hct RDW 17.2 H Plt Count 112 L Chloride Carbon Dioxide BUN Creatinine 0.6 L Calcium Magnesium 8.20 H AST 180 H ALT 96 H Alkaline Phosphatase Lactate Dehydrogenase 717 H Total Protein Albumin Urine Creatinine Ur Total Protein 24 Hr Urine Total Protein 07/15/17 07/15/17 07/15/17 07:16 10:59 10:59 RBC Hgb Hct RDW 17.5 H Plt Count 128 L Chloride Carbon Dioxide BUN Creatinine Calcium Magnesium 7.80 H AST 88 H ALT 71 H Alkaline Phosphatase Lactate Dehydrogenase 486 H Total Protein Albumin Urine Creatinine Ur Total Protein 24 Hr Urine Total Protein 07/15/17 07/15/17 07/15/17 18:00 18:00 18:56 RBC Hgb Hct RDW Plt Count Chloride Carbon Dioxide BUN Creatinine Calcium Magnesium 4.80 H AST ALT Alkaline Phosphatase Lactate Dehydrogenase Total Protein Albumin Urine Creatinine 100.2 H Ur Total Protein 24 Hr 1551.00 H Urine Total Protein 141 H 07/16/17 07/16/17 07/17/17 06:05 06:05 06:40 RBC 3.30 L 3.30 L Hgb Hct RDW 17.0 H 17.4 H Plt Count Chloride Carbon Dioxide BUN Creatinine Calcium Magnesium AST 50 H ALT Alkaline Phosphatase Lactate Dehydrogenase 481 H Total Protein Albumin Urine Creatinine Ur Total Protein 24 Hr Urine Total Protein 07/17/17 07/19/17 07/19/17 06:40 07:14 07:14 RBC 2.94 L Hgb 9.5 L Hct 27.7 L RDW 17.6 H Plt Count 126 L Chloride 107.7 H 109.2 H Carbon Dioxide 20 L BUN 21 H Creatinine Calcium 7.3 L 8.2 L Magnesium AST ALT Alkaline Phosphatase 178 H 149 H Lactate Dehydrogenase Total Protein 5.4 L 5.2 L Albumin 2.4 L 2.3 L Urine Creatinine Ur Total Protein 24 Hr Urine Total Protein 07/21/17 07/21/17 07:16 07:16 RBC 3.02 L Hgb 9.7 L Hct 29.0 L RDW 18.0 H Plt Count 129 L Chloride Carbon Dioxide BUN Creatinine Calcium 8.0 L Magnesium AST ALT Alkaline Phosphatase 162 H Lactate Dehydrogenase Total Protein 5.4 L Albumin 2.4 L Urine Creatinine Ur Total Protein 24 Hr Urine Total Protein - Results US- obstetric: report reviewed (no end diastolic flow today)
[2017-07-22] MEDS: APRESOLINE IV PRN (18:21)
[2017-07-23] MEDS: APRESOLINE IV PRN (01:26)
[2017-07-23] MEDS ORDERED: MAGNESIUM SULFATE IV ONE (02:42)
[2017-07-23] MEDS ORDERED: MAGNESIUM SULFATE 4GM/100ML 4 GM/100 ML BAG IV ONE (02:44)
[2017-07-23] MEDS ORDERED: PEPCID IV ONE (02:45)
[2017-07-23] MEDS ORDERED: BICITRA PO ONE (02:45)
[2017-07-23] MEDS ORDERED: REGLAN IV ONE (02:45)
[2017-07-23] MEDS ORDERED: ANCEF/STERILE WATER 2 GM/20 ML 2 GM/20 ML SYRINGE IV NR (03:00)
[2017-07-23] MEDS ORDERED: LACTATED RINGERS 1,000 ML IV SCH (03:00)
[2017-07-23] MEDS ORDERED: MAGNESIUM SULFATE 40GM/1000ML 40 GM/1,000 ML BAG IV SCH (03:00)
[2017-07-23] MEDS ORDERED: PITOCin/NS 20 UNIT/1000ML DRIP 20 UNITS/1,000 ML BAG IV SCH ×2 (03:00→08:00)
--- NOTE | 2017-07-23 03:04 | Event Note ---
Date: 07/23/17 07/22/2017 0255 Called by nurse for repetitive deep variables of varying waveforms, and I came to bedside to review the strip which has now improved somewhat, but none the less, this run of variables in the present clinical scenario is a change in status and an indication for urgent delivery. I have previously discussed this scenario with the patient and she understands and agrees. Will repeat labs and give 4 gm Mag load for neuroprotection of the fetus and for maternal treatment. The patient does not appear to be in labor. Will get u/s for presentation.
[2017-07-23] MEDS ORDERED: INFASURF ONE (03:06)
[2017-07-23] MEDS: LACTATED RINGERS 1,000 ML IV SCH ×2 (03:12→21:55)
--- NOTE | 2017-07-23 03:22 | Ultrasound Report ---
FINAL REPORT EXAM: US OB LIMITED HISTORY: presentation TECHNIQUE: A limited OB sonogram was obtained of the abdomen transabdominal and for evaluation of presentation. FINDINGS: There is a single fetus in breech presentation. The placenta appears fundal and is grade 0. The heart rate is 154 BPM. A survey of organs was not obtained. IMPRESSION: Breech presentation. heart rate is 154 BPM.
[2017-07-23 03:52] LABS: Hematocrit 29.9 % (30.3-42.9); Mean Corpuscular HGB Conc 33 % (30-34); Mean Corpuscular Hemoglobin 32 pg (28-32); Mean Corpuscular Volume 96 fl (79-97); Platelet Count 128 K/mm3 (140-440); Red Blood Count 3.11 M/mm3 (3.65-5.03); Red Cell Distribution Width 17.7 % (13.2-15.2)
[2017-07-23 04:12] LABS: Alanine Aminotransferase 26 units/L (7-56); Albumin 2.4 g/dL (3.9-5); Albumin/Globulin Ratio 0.8 %; Alkaline Phosphatase 178 units/L (35-129); Anion Gap 17 mmol/L; BUN/Creatinine Ratio 23; Bilirubin,Total < 0.20 mg/dL (0.1-1.2); Blood Urea Nitrogen 18 mg/dL (7-17); Carbon Dioxide 20 mmol/L (22-30); Chloride 103.9 mmol/L (98-107); Glucose 80 mg/dL (65-100); Potassium 4.5 mmol/L (3.6-5.0); Sodium 136 mmol/L (137-145); Total Protein 5.4 g/dL (6.3-8.2)
--- NOTE | 2017-07-23 04:36 | Anesthesia Consultation ---
Anesthesia Consult and Med Hx Date of service: 07/23/17 - Airway Anesthetic Teeth Evaluation: Good ROM Head & Neck: Adequate Mental/Hyoid Distance: Adequate Mallampati Class: Class II Intubation Access Assessment: Probably Good - Pulmonary Exam CTA: Yes - Cardiac Exam Cardiac Exam: RRR - Pre-Operative Health Status ASA Pre-Surgery Classification: ASA3, Emergency Proposed Anesthetic Plan: Spinal - Pulmonary Hx Asthma: No COPD: No Hx Pneumonia: No - Cardiovascular System Hx Hypertension: No - Central Nervous System Hx Seizures: No Hx Psychiatric Problems: No - Endocrine Hx Renal Disease: No Hx End Stage Renal Disease: No Hx Hypothyroidism: No Hx Hyperthyroidism: No - Hematic Hx Anemia: No Hx Sickle Cell Disease: No - Other Systems Hx Alcohol Use: No
--- NOTE | 2017-07-23 04:37 | Anesthesia Day of Surgery ---
Anesthesia Day of Surgery - Day of Surgery Patient Examined: Yes Patient H&P Reviewed: Yes Patient is NPO: No (FSP. Surgeon is aware of NPO status and feels Pt cant wait.)
[2017-07-23] MEDS ORDERED: MORPHINE ONE (04:45)
[2017-07-23] MEDS ORDERED: WATER FOR IRRIG STERILE IR ONE (04:54)
[2017-07-23] MEDS ORDERED: NACL 0.9% IR ONE (04:54)
[2017-07-23] MEDS ORDERED: ZOFRAN ONE (05:40)
[2017-07-23] MEDS ORDERED: VERSED ONE ×2 (06:26→06:46)
--- NOTE | 2017-07-23 06:48 | Operative Report ---
Operative Report Operative Report: Date of Procedure: 07/23/2017 Procedure name(s): Primary emergent classical section Pre-operative diagnosis: 27 yo at 26 wk 3 d with IUGR and severe PreE with SLE, Lupus flare, ITP, hx PE x 2, delivered for deteriorating status with multiple severe variable decelerations and known absent end diastolic flow, breech presentation. Patient is on prednisone 5 mg and prophylactic Heparin and the fetus and mom received Mag for Neuro protection and severe Pre-eclampsia Post-operative diagnosis: Same plus fetus completely in the fundus with completely undeveloped lower uterine segment incision begun in the mid uterine uterine segment and extended over the fundus to facilitate delivery. Surgeon: Chelsea Perry M.D. Principal Statistical Programmer: GERSON Anesthesia: Spinal EBL: 800 mL Infant: 1 lb. 4 oz.(560 g) female, Apgars of 8 and 9 Time of : 0535 Findings Relatively normal tubes, uterus and ovaries. The fetus is completely in the fundus and not in the lower uterine segment at all. Breech presentation Procedure The patient was taken to the operating room and after adequate anesthesia was obtained she was placed in the supine position in left lateral tilt. Sequential compression devices were in place on both lower extremities and a Gross catheter was placed in a sterile fashion. The abdomen was then prepped and draped in the usual fashion. Surgical time-out was done with the entire OR team attentive. A Pfannenstiel incision was made with a scalpel and sharp dissection was carried down through all layers of the abdomen in the usual fashion. The abdomen was entered bluntly and the lower uterine segment was identified. The uterus had a globular shape and the lower uterine segment below the round ligaments was completely undeveloped. The fetus could be palpated in the fundus. The scalpel was used to incise the uterus in a vertical fashion and this incision was extended sharply with the scalpel and the membranes were ruptured. My hand was inserted into the uterus. The vertex was grasped and delivered easily.. The cord was clamped and cut and a viable was suctioned and handed off to the attending NICU staff and was a 1 lb. 4 oz (560 g ) female, Apgars of 8 and 9. The placenta was removed manually with some difficulty as it was densely adherent, the interior of the uterus was cleansed with moist lap packs and the uterus was exteriorized. The uterine incision was closed with a triple imbricating layer of 0 Vicryl suture in a running fashion. Hemostasis was adequate and the uterus was returned to the abdomen. Uterus was well contracted. The abdomen was then closed in layers: the rectus muscles were closed with several [id number] sutures of 0 Vicryl, the fascia was closed with running sutures of 0 Vicryl starting at both side corners in turn and tied in the middle. The subcutaneous tissue was irrigated and the skin was closed with surgical raf. Sponge and Lap count correct X 3, estimated blood loss was 800 mL and the Gross was draining clear urine. The patient tolerated the procedure well and was discharged to PACU in good condition.
[2017-07-23] MEDS ORDERED: NARCAN 0.4 MG/1 ML IV PRN ×2 (06:59→07:06)
[2017-07-23] MEDS ORDERED: ZOFRAN IV PRN (06:59)
[2017-07-23] MEDS ORDERED: MORPHINE IV PRN (06:59)
--- NOTE | 2017-07-23 06:59 | Post Anesthesia Evaluation ---
- Post Anesthesia Evaluation Patient Participated: Yes Airway Patent: Yes Stable Respiratory Function: Yes Temp > 96.8F: Yes Pain Manageable: Yes Adequeate Hydration: Yes Anesthesia Complications: No Block Receding Appropriately: Yes
[2017-07-23] MEDS ORDERED: TUCKS PAD TP PRN (07:06)
[2017-07-23] MEDS ORDERED: LANSINOH TP PRN (07:06)
[2017-07-23] MEDS ORDERED: ANCEF/NS 1 GM/50 ML 1 GM/50 ML BAG IV SCH (08:00)
[2017-07-23] MEDS ORDERED: SODIUM CHLORIDE FLUSH SYRINGE 10 ML IV NR (08:00)
[2017-07-23] MEDS ORDERED: D5LR 1,000 ML IV SCH (08:00)
[2017-07-23] MEDS: BENADRYL PO PRN ×2 (10:10→18:00)
[2017-07-23] MEDS: LOVENOX SUB-Q SCH (10:59)
[2017-07-23 13:11] LABS: Hematocrit 26.6 % (30.3-42.9); Hemoglobin 8.8 gm/dl (10.1-14.3); Mean Corpuscular HGB Conc 33 % (30-34); Mean Corpuscular Hemoglobin 32 pg (28-32); Mean Corpuscular Volume 97 fl (79-97); Platelet Count 133 K/mm3 (140-440); Red Blood Count 2.75 M/mm3 (3.65-5.03); Red Cell Distribution Width 18.2 % (13.2-15.2); White Blood Count 15.7 K/mm3 (4.5-11.0)
[2017-07-23 13:28] LABS: Alanine Aminotransferase 30 units/L (7-56); Albumin 2.2 g/dL (3.9-5); Albumin/Globulin Ratio 0.7 %; Alkaline Phosphatase 156 units/L (35-129); Anion Gap 17 mmol/L; BUN/Creatinine Ratio 22; Bilirubin,Total < 0.20 mg/dL (0.1-1.2); Blood Urea Nitrogen 20 mg/dL (7-17); Calcium 7.3 mg/dL (8.4-10.2); Carbon Dioxide 21 mmol/L (22-30); Chloride 101.7 mmol/L (98-107); Glucose 100 mg/dL (65-100); Potassium 5.7 mmol/L (3.6-5.0); Sodium 134 mmol/L (137-145); Total Protein 5.2 g/dL (6.3-8.2)
[2017-07-23] MEDS: ANCEF/NS 1 GM/50 ML 1 GM/50 ML BAG IV SCH ×2 (13:46→21:54)
[2017-07-23] MEDS: DELTASONE PO SCH (13:51)
[2017-07-23] MEDS: NORMODYNE PO SCH ×2 (14:05→23:18)
[2017-07-23] MEDS: MORPHINE IV PRN (18:20)
[2017-07-23] MEDS: PERCOCET 5/325 PO PRN (20:52)
[2017-07-24] MEDS: PERCOCET 5/325 PO PRN ×5 (03:55→22:57)
--- NOTE | 2017-07-24 06:37 | Progress Note ---
Assessment and Plan 27yo Day #1 s/p section. BP 130-120/80 FF below umb Lochia small Dressing D&I H&H 04/08 drop r/t blood loss from surgery Pt w/o complaint Stable s /p section. MGSO4 d/c this AM. P: continue POC and pathway as ordered. Advance diet and activity as tolerated. Will D/C cao and remove bandage this AM - Patient Problems (1) History of pulmonary embolus (PE) Onset Date: ~07/17/17 Current Visit: Yes Status: Chronic Plan to address problem: Lovenox (2) Elevated blood pressure affecting in second trimester, antepartum Onset Date: ~07/17/17 Current Visit: Yes Status: Acute Plan to address problem: Labetalol 300mg po BID (3) Lupus (systemic lupus erythematosus) Onset Date: ~07/17/17 Current Visit: Yes Status: Chronic Qualifiers: Systemic lupus erythematosus type: other Systemic lupus erythematosus organ involvement: glomerular disease Qualified Code(s): M32.14 - Glomerular disease in systemic lupus erythematosus Plan to address problem: Prednisone po continued Subjective - Subjective Date of service: 07/24/17 (pt A&O X 3 No voiced c/o) Principal diagnosis: Day #1 s/p Primary Sec., Severe PreE, ITP, h/o PE , SLE, migraines Patient reports: voiding normally (clear yellow urine draining) [place]: in NICU Objective - Vital Signs Latest vital signs: Vital Signs Temp Pulse Resp BP BP BP Pulse Ox 07/24/17 04:25 98.4 F 98 H 18 126/81 100 07/24/17 02:35 96 H 18 131/86 97 07/24/17 00:30 98.7 F 85 18 134/88 97 07/23/17 23:18 82 117/78 07/23/17 22:10 82 18 117/78 97 07/23/17 20:00 98.9 F 85 18 136/92 98 07/23/17 18:20 20 07/23/17 16:47 98.5 F 104 H 18 115/68 97 07/23/17 16:38 98.1 F 18 117/76 07/23/17 14:38 97.6 F 66 18 130/79 130/79 99 07/23/17 14:05 73 107/69 07/23/17 11:41 97.5 F L 71 18 107/69 107/69 96 07/23/17 08:35 97.8 F 74 18 129/81 07/23/17 08:00 78 11 L 118/73 96 07/23/17 07:54 98.4 F 07/23/17 07:50 77 12 111/69 95 07/23/17 07:40 73 12 108/69 95 07/23/17 07:30 91 H 15 121/79 95 07/23/17 07:20 76 22 111/68 95 07/23/17 07:10 23 112/69 95 07/23/17 07:00 91 H 31 H 118/76 95 07/23/17 06:56 27 H 07/23/17 06:54 99.0 F 90 20 112/71 96 Intake and Output 07/23/17 07/23/17 07/24/17 14:59 22:59 06:59 Intake Total 1150 Output Total 225 1000 1800 Balance 925 -1000 -1800 Intake: IV 1150 ANCEF/NS 1 GM/50 ML 1 gm 50 In 50 ml @ 100 mls/hr IV Q8H GREGORY Rx#:[id number] Lactated Ringers 1,000 ml 1000 @ 125 mls/hr IV DIRECT GREGORY Rx#:[id number] Output: Urine 225 1000 1800 Indwelling Catheter 125 1000 1800 Uretheral (Coa) 50 Other: Intake, Other Source Saline Solution Total, Output Amount 125 1000 800 # Voids Void 1 - Exam Breasts: Present: normal Cardiovascular: Present: Regular rate Lungs: Present: Clear to auscultation (encouraged to use IS frequently) Abdomen: Present: normal appearance Uterus: Present: normal Extremities: Present: normal Deep Tendon Reflex Grade: Normal +2 Incision: Present: normal, dry, intact, dressed (to be removed this AM) - Labs Labs: Abnormal lab results 07/23/17 07/23/17 07/23/17 Range/Units 12:51 12:51 18:08 WBC 15.7 H (4.5-11.0) K/mm3 RBC 2.75 L (3.65-5.03) M/mm3 Hgb 8.8 L (10.1-14.3) gm/dl Hct 26.6 L (30.3-42.9) % RDW 18.2 H (13.2-15.2) % Plt Count 133 L (140-440) K/mm3 Sodium 134 L (137-145) mmol/L Potassium 5.7 H D (3.6-5.0) mmol/L Carbon Dioxide 21 L (22-30) mmol/L BUN 20 H (7-17) mg/dL Calcium 7.3 L (8.4-10.2) mg/dL Magnesium 6.50 H 6.60 H (1.7-2.3) mg/dL AST 51 H (5-40) units/L Alkaline Phosphatase 156 H (35-129) units/L Total Protein 5.2 L (6.3-8.2) g/dL Albumin 2.2 L (3.9-5) g/dL 07/24/17 Range/Units 00:59 WBC (4.5-11.0) K/mm3 RBC (3.65-5.03) M/mm3 Hgb (10.1-14.3) gm/dl Hct (30.3-42.9) % RDW (13.2-15.2) % Plt Count (140-440) K/mm3 Sodium (137-145) mmol/L Potassium (3.6-5.0) mmol/L Carbon Dioxide (22-30) mmol/L BUN (7-17) mg/dL Calcium (8.4-10.2) mg/dL Magnesium 6.20 H (1.7-2.3) mg/dL AST (5-40) units/L Alkaline Phosphatase (35-129) units/L Total Protein (6.3-8.2) g/dL Albumin (3.9-5) g/dL
[2017-07-24] MEDS ORDERED: BOOSTRIX IM ONE (07:09)
[2017-07-24] MEDS: DELTASONE PO SCH (09:36)
[2017-07-24] MEDS: LOVENOX SUB-Q SCH (09:37)
[2017-07-24] MEDS: NORMODYNE PO SCH ×2 (09:37→22:58)
--- NOTE | 2017-07-24 19:30 | History and Physical Report ---
History of Present Illness Date of admission: 07/14/17 16:15 Chief complaint: preeclampsia History of present illness: 27 YO Female with SLE, Not taking outpatient medication as per her private Select Banker,BILLY, admitted for severe preeclampsia, S/P emergent delivery via c section. Consult placed by Dr. Noble for SLE Flare. Pt seen and evaluated. Pt denes fever, chills, joint pain, skin rash, fatigue, weakness, malaise. Pt states that she was taken off all medication by her leather cleaner. Pt resting comfortable in bed and in no acute distress. Past History Past Medical History: pulmonary embolism, other (lupus, ITP, Migraine MACKENZIE) Past Surgical History: , Other (bone marrow biopsy) Social history: single. denies: smoking, alcohol abuse, prescription drug abuse Family history: CAD Medications and Allergies Allergies Allergy/AdvReac Type Severity Reaction Status Date / Time No Known Allergies Allergy Unverified 07/14/17 16:45 Home Medications Medication Instructions Recorded Confirmed Last Taken Type No Known Home Medications [No 07/15/17 07/15/17 Unknown History Reported Home Medications] Active Meds: Active Medications Diphenhydramine HCl (Benadryl) 25 mg PO Q6H PRN PRN Reason: Itching Last Admin: 07/23/17 18:00 Dose: 25 mg Enoxaparin Sodium (Lovenox) 40 mg SUB-Q DAILY GREGORY Last Admin: 07/24/17 09:37 Dose: 40 mg Hydralazine HCl (Apresoline) 5 mg IV Q30MIN PRN PRN Reason: HTN SYS BP>=165 DULCE>=105 Last Admin: 07/23/17 01:26 Dose: 5 mg Lactated Ringer's (Lactated Ringers) 1,000 mls @ 125 mls/hr IV DIRECT GREGORY Last Admin: 07/23/17 21:55 Dose: 125 mls/hr Magnesium Sulfate (Magnesium Sulfate 40gm/1000ml) 40 gm in 1,000 mls @ 25 mls/ hr IV DIRECT GREGORY PRN Reason: 1 GM/HR Last Admin: 07/23/17 07:42 Dose: 2 gm/hr, 50 mls/hr Dextrose/Lactated Ringer's (D5lr) 1,000 mls @ 125 mls/hr IV DIRECT GREGORY Last Admin: 07/23/17 12:30 Dose: 125 mls/hr Oxytocin/Sodium Chloride (Pitocin/Ns 20 Unit/1000ml Drip) 20 units in 1,000 mls @ 250 mls/hr IV DIRECT GREGORY Labetalol HCl (Normodyne) 300 mg PO BID PENDING SALE TO [facility] Last Admin: 07/24/17 09:37 Dose: 300 mg Morphine Sulfate (Morphine) 4 mg IV Q4H PRN PRN Reason: Pain , Severe (7-10) Last Admin: 07/23/17 18:20 Dose: 4 mg Multi-Ingredient Ointment (Lansinoh) 1 applic TP PRN PRN PRN Reason: dryness/cracking Naloxone HCl (Narcan 0.4 Mg/1 Ml) 0.1 mg IV Q2MIN PRN PRN Reason: Res Rate </= 8 or 02 SAT < 92% Ondansetron HCl (Zofran) 4 mg IV Q6H PRN PRN Reason: Nausea And Vomiting Last Admin: 07/21/17 21:47 Dose: 4 mg Oxycodone/Acetaminophen (Percocet 5/325) 2 tab PO Q4H PRN PRN Reason: Pain, Moderate (4-6) Last Admin: 07/24/17 18:22 Dose: 2 tab Prednisone (Deltasone) 5 mg PO QDAY PENDING SALE TO [facility] Last Admin: 07/24/17 09:36 Dose: 5 mg Witch Romy/Glycerin (Tucks Pad) 1 each TP PRN PRN PRN Reason: Hemorrhoids/cleansing/soothing Zolpidem Tartrate (Ambien) 10 mg PO ONCE PRN PRN Reason: Sleep Last Admin: 07/20/17 23:55 Dose: 10 mg Review of Systems Constitutional: no weight loss, no weight gain, no fever, no chills Ears, nose, mouth and throat: no ear pain, no ear discharge, no tinnitis, no decreased hearing, no nose pain, no nasal congestion, no epistaxis, no bleeding gums, no dental pain, no mouth pain Breasts: no change in shape, no swelling, no mass Cardiovascular: no chest pain, no orthopnea, no palpitations, no rapid/ irregular heart beat, no edema, no syncope Respiratory: no cough, no cough with sputum, no excessive sputum, no hemoptysis , no shortness of breath Gastrointestinal: no abdominal pain, no nausea, no vomiting, no diarrhea, no constipation Genitourinary Female: no pelvic pain, no flank pain, no menorrhagia Rectal: no pain, no incontinence, no bleeding Musculoskeletal: no neck stiffness, no neck pain, no shooting arm pain, no arm numbness/tingling, no low back pain, no shooting leg pain Integumentary: no rash, no pruritis, no redness, no sores, no wounds, no jaundice, no boils Neurological: no head injury, no transient paralysis, no paralysis, no weakness , no parathesias, no numbness Psychiatric: no anxiety, no memory loss, no change in sleep habits, no sleep disturbances, no insomnia, no hypersomnia Endocrine: no cold intolerance, no heat intolerance, no polyphagia, no excessive thirst, no polydipsia, no polyuria, no nocturia Hematologic/Lymphatic: no easy bruising, no easy bleeding Allergic/Immunologic: no urticaria, no allergic rhinitis, no wheezing Exam - Constitutional Vitals: Temp Pulse Resp BP Pulse Ox 99.6 F 98 H 22 123/76 94 07/24/17 16:06 07/24/17 16:06 07/24/17 16:06 07/24/17 16:06 07/24/17 16:06 General appearance: Present: no acute distress, well-nourished - EENT Eyes: Present: PERRL ENT: hearing intact, clear oral mucosa - Neck Neck: Present: supple, normal ROM - Respiratory Respiratory effort: normal Respiratory: bilateral: CTA - Cardiovascular Heart Sounds: Present: S1 & S2. Absent: rub, click - Extremities Extremities: pulses symmetrical, No edema Peripheral Pulses: within normal limits - Abdominal General gastrointestinal: Present: soft, non-tender, non-distended, normal bowel sounds, other (appropriately tender, incision, CDI) Female genitourinary: Present: normal - Integumentary Integumentary: Present: clear, warm, dry - Musculoskeletal Musculoskeletal: gait normal, strength equal bilaterally - Psychiatric Psychiatric: appropriate mood/affect, intact judgment & insight - Neurologic Neurologic: CNII-XII intact, moves all extremities Results - Labs CBC & Chem 7: 07/23/17 12:51 07/23/17 12:51 Labs: Abnormal lab results 07/23/17 07/24/17 Range/Units 18:08 00:59 Magnesium 6.60 H 6.20 H (1.7-2.3) mg/dL Assessment and Plan - Patient Problems (1) SLE (systemic lupus erythematosus) Current Visit: Yes Status: Acute Plan to address problem: Pt denies classic symptoms of lupus flare, In addition, SLE flare is less likely during . Will nontheless conduct diagnostic testing. Will conduct Anti Rho/La antibodies, DS DNA, Complement levels, as well as urine protein and creatnine ratio. Pt seeen by outpatient leather cleaner and taken off medication. Will continue low dose steroids at this time. may adjust dose depending on lab results. (2) Chronic ITP (idiopathic thrombocytopenic purpura) Onset Date: ~07/17/17 Current Visit: Yes Status: Chronic Plan to address problem: Stable, continue steroid therapy as per primary team. (3) History of pulmonary embolus (PE) Onset Date: ~07/17/17 Current Visit: Yes Status: Chronic Plan to address problem: Stable, management as per primary team. (4) Migraine Current Visit: Yes Status: Chronic Qualifiers: Status migrainosus presence: without status migrainosus Intractability: not intractable Plan to address problem: Stable, pt asymptomatic at this time. continue to monitor.
[2017-07-24] MEDS: MORPHINE IV PRN (20:41)
[2017-07-25] MEDS: PERCOCET 5/325 PO PRN ×5 (04:05→22:30)
--- NOTE | 2017-07-25 07:56 | Progress Note ---
Assessment and Plan patient resting w/o complaints. States pain medication is effective at controlling her pain. Incision dry and intact, raf present. Lochia scant, H& H stable, b/p's stable 120-140/60-90, afebrile. Patient is pumping and ambulating to NICU to visit baby. Patient states yesterday she had some "swelling" in her abd, today abdomen soft and nontender - could possibly be gas. Advised to ambulate and use ISS. Dr. Jimenez consulted. Continue current postop pathway. - Patient Problems (1) Chronic ITP (idiopathic thrombocytopenic purpura) Onset Date: ~07/17/17 Current Visit: Yes Status: Chronic (2) History of pulmonary embolus (PE) Onset Date: ~07/17/17 Current Visit: Yes Status: Chronic Plan to address problem: Continue lovenox (3) Lupus (systemic lupus erythematosus) Onset Date: ~07/17/17 Current Visit: Yes Status: Chronic Qualifiers: Systemic lupus erythematosus type: other Systemic lupus erythematosus organ involvement: glomerular disease Qualified Code(s): M32.14 - Glomerular disease in systemic lupus erythematosus Plan to address problem: Hospitalist consult - see note (4) delivery delivered Current Visit: Yes Status: Acute (5) Severe preeclampsia Onset Date: ~07/14/17 Current Visit: Yes Status: Acute Qualifiers: Trimester: second trimester Qualified Code(s): O14.12 - Severe pre- eclampsia, second trimester Subjective - Subjective Date of service: 07/25/17 Principal diagnosis: Day #2 s/p Primary Sec., Severe PreE, ITP, h/o PE , SLE, migraines Patient reports: appetite normal, voiding normally, pain well controlled, flatus , ambulating normally, no dizzy ambulation, no nauseated [place]: in NICU (doing well per patient) Objective - Vital Signs Latest vital signs: Vital Signs Temp Pulse Resp BP BP BP Pulse Ox 07/25/17 05:05 18 07/25/17 04:05 18 07/25/17 04:00 98.6 F 69 18 130/79 07/24/17 23:57 18 07/24/17 22:58 99.2 F 100 H 20 140/92 140/92 07/24/17 22:57 18 07/24/17 21:11 18 12/11/17 20:41 18 07/24/17 16:06 99.6 F 98 H 22 123/76 94 07/24/17 12:13 99.8 F H 95 H 22 119/79 96 07/24/17 09:37 92 H 131/91 Intake and Output 07/24/17 07/24/17 07/25/17 15:59 23:59 07:59 Intake Total 360 240 300 Output Total 850 450 Balance -490 -210 300 Intake: Oral 360 240 Intake, Free Water 300 Output: Urine 850 450 Void 850 450 Other: Total, Intake Amount 120 240 Total, Output Amount 500 450 # Voids Void 1 1 Weight 74.843 kg - Exam Breasts: Present: normal Cardiovascular: Present: Regular rate Lungs: Present: Clear to auscultation, Normal air movement Abdomen: Present: normal appearance, soft Vulva: both: normal Uterus: Present: normal, firm, fundal height below umbilicus Extremities: Present: normal Deep Tendon Reflex Grade: Normal +2 Incision: Present: normal, dry, intact ([place]) - Labs Labs: Abnormal lab results 07/25/17 Range/Units 04:00 Urine Creatinine 136.2 H (0.1-20.0) mg/dL Urine Total Protein 504 H (5-11.8) mg/dL
[2017-07-25] MEDS: LOVENOX SUB-Q SCH (09:59)
[2017-07-25] MEDS: NORMODYNE PO SCH ×2 (10:00→22:28)
[2017-07-25] MEDS: DELTASONE PO SCH (10:00)
--- NOTE | 2017-07-25 16:38 | Progress Note ---
Assessment and Plan /SLE (systemic lupus erythematosus) Pt denies classic symptoms of lupus flare. Will nontheless conduct diagnostic testing. Will conduct Anti Rho/La antibodies, DS DNA, Complement levels, as well as urine protein and creatnine ratio. Pt seeen by outpatient hr advisor and taken off medication. Will continue low dose steroids at this time. may adjust dose depending on lab results which could be done as outpt also. She could be f/u by her hr advisor as outpt. Discussed with Patient and she agrees. /Chronic ITP (idiopathic thrombocytopenic purpura) Stable, continue steroid therapy as per primary team. /History of pulmonary embolus (PE) Stable, management as per primary team. /Migraine Stable, pt asymptomatic at this time. continue to monitor. Brief History: 27 YO Female with SLE, Not taking outpatient medication as per her private Mechanical Engineering Technician,PE, admitted for severe preeclampsia, S/P emergent delivery via c section. Consult placed by Dr. Noble for SLE Flare. Physical exam: General appearance: Present: no acute distress, well-nourished - EENT Eyes: Present: PERRL ENT: hearing intact, clear oral mucosa - Neck Neck: Present: supple, normal ROM - Respiratory Respiratory effort: normal Respiratory: bilateral: CTA - Cardiovascular Heart Sounds: Present: S1 & S2. Absent: rub, click - Extremities Extremities: pulses symmetrical, No edema Peripheral Pulses: within normal limits - Abdominal General gastrointestinal: Present: soft, non-tender, non-distended, normal bowel sounds, other (appropriately tender, incision, CDI) Female genitourinary: Present: normal - Integumentary Integumentary: Present: warm, dry, patchy black rash on extremities and on back - Musculoskeletal Musculoskeletal: gait normal, strength equal bilaterally - Psychiatric Psychiatric: appropriate mood/affect, intact judgment & insight - Neurologic Neurologic: CNII-XII intact, moves all extremities Subjective Date of service: 07/25/17 Principal diagnosis: Day #2 s/p Primary Sec., Severe PreE, ITP, h/o PE , SLE, migraines Interval history: pt seen and examined c/o itching Objective - Constitutional Vitals: Vital Signs Temp 98.8 F 07/25/17 12:20 Pulse 98 H 07/25/17 12:20 Resp 20 07/25/17 12:39 BP 136/94 07/25/17 12:20 Pulse Ox 94 07/24/17 16:06 Intake & Output 07/24/17 07/25/17 07/25/17 23:59 11:59 23:59 Intake Total 360 420 120 Output Total 950 Balance -590 420 120 Weight 74.843 kg Intake: Oral 360 120 120 Intake, Free Water 300 Output: Urine 950 Void 950 Other: Total, Intake Amount 240 120 120 Total, Output Amount 450 # Voids Void 1 1 - Labs CBC & Chem 7: 07/23/17 12:51 07/23/17 12:51 Labs: Abnormal lab results 07/25/17 Range/Units 04:00 Urine Creatinine 136.2 H (0.1-20.0) mg/dL Urine Total Protein 504 H (5-11.8) mg/dL
[2017-07-26] MEDS: PERCOCET 5/325 PO PRN ×4 (03:21→22:09)
--- NOTE | 2017-07-26 08:00 | Progress Note ---
Assessment and Plan patient resting with c/o pain around incision especially during movement. Discussed using pain medication as needed but she needs to be ambulating and performing self care as much as possible. Patient states she is unable to differentiate surgical pain from the pain associated with a lupus flare. Elevated b/p's (130-140's/90-100) noted over night but currently normal. She denies MACKENZIE, visual changes or epigastric pain. Continue with current management, will consult Dr. Perry. Labs ordered by hospitalist are still pending. - Patient Problems (1) Chronic ITP (idiopathic thrombocytopenic purpura) Onset Date: ~07/17/17 Current Visit: Yes Status: Chronic (2) History of pulmonary embolus (PE) Onset Date: ~07/17/17 Current Visit: Yes Status: Chronic Plan to address problem: Continue lovenox (3) Lupus (systemic lupus erythematosus) Onset Date: ~07/17/17 Current Visit: Yes Status: Chronic Qualifiers: Systemic lupus erythematosus type: other Systemic lupus erythematosus organ involvement: glomerular disease Qualified Code(s): M32.14 - Glomerular disease in systemic lupus erythematosus Plan to address problem: Pt being followed by hospitalist Labs pending (4) delivery delivered Current Visit: Yes Status: Acute Plan to address problem: Continue postop care (5) Severe preeclampsia Onset Date: ~07/14/17 Current Visit: Yes Status: Acute Qualifiers: Trimester: second trimester Qualified Code(s): O14.12 - Severe pre- eclampsia, second trimester Plan to address problem: monitor for s/s pre-e Labetalol 300mg PO BID Subjective - Subjective Date of service: 07/26/17 Principal diagnosis: Day #3 s/p Primary Sec., Severe PreE, ITP, h/o PE , SLE, migraines Patient reports: appetite normal, voiding normally, pain well controlled, flatus , ambulating normally, no dizzy ambulation, no nauseated : in NICU (doing well, per patient) Objective - Vital Signs Latest vital signs: Vital Signs Temp Pulse Resp BP BP 07/26/17 00:00 98.4 F 92 H 18 122/79 07/25/17 22:30 18 07/25/17 22:28 90 119/86 07/25/17 20:05 98.4 F 92 H 18 119/86 07/25/17 19:52 16 07/25/17 18:52 20 07/25/17 16:40 98.2 F 89 18 137/93 07/25/17 12:39 20 07/25/17 12:20 98.8 F 98 H 18 136/94 07/25/17 10:00 94 H 146/100 07/25/17 08:40 20 07/25/17 08:20 98.9 F 94 H 18 146/100 Intake and Output 07/25/17 07/25/17 07/26/17 15:59 23:59 07:59 Intake Total 240 240 Balance 240 240 Intake: Oral 240 240 Other: Total, Intake Amount 120 120 # Voids Void 1 1 - Exam Breasts: Present: normal Cardiovascular: Present: Regular rate Lungs: Present: Clear to auscultation, Normal air movement Abdomen: Present: normal appearance, soft. Absent: tenderness, guarding, rigidity Vulva: both: normal Uterus: Present: normal, firm, fundal height at umbilicus Extremities: Present: normal Incision: Present: normal, dry, intact (raf)
[2017-07-26] MEDS: NORMODYNE PO SCH ×2 (10:45→22:10)
[2017-07-26] MEDS: LOVENOX SUB-Q SCH (10:45)
[2017-07-26] MEDS: DELTASONE PO SCH (10:45)
--- NOTE | 2017-07-26 11:20 | Progress Note ---
Assessment and Plan /SLE (systemic lupus erythematosus) Pt denies classic symptoms of lupus flare. Will nontheless conduct diagnostic testing. Will conduct Anti Rho/La antibodies, DS DNA, Complement levels, as well as urine protein and creatnine ratio. Pt seeen by outpatient lead machinist and taken off medication. Will continue low dose steroids at this time. may adjust dose depending on lab results which could be done as outpt also. She could be f/u by her lead machinist as outpt. Discussed with Patient and she agrees. /Chronic ITP (idiopathic thrombocytopenic purpura) Stable, continue steroid therapy as per primary team. /History of pulmonary embolus (PE) Stable, management as per primary team. /Migraine Stable, pt asymptomatic at this time. continue to monitor. Brief History: 27 YO Female with SLE, Not taking outpatient medication as per her private Instrument Man,PE, admitted for severe preeclampsia, S/P emergent delivery via c section. Consult placed by Dr. Noble for SLE Flare. Physical exam: General appearance: Present: no acute distress, well-nourished - EENT Eyes: Present: PERRL ENT: hearing intact, clear oral mucosa - Neck Neck: Present: supple, normal ROM - Respiratory Respiratory effort: normal Respiratory: bilateral: CTA - Cardiovascular Heart Sounds: Present: S1 & S2. Absent: rub, click - Extremities Extremities: pulses symmetrical, No edema Peripheral Pulses: within normal limits - Abdominal General gastrointestinal: Present: soft, non-tender, non-distended, normal bowel sounds, other (appropriately tender, incision, CDI) Female genitourinary: Present: normal - Integumentary Integumentary: Present: warm, dry, patchy black rash on extremities and on back - Musculoskeletal Musculoskeletal: gait normal, strength equal bilaterally - Psychiatric Psychiatric: appropriate mood/affect, intact judgment & insight - Neurologic Neurologic: CNII-XII intact, moves all extremities Subjective Date of service: 07/26/17 Principal diagnosis: Day #2 s/p Primary Sec., Severe PreE, ITP, h/o PE , SLE, migraines Interval history: pt seen and examined states improved itching, but no new rash Objective - Constitutional Vitals: Vital Signs - 12hr 07/26/17 07/26/17 00:00 08:45 Temperature 98.4 F 98.6 F Pulse Rate 92 H 93 H Respiratory 18 18 Rate Blood Pressure 122/79 147/90 [Right] O2 Sat by Pulse 96 Oximetry - Labs CBC & Chem 7: 07/23/17 12:51 07/26/17 15:06
[2017-07-26 15:37] LABS: Anion Gap 16 mmol/L; BUN/Creatinine Ratio 14; Blood Urea Nitrogen 11 mg/dL (7-17); Calcium 7.7 mg/dL (8.4-10.2); Carbon Dioxide 25 mmol/L (22-30); Chloride 104.2 mmol/L (98-107); Glucose 98 mg/dL (65-100); Potassium 4.9 mmol/L (3.6-5.0); Sodium 140 mmol/L (137-145)
[2017-07-26] MEDS: AMBIEN PO PRN (22:11)
[2017-07-27] MEDS: PERCOCET 5/325 PO PRN ×3 (05:05→14:20)
[2017-07-27] MEDS: LOVENOX SUB-Q SCH (10:24)
[2017-07-27] MEDS: DELTASONE PO SCH (10:26)
[2017-07-27] MEDS: NORMODYNE PO SCH (10:26)
--- NOTE | 2017-07-27 13:42 | Discharge Summary ---
Providers - Providers Date of Admission: 07/14/17 16:15 Date of discharge: 07/27/17 Attending physician: IRMA MONTAGUE 07/24/17 18:35 Consult to Physician [CONS] Routine Consulting Provider: WILLI NIXON Reason For Exam: lupus flare Place consult to:: hospitalist Notified:: Willi Nixon Phone number called:: [phone] Primary care physician: PARAPROFESSIONAL INTERPRETER Hospitalization Reason for admission: other (severe preeclampsia, lupus flare, ITP and history of pulmonary embolus) Delivery: Procedure: section, other (primary classical) Incision: normal, intact complications: none Discharge diagnosis: delivery [place] baby: female Hospital course: Patient was admitted on 07/14/2017 For severe preeclampsia favoring help but the clinical picture complicated by history of lupus flare and no history of idiopathic thrombocytopenia. Patient was on the management of her primary team will consults from perinatologist patient was doing well with treatment monitoring done by 3. ultrasounds with Doppler studies, labetalol, heparin injections and prednisone. On July 22 the patient monitoring did become nonreassuring and due to the breech presentation and as been discussed throughout her hospital stay delivery was indicated and the patient underwent a classical section. Postoperatively the patient did well did have to continue her labetalol did have a consult for her lupus and ITP which plan was continued prednisone and follow-up as outpatient. Condition at discharge: Good Disposition: DC-01 TO HOME OR SELFCARE - Discharge Diagnoses (1) 26 weeks gestation of Status: Resolved (2) Breech presentation Status: Resolved Qualifiers: Fetus number: single or unspecified fetus Qualified Code(s): O32.1XX0 - Maternal care for breech presentation, not applicable or unspecified (3) delivery delivered Status: Acute (4) Elevated blood pressure affecting in second trimester, antepartum Status: Acute Comment: Patient discharge continue her labetalol 300 mg twice a day (5) SLE (systemic lupus erythematosus) Status: Acute Qualifiers: Systemic lupus erythematosus type: unspecified Systemic lupus erythematosus organ involvement: glomerular disease Qualified Code(s): M32.14 - Glomerular disease in systemic lupus erythematosus Comment: Patient discharge states that she will continue her home prednisone and follow-up with her recovery coordinator as outpatient (6) Severe preeclampsia Status: Acute Qualifiers: Trimester: second trimester Qualified Code(s): O14.12 - Severe pre- eclampsia, second trimester (7) Chronic ITP (idiopathic thrombocytopenic purpura) Status: Chronic Comment: Patient follow-up outpatient with recovery coordinator (8) History of pulmonary embolus (PE) Status: Chronic Comment: Patient was discharged on Lovenox Plan - Discharge Medications Prescriptions: Ferrous Sulfate [Feosol 325 MG tab] 325 mg PO BID #60 tablet Labetalol HCl 300 mg PO BID #60 tablet Enoxaparin [Lovenox] 40 mg SQ QDAY #20 syringe oxyCODONE /ACETAMINOPHEN [Percocet 5/325 mg] 1 - 2 tab PO Q4H PRN #30 tablet PRN Reason: Pain, Moderate - Provider Discharge Summary Activity: routine, no sex for 6 weeks, no heavy lifting 4 weeks, no strenuous exercise Diet: routine Instructions: routine Additional instructions: [] Smoking cessation referral if applicable(refer to patient education folder for contact #) [] Refer to [facility] Booklet Call your doctor immediately for: * Fever > 100.5 * Heavy vaginal bleeding ( >1 pad per hour) * Severe persistent headache * Shortness of breath * Reddened, hot, painful area to leg or breast * Drainage or odor from incision. * Keep incision clean and dry at all times and follow doctor's instructions regarding bathing/showering patient call office for severe headache blurred vision. - Follow up plan Follow up: MATY OCONNELL MD [Staff Physician] - 7 Days Forms: [facility] Discharge Summary
--- NOTE | 2017-07-27 16:23 | Progress Note ---
Assessment and Plan /SLE (systemic lupus erythematosus) Pt denies classic symptoms of lupus flare. Will nontheless conduct diagnostic testing. ordered Anti Rho/La antibodies, DS DNA, Complement levels, as well as urine protein and creatnine ratio. Pt seeen by outpatient reel stripper and taken off medication. Will continue low dose steroids at this time. may adjust dose depending on lab results which could be done as outpt also. She could be f/ u by her reel stripper as outpt. Discussed with Patient and she agrees. Complement levels are normal. /Chronic ITP (idiopathic thrombocytopenic purpura) Stable, continue steroid therapy as per primary team. /History of pulmonary embolus (PE) Stable, management as per primary team. /Migraine Stable, pt asymptomatic at this time. continue to monitor. Brief History: 27 YO Female with SLE, Not taking outpatient medication as per her private Facilitator,PE, admitted for severe preeclampsia, S/P emergent delivery via c section. Consult placed by Dr. Nbole for SLE Flare. Physical exam: General appearance: Present: no acute distress, well-nourished - EENT Eyes: Present: PERRL ENT: hearing intact, clear oral mucosa - Neck Neck: Present: supple, normal ROM - Respiratory Respiratory effort: normal Respiratory: bilateral: CTA - Cardiovascular Heart Sounds: Present: S1 & S2. Absent: rub, click - Extremities Extremities: pulses symmetrical, No edema Peripheral Pulses: within normal limits - Abdominal General gastrointestinal: Present: soft, non-tender, non-distended, normal bowel sounds, other (appropriately tender, incision, CDI) Female genitourinary: Present: normal - Integumentary Integumentary: Present: warm, dry, patchy black rash on extremities and on back - Musculoskeletal Musculoskeletal: gait normal, strength equal bilaterally - Psychiatric Psychiatric: appropriate mood/affect, intact judgment & insight - Neurologic Neurologic: CNII-XII intact, moves all extremities Subjective Date of service: 07/27/17 Principal diagnosis: Day #2 s/p Primary Sec., Severe PreE, ITP, h/o PE , SLE, migraines Interval history: pt seen and examined states improved itching, but no new rash Objective - Constitutional Vitals: Vital Signs - 12hr 07/27/17 07/27/17 07/27/17 05:30 09:08 10:26 Temperature 98.4 F 98.2 F Pulse Rate 87 98 H Respiratory 20 18 Rate Blood Pressure 126/84 Blood Pressure 158/98 126/84 [Right] - Labs CBC & Chem 7: 07/23/17 12:51 07/26/17 15:06
[2017-07-27 19:51] VITALS: BP 123/70
== END 2017-07-27 15:00 | disposition home or self-care (01) | DRG 765 ==
LOC: LD 16:15 → APU 07-23 04:12 → OB 07-23 08:52
PROVIDERS: ADMIT Obstetrics & Gynecology; ATTEND Obstetrics & Gynecology
PROC: 10D00Z0 Extraction of Products of Conception, High, Open Approach (ICD-10-PCS; principal; 2017-07-23)
PROC: 3E0234Z Introduction of Serum, Toxoid and Vaccine into Muscle, Percutaneous Approach (ICD-10-PCS; 2017-07-24)
DX: O60.12X0 Preterm labor second trimester with preterm delivery second trimester, not applicable or unspecified (principal); D62 Acute posthemorrhagic anemia; D69.3 Immune thrombocytopenic purpura; O99.12 Other diseases of the blood and blood-forming organs and certain disorders involving the immune mechanism complicating childbirth; O99.354 Diseases of the nervous system complicating childbirth; O14.14 Severe pre-eclampsia complicating childbirth; M32.9 Systemic lupus erythematosus, unspecified; Z37.0 Single live birth; Z3A.25 25 weeks gestation of pregnancy; Z86.711 Personal history of pulmonary embolism; G43.909 Migraine, unspecified, not intractable, without status migrainosus; O75.89 Other specified complications of labor and delivery; O36.5920 Maternal care for other known or suspected poor fetal growth, second trimester, not applicable or unspecified; Z23 Encounter for immunization; O32.1XX0 Maternal care for breech presentation, not applicable or unspecified; O99.02 Anemia complicating childbirth
CPT/HCPCS: 36415; 76805; 76815; 76816; 76819; 76820; 80048; 80053; 81001; 82565; 82570; 82575; 83615; 83735; 84156; 84450; 84460; 84550; 85027; 86160; 86225; 86235; 86850; 86900; 86901; 88305; 99211; C1765; G0463; J0360; J0690; J0702; J1644; J1650; J1720; J2250; J2270; J2405; J2590; J2765; J3475; J7120; J7121; J7512

== ENCOUNTER 2017-10-08 15:41 | Inpatient (IN) | payer OTHER ==
[2017-10-08] MEDS ORDERED: ASPIRIN PO ONE (15:49)
[2017-10-08 16:12] LABS: BUN/Creatinine Ratio 15; Blood Urea Nitrogen 12 mg/dL (7-17); Calcium 8.2 mg/dL (8.4-10.2); Hemolysis Index 1
[2017-10-08 16:16] LABS: Basophils % (Auto) 0.3 % (0.0-1.8); Eosinophils # (Auto) 0.1 K/mm3 (0.0-0.4); Eosinophils % (Auto) 1.1 % (0.0-4.3); Hematocrit 31.1 % (30.3-42.9); Hemoglobin 10.1 gm/dl (10.1-14.3); Lymphocytes # (Auto) 1.3 K/mm3 (1.2-5.4); Lymphocytes % (Auto) 24.7 % (13.4-35.0); Mean Corpuscular HGB Conc 33 % (30-34); Mean Corpuscular Hemoglobin 27 pg (28-32); Mean Corpuscular Volume 83 fl (79-97); Monocytes # (Auto) 0.5 K/mm3 (0.0-0.8); Monocytes % (Auto) 9.2 % (0.0-7.3); Platelet Count 183 K/mm3 (140-440); Red Blood Count 3.73 M/mm3 (3.65-5.03); Red Cell Distribution Width 16.2 % (13.2-15.2)
[2017-10-08 16:17] LABS: INR 0.85 (0.87-1.13)
[2017-10-08 16:18] LABS: Partial Thromboplastin Time 33.1 Sec. (24.2-36.6)
--- NOTE | 2017-10-08 17:03 | Emergency Department Report ---
ED Chest Pain HPI - General Chief Complaint: Chest Pain Stated Complaint: CHEST PAIN/JAMES Time Seen by Provider: 10/08/17 16:58 Source: patient (Chest pain and SHOB for 2 days, worse today, first the pain was sharp upper left back worse with coughing or taking a deep breath then it moved to left upper chest. Pain is also worse with movement and exertion. She has h/o PE X2. ) Mode of arrival: Ambulatory Limitations: No Limitations - Related Data Previous Rx's Medication Instructions Recorded Last Taken Type Enoxaparin [Lovenox] 40 mg SQ QDAY #20 syringe 07/27/17 Unknown Rx Ferrous Sulfate [Feosol 325 MG tab] 325 mg PO BID #60 tablet 07/27/17 Unknown Rx Labetalol HCl 300 mg PO BID #60 tablet 07/27/17 Unknown Rx oxyCODONE /ACETAMINOPHEN [Percocet 1 - 2 tab PO Q4H PRN #30 tablet 07/27/17 Unknown Rx 5/325 mg] Allergies Allergy/AdvReac Type Severity Reaction Status Date / Time NSAIDS (Non-Steroidal Allergy Unknown Verified 10/08/17 15:43 Anti-Inflamma Heart Score - HEART Score History: Slightly suspicious EKG: Normal Age: < 45 Risk factors: 1-2 risk factors Troponin: < normal limit HEART Score: 1 ED Review of Systems ROS: Stated complaint: CHEST PAIN/JAMES Other details as noted in HPI Constitutional: denies: chills, fever Eyes: denies: eye pain, eye discharge, vision change ENT: denies: ear pain, throat pain Respiratory: see HPI, cough, shortness of breath, SOB with exertion, SOB at rest. denies: wheezing Cardiovascular: as per HPI, chest pain. denies: palpitations Endocrine: no symptoms reported Gastrointestinal: denies: abdominal pain, nausea, diarrhea Genitourinary: denies: urgency, dysuria, discharge Musculoskeletal: denies: back pain, joint swelling, arthralgia Skin: denies: rash, lesions Neurological: denies: headache, weakness, paresthesias Psychiatric: denies: anxiety, depression Hematological/Lymphatic: denies: easy bleeding, easy bruising ED Past Medical Hx - Past Medical History Hx Hypertension: No Hx Diabetes: No Hx Deep Vein Thrombosis: No Hx Renal Disease: No Hx Sickle Cell Disease: No Hx Seizures: No Hx Asthma: No Hx COPD: No Hx HIV: No Additional medical history: blood clots in legs and chest - Surgical History Additional Surgical History: csection - Social History Smoking Status: Never Smoker Substance Use Type: None - Medications Home Medications: Home Medications Medication Instructions Recorded Confirmed Last Taken Type Enoxaparin [Lovenox] 40 mg SQ QDAY #20 syringe 07/27/17 Unknown Rx Ferrous Sulfate [Feosol 325 MG tab] 325 mg PO BID #60 tablet 07/27/17 Unknown Rx Labetalol HCl 300 mg PO BID #60 tablet 07/27/17 Unknown Rx oxyCODONE /ACETAMINOPHEN [Percocet 1 - 2 tab PO Q4H PRN #30 tablet 07/27/17 Unknown Rx 5/325 mg] ED Physical Exam - General Limitations: No Limitations General appearance: alert, in no apparent distress - Head Head exam: Present: atraumatic, normocephalic - Eye Eye exam: Present: normal appearance - ENT ENT exam: Present: mucous membranes moist - Neck Neck exam: Present: normal inspection - Respiratory Respiratory exam: Present: normal lung sounds bilaterally. Absent: respiratory distress - Cardiovascular Cardiovascular Exam: Present: regular rate, normal rhythm. Absent: systolic murmur, diastolic murmur, rubs, gallop - GI/Abdominal GI/Abdominal exam: Present: soft, normal bowel sounds - Extremities Exam Extremities exam: Present: normal inspection - Back Exam Back exam: Present: normal inspection - Neurological Exam Neurological exam: Present: alert, oriented X3 - Psychiatric Psychiatric exam: Present: normal affect, normal mood - Skin Skin exam: Present: warm, dry, intact, normal color. Absent: rash ED Course Vital Signs 10/08/17 15:44 Temperature 97.1 F L Pulse Rate 100 H Respiratory 32 H Rate Blood Pressure 157/114 O2 Sat by Pulse 100 Oximetry ED Medical Decision Making - Lab Data Result diagrams: 10/08/17 15:53 10/08/17 15:53 Critical care attestation.: If time is entered above; I have spent that time in minutes in the direct care of this critically ill patient, excluding procedure time. ED Disposition Clinical Impression: Pulmonary embolism Qualifiers: Pulmonary embolism type: other Chronicity: acute Acute cor pulmonale presence: without acute cor pulmonale Qualified Code(s): I26.99 - Other pulmonary embolism without acute cor pulmonale Disposition: OP ADMIT IP TO THIS HOSP Is pt being admited?: Yes Does the pt Need Aspirin: No Condition: Stable Time of Disposition: 19:38
[2017-10-08] MEDS ORDERED: TORADOL ONE ×2 (17:55→18:07)
--- NOTE | 2017-10-08 18:11 | XRay Report ---
FINAL REPORT PROCEDURE: Chest. TECHNIQUE: Portable AP view. HISTORY: Difficulty breathing. COMPARISON: No prior studies are available for comparison. FINDINGS: The heart and mediastinum appear normal. The lungs are clear and well expanded. There are no pleural effusions. The soft tissues and regional skeleton are unremarkable. IMPRESSION: Negative portable chest.
[2017-10-08] MEDS ORDERED: NORMODYNE ONE ×2 (18:19→22:10)
[2017-10-08] MEDS ORDERED: MORPHINE IV ONE (18:19)
[2017-10-08] MEDS ORDERED: MORPHINE ONE (18:23)
[2017-10-08] MEDS ORDERED: NACL ONE (18:26)
[2017-10-08] MEDS ORDERED: NORMODYNE PO ONE ×2 (18:48→19:00)
--- NOTE | 2017-10-08 19:25 | Cat Scan Report ---
FINAL REPORT PROCEDURE: CT angiogram chest with contrast. TECHNIQUE: Computerized tomographic angiography of the chest was performed after the IV injection of iodinated nonionic contrast including image processing. The image data was postprocessed using 2-dimensional multiplanar reformatted (MPR) and 3-dimensional (MIP and/or volume rendered) techniques. HISTORY: Elevated D-dimer, previous pulmonary embolism history, chest pain. COMPARISON: No prior studies are available for comparison. FINDINGS: The trachea and central bronchi appear normal. The lungs are clear and well expanded. There are no signs of pneumonia. The thoracic aorta has a normal caliber without evidence of dissection. There are filling defects in pulmonary arterial branches supplying the left lower lobe. These are consistent with pulmonary emboli. There is no mediastinal adenopathy. The heart size is normal. There is a small left pleural effusion. The adrenal glands are not enlarged. The thoracic skeleton appears intact. IMPRESSION: Pulmonary emboli in the left lower lobe. Small left pleural effusion.
--- NOTE | 2017-10-08 20:14 | History and Physical Report ---
History of Present Illness Chief complaint: My chest hurts, and I cant breathe History of present illness: 27 YO Female with SLE, DVT/PE, Chronic ITP, Noncompliance with therapeutic anticoagulation for the past 2 months due to loss of insurance presents to ED for evaluation. Pt states that she has experienced pain in her chest with deep breathing, as well as shortness of breath over the past 2 days with worsening symptoms over the past 10 hours. Pt acknowledges shortness of breath with exertion. Pt denies fever, chills, Palpitations, Hemoptysis, Productive cough, syncope, trauma, unintentional weight loss, night sweats, skin rash, or recent ill contacts. Pt seen and evaluated in ED and found to have Left Pulmonary Embolus complicated by acute respiratory failure. Pt treated with supplemental oxygen, nebulizer therapy and supportive care. Pt initiated on therapeutic anticoagulation and admitted to medical floor. Pt is currently . Past History Past Medical History: DVT, pulmonary embolism, other (ITP,SLE) Past Surgical History: Social history: single. denies: smoking, alcohol abuse, prescription drug abuse Family history: hypertension Medications and Allergies Allergies Allergy/AdvReac Type Severity Reaction Status Date / Time NSAIDS (Non-Steroidal Allergy Unknown Verified 10/08/17 15:43 Anti-Inflamma Home Medications Medication Instructions Recorded Confirmed Last Taken Type Enoxaparin [Lovenox] 40 mg SQ QDAY #20 syringe 07/27/17 Unknown Rx Ferrous Sulfate [Feosol 325 MG tab] 325 mg PO BID #60 tablet 07/27/17 Unknown Rx Labetalol HCl 300 mg PO BID #60 tablet 07/27/17 Unknown Rx oxyCODONE /ACETAMINOPHEN [Percocet 1 - 2 tab PO Q4H PRN #30 tablet 07/27/17 Unknown Rx 5/325 mg] Review of Systems Constitutional: no weight loss, no weight gain, no fever, no chills Ears, nose, mouth and throat: no ear pain, no ear discharge, no tinnitis, no decreased hearing Cardiovascular: no chest pain Respiratory: shortness of breath, pleurisy, pain on inspiration, no cough with sputum, no excessive sputum, no hemoptysis, no sleep apnea, no respiratory infections Gastrointestinal: no abdominal pain, no nausea, no vomiting, no diarrhea Genitourinary Female: no pelvic pain, no flank pain, no menorrhagia, no dysuria , no urinary frequency Menstruation: currently menstrual Rectal: no pain, no incontinence, no bleeding Musculoskeletal: no neck stiffness, no neck pain, no shooting arm pain, no arm numbness/tingling Integumentary: no rash, no pruritis, no sores, no wounds, no jaundice Neurological: no head injury, no transient paralysis, no paralysis, no weakness , no parathesias, no numbness Psychiatric: no anxiety, no memory loss, no change in sleep habits, no sleep disturbances, no insomnia, no hypersomnia Endocrine: no cold intolerance, no heat intolerance, no polyphagia, no excessive thirst, no polydipsia, no polyuria Hematologic/Lymphatic: no easy bruising, no easy bleeding, no lymphadenopathy, no lymphedema Allergic/Immunologic: no urticaria, no allergic rhinitis, no wheezing Exam - Constitutional Vitals: Temp Pulse Resp BP Pulse Ox 98.4 F 92 H 29 H 172/113 100 10/08/17 17:50 10/08/17 20:07 10/08/17 20:00 10/08/17 20:07 10/08/17 19:45 General appearance: Present: no acute distress, well-nourished - EENT Eyes: Present: PERRL ENT: hearing intact, clear oral mucosa - Neck Neck: Present: supple, normal ROM - Respiratory Respiratory effort: labored Respiratory: left: diminished, rhonchi - Cardiovascular Heart Sounds: Present: S1 & S2. Absent: rub, click - Extremities Extremities: pulses symmetrical, No edema Peripheral Pulses: within normal limits - Abdominal General gastrointestinal: Present: soft, non-tender, non-distended, normal bowel sounds Female genitourinary: Present: normal - Integumentary Integumentary: Present: clear, warm, dry - Musculoskeletal Musculoskeletal: gait normal, strength equal bilaterally - Psychiatric Psychiatric: appropriate mood/affect, intact judgment & insight, agitated - Neurologic Neurologic: CNII-XII intact, moves all extremities Results - Labs CBC & Chem 7: 10/08/17 15:53 10/08/17 15:53 Labs: Abnormal lab results 10/08/17 10/08/17 10/08/17 Range/Units 15:53 15:53 15:53 MCH 27 L (28-32) pg RDW 16.2 H (13.2-15.2) % [place] % (Auto) 9.2 H (0.0-7.3) % PT 12.0 L (12.2-14.9) Sec. INR 0.85 L (0.87-1.13) D-Dimer 391.38 H (0-234) ng/mlDDU Calcium 8.2 L (8.4-10.2) mg/dL Assessment and Plan - Patient Problems (1) Acute respiratory failure Current Visit: Yes Status: Acute Qualifiers: Respiratory failure complication: hypoxia Qualified Code(s): J96.01 - Acute respiratory failure with hypoxia Plan to address problem: Supplemental oxygen, nebulizer therapy, NIPPV as clinically indicated, (2) Pulmonary embolism Current Visit: Yes Status: Acute Qualifiers: Pulmonary embolism type: other Chronicity: acute Acute cor pulmonale presence: without acute cor pulmonale Qualified Code(s): I26.99 - Other pulmonary embolism without acute cor pulmonale Plan to address problem: Supplemental oxygen, nebulizer thearpy, therapeutic anticoagulation, pulmonary toilet, incentive spirometry. NO RV strain pattern on EKG, Echo (3) SLE (systemic lupus erythematosus) Current Visit: No Status: Acute Qualifiers: Systemic lupus erythematosus type: unspecified Systemic lupus erythematosus organ involvement: glomerular disease Qualified Code(s): M32.14 - Glomerular disease in systemic lupus erythematosus Plan to address problem: continue current therapy, outpatient rheumatology f/u (4) Chronic ITP (idiopathic thrombocytopenic purpura) Onset Date: ~07/17/17 Current Visit: No Status: Chronic Plan to address problem: Platelet count stable and within normal limits. repeat cbc to monitor platelet count, and serial physical exam to monitor or bleeding. (5) DVT prophylaxis Current Visit: Yes Status: Acute Plan to address problem: continue therapeutic anticoagulation.
[2017-10-08] MEDS ORDERED: DULCOLAX PR PRN (20:16)
[2017-10-08] MEDS ORDERED: MILK OF MAGNESIA PO PRN (20:16)
[2017-10-08] MEDS ORDERED: ZOFRAN IV PRN (20:16)
[2017-10-08] MEDS ORDERED: NON-FORMULARY (Labetalol Hcl [Labetalol Hcl] 300 MG) PO SCH (22:00)
[2017-10-08] MEDS ORDERED: LOVENOX SUB-Q SCH (22:00)
[2017-10-08] MEDS ORDERED: LOVENOX SUB-Q ONE (22:09)
[2017-10-08] MEDS: FEOSOL PO SCH (23:17)
[2017-10-09] MEDS: PERCOCET 5/325 PO PRN ×2 (02:18→06:18)
[2017-10-09] MEDS ORDERED: APRESOLINE IV PRN (02:55)
[2017-10-09] MEDS: PROVENTIL IH SCH ×5 (03:39→19:58)
[2017-10-09] MEDS: NORMODYNE PO SCH ×2 (09:29→23:01)
[2017-10-09] MEDS: FEOSOL PO SCH ×2 (09:30→23:00)
[2017-10-09] MEDS: LOVENOX SUB-Q SCH ×2 (09:32→22:59)
--- NOTE | 2017-10-09 11:46 | Progress Note ---
Assessment and Plan Assessment and plan: 27 YO Female with SLE, DVT/PE, Chronic ITP, Noncompliance with therapeutic anticoagulation for the past 2 months due to loss of insurance presents to ED for evaluation. co pleuritic chest pain, found to have Left PE. currently , delivered a baby in 07/30 after emergency for pre- eclampsia Acute respiratory failure with hypoxia Supplemental oxygen, nebulizer therapy, NIPPV as clinically indicated, Pulmonary embolism Supplemental oxygen, nebulizer thearpy, therapeutic anticoagulation, pulmonary toilet, incentive spirometry. NO RV strain pattern on EKG, Echo today on full dose lovenox, plan to dc on eliquis when improved -i explained to patient that given hx of multiple PE and SLE that she will need lifelong anticoagulation SLE (systemic lupus erythematosus) continue current therapy, outpatient rheumatology f/u Chronic ITP (idiopathic thrombocytopenic purpura) Platelet count stable and within normal limits. repeat cbc to monitor platelet count, and serial physical exam to monitor or bleeding. DVT prophylaxis continue therapeutic anticoagulation. History Interval history: she is c/o pleuritic left sided CP and sob no vomiting, no fever, no extremity weakness or swelling Hospitalist Physical - Constitutional Vitals: Temp Pulse Resp BP Pulse Ox 99.4 F 103 H 18 132/85 96 10/09/17 08:32 10/09/17 08:32 10/09/17 08:32 10/09/17 09:29 10/09/17 09:27 General appearance: Present: no acute distress, well-nourished - EENT Eyes: Present: PERRL ENT: hearing intact - Neck Neck: Present: supple - Respiratory Respiratory effort: pursed lips Respiratory: bilateral: CTA - Cardiovascular Rhythm: regular Heart Sounds: Present: S1 & S2 - Extremities Extremities: no ischemia, No edema Peripheral Pulses: within normal limits - Abdominal General gastrointestinal: soft, non-tender - Integumentary Integumentary: Present: clear, warm, dry - Psychiatric Psychiatric: appropriate mood/affect, intact judgment & insight - Neurologic Neurologic: CNII-XII intact, moves all extremities Results - Labs CBC & Chem 7: 10/08/17 15:53 10/08/17 15:53 Labs: Laboratory Last Values WBC 5.2 K/mm3 (4.5-11.0) 10/08/17 15:53 RBC 3.73 M/mm3 (3.65-5.03) 10/08/17 15:53 Hgb 10.1 gm/dl (10.1-14.3) 10/08/17 15:53 Hct 31.1 % (30.3-42.9) 10/08/17 15:53 MCV 83 fl (79-97) 10/08/17 15:53 MCH 27 pg (28-32) L 10/08/17 15:53 MCHC 33 % (30-34) 10/08/17 15:53 RDW 16.2 % (13.2-15.2) H 10/08/17 15:53 Plt Count 183 K/mm3 (140-440) 10/08/17 15:53 Lymph % (Auto) 24.7 % (13.4-35.0) 10/08/17 15:53 [place] % (Auto) 9.2 % (0.0-7.3) H 10/08/17 15:53 Eos % (Auto) 1.1 % (0.0-4.3) 10/08/17 15:53 Baso % (Auto) 0.3 % (0.0-1.8) 10/08/17 15:53 Lymph # 1.3 K/mm3 (1.2-5.4) 10/08/17 15:53 [place] # 0.5 K/mm3 (0.0-0.8) 10/08/17 15:53 Eos # 0.1 K/mm3 (0.0-0.4) 10/08/17 15:53 Baso # 0.0 K/mm3 (0.0-0.1) 10/08/17 15:53 Seg Neutrophils % 64.7 % (40.0-70.0) 10/08/17 15:53 Seg Neutrophils # 3.4 K/mm3 (1.8-7.7) 10/08/17 15:53 PT 12.0 Sec. (12.2-14.9) L 10/08/17 15:53 INR 0.85 (0.87-1.13) L 10/08/17 15:53 APTT 33.1 Sec. (24.2-36.6) 10/08/17 15:53 D-Dimer 391.38 ng/mlDDU (0-234) H 10/08/17 15:53 Sodium 142 mmol/L (137-145) 10/08/17 15:53 Potassium 3.8 mmol/L (3.6-5.0) 10/08/17 15:53 Chloride 100.4 mmol/L (98-107) 10/08/17 15:53 Carbon Dioxide 25 mmol/L (22-30) 10/08/17 15:53 Anion Gap 20 mmol/L 10/08/17 15:53 BUN 12 mg/dL (7-17) 10/08/17 15:53 Creatinine 0.8 mg/dL (0.7-1.2) 10/08/17 15:53 Estimated GFR > 60 ml/min 10/08/17 15:53 BUN/Creatinine Ratio 15 % 10/08/17 15:53 Glucose 81 mg/dL (65-100) 10/08/17 15:53 Calcium 8.2 mg/dL (8.4-10.2) L 10/08/17 15:53 Troponin T < 0.010 ng/mL (0.00-0.029) 10/08/17 17:29 HCG, Qual Negative (Negative) 10/08/17 19:38
[2017-10-09] MEDS ORDERED: PERCOCET 5/325 PO PRN (12:26)
[2017-10-09] MEDS: MORPHINE IV PRN ×2 (13:36→23:14)
[2017-10-09] MEDS: TYLENOL PO PRN (16:38)
[2017-10-09] MEDS ORDERED: HALDOL ONE (22:01)
[2017-10-10] MEDS: PROVENTIL IH SCH ×4 (02:41→20:37)
[2017-10-10] MEDS: MORPHINE IV PRN ×2 (07:44→19:26)
[2017-10-10] MEDS: LOVENOX SUB-Q SCH ×2 (10:41→21:40)
[2017-10-10] MEDS: FEOSOL PO SCH ×2 (10:41→21:40)
[2017-10-10] MEDS: NORMODYNE PO SCH ×2 (10:45→21:45)
--- NOTE | 2017-10-10 16:21 | Progress Note ---
Assessment and Plan Assessment and plan: 27 YO Female with SLE, DVT/PE, Chronic ITP, Noncompliance with therapeutic anticoagulation for the past 2 months due to loss of insurance presents to ED for evaluation. co pleuritic chest pain, found to have Left PE. currently , delivered a baby in 07/30 after emergency for pre- eclampsia Acute respiratory failure with hypoxia - Supplemental oxygen, nebulizer therapy, NIPPV as clinically indicated, Pulmonary embolism - Supplemental oxygen, nebulizer thearpy, therapeutic anticoagulation, pulmonary toilet, incentive spirometry. NO RV strain pattern on EKG, on full dose lovenox. Explained to patient that given hx of multiple PE and SLE that she will need lifelong anticoagulation. Patient can't be on liquids because of breast-feeding. Hematology/Oncology consulted. SLE (systemic lupus erythematosus) continue current therapy, outpatient rheumatology f/u Chronic ITP (idiopathic thrombocytopenic purpura) - Platelet count stable and within normal limits. repeat cbc to monitor platelet count, and serial physical exam to monitor or bleeding. DVT prophylaxis continue therapeutic anticoagulation. History Interval history: Patient was seen and evaluated this morning, patient was complaining shortness of breath when she is walking around. Hospitalist Physical - Physical exam Narrative exam: Not in cardiopulmonary distress. The patient appeared well nourished and normally developed. Vital signs as documented. Head exam is unremarkable. No scleral icterus . Neck is without jugular venous distension, thyromegaly, or carotid bruits. Lungs are clear to auscultation. Cardiac exam reveals regular rate and Rhythm. First and second heart sounds normal. No murmurs, rubs or gallops. Abdominal exam reveals normal bowel sounds, no masses, no organomegaly and no aortic enlargement. Extremities are nonedematous and both femoral and pedal pulses are normal. FIELD CARE MANAGER: Alert and oriented 3. No focal weakness. - Constitutional Vitals: Temp Pulse Resp BP Pulse Ox 97.9 F 94 H 16 123/84 96 10/10/17 10:39 10/10/17 14:02 10/10/17 14:02 10/10/17 10:45 10/10/17 11:12 General appearance: Present: no acute distress, well-nourished Results - Labs CBC & Chem 7: 10/08/17 15:53 10/08/17 15:53 Labs: Laboratory Last Values WBC 5.2 K/mm3 (4.5-11.0) 10/08/17 15:53 RBC 3.73 M/mm3 (3.65-5.03) 10/08/17 15:53 Hgb 10.1 gm/dl (10.1-14.3) 10/08/17 15:53 Hct 31.1 % (30.3-42.9) 10/08/17 15:53 MCV 83 fl (79-97) 10/08/17 15:53 MCH 27 pg (28-32) L 10/08/17 15:53 MCHC 33 % (30-34) 10/08/17 15:53 RDW 16.2 % (13.2-15.2) H 10/08/17 15:53 Plt Count 183 K/mm3 (140-440) 10/08/17 15:53 Lymph % (Auto) 24.7 % (13.4-35.0) 10/08/17 15:53 [place] % (Auto) 9.2 % (0.0-7.3) H 10/08/17 15:53 Eos % (Auto) 1.1 % (0.0-4.3) 10/08/17 15:53 Baso % (Auto) 0.3 % (0.0-1.8) 10/08/17 15:53 Lymph # 1.3 K/mm3 (1.2-5.4) 10/08/17 15:53 [place] # 0.5 K/mm3 (0.0-0.8) 10/08/17 15:53 Eos # 0.1 K/mm3 (0.0-0.4) 10/08/17 15:53 Baso # 0.0 K/mm3 (0.0-0.1) 10/08/17 15:53 Seg Neutrophils % 64.7 % (40.0-70.0) 10/08/17 15:53 Seg Neutrophils # 3.4 K/mm3 (1.8-7.7) 10/08/17 15:53 PT 12.0 Sec. (12.2-14.9) L 10/08/17 15:53 INR 0.85 (0.87-1.13) L 10/08/17 15:53 APTT 33.1 Sec. (24.2-36.6) 10/08/17 15:53 D-Dimer 391.38 ng/mlDDU (0-234) H 10/08/17 15:53 Sodium 142 mmol/L (137-145) 10/08/17 15:53 Potassium 3.8 mmol/L (3.6-5.0) 10/08/17 15:53 Chloride 100.4 mmol/L (98-107) 10/08/17 15:53 Carbon Dioxide 25 mmol/L (22-30) 10/08/17 15:53 Anion Gap 20 mmol/L 10/08/17 15:53 BUN 12 mg/dL (7-17) 10/08/17 15:53 Creatinine 0.8 mg/dL (0.7-1.2) 10/08/17 15:53 Estimated GFR > 60 ml/min 10/08/17 15:53 BUN/Creatinine Ratio 15 % 10/08/17 15:53 Glucose 81 mg/dL (65-100) 10/08/17 15:53 Calcium 8.2 mg/dL (8.4-10.2) L 10/08/17 15:53 Troponin T < 0.010 ng/mL (0.00-0.029) 10/08/17 17:29 HCG, Qual Negative (Negative) 10/08/17 19:38
--- NOTE | 2017-10-10 21:35 | Consultation ---
History of Present Illness - Reason for Consult Consult date: 10/10/17 hypercoagulable/PE/DVT. Requesting physician: GABO NIXON - History of Present Illness Thank you for this consult. Patient seen, record reviewed, including notes, and case d/e her. Patient with previous hx of PE/DVT/SLE, presents with PE, due to non compliance with anticoagulation.She is currently breast feeding. She had been on long time LMWH, rec that she continues with that once d/c home. OK with heparin in the hospital. Absolutely no Coumadin ,as it is contra indicated.She is not a candidate for IVC filter either for several obvious reasons.Will follow you. She can also follow me out patient.see further labs. Past History Past Medical History: DVT, pulmonary embolism, other (ITP,SLE) Past Surgical History: Social history: single. denies: smoking, alcohol abuse, prescription drug abuse Family history: hypertension Medications and Allergies Allergies Allergy/AdvReac Type Severity Reaction Status Date / Time NSAIDS (Non-Steroidal Allergy Unknown Verified 10/08/17 15:43 Anti-Inflamma Home Medications Medication Instructions Recorded Confirmed Last Taken Type Ferrous Sulfate [Feosol 325 MG tab] 325 mg PO BID #60 tablet 07/27/17 10/08/17 Unknown Rx Labetalol HCl 300 mg PO BID #60 tablet 07/27/17 10/08/17 Unknown Rx Hydroxychloroquine [Plaquenil] 200 mg PO BID 10/08/17 10/08/17 Unknown History Active Meds: Active Medications Acetaminophen (Tylenol) 650 mg PO Q4H PRN PRN Reason: Pain MILD(1-3)/Fever >100.5/MACKENZIE Last Admin: 10/09/17 16:38 Dose: 650 mg Albuterol (Proventil) 2.5 mg IH Q6HRT [facility] Last Admin: 10/10/17 20:37 Dose: 2.5 mg Bisacodyl (Dulcolax) 10 mg TN QDAY PRN PRN Reason: Constipation unrelieved by MOM Enoxaparin Sodium (Lovenox) 70 mg SUB-Q Q12HR [facility] Last Admin: 10/10/17 10:41 Dose: 70 mg Ferrous Sulfate (Feosol) 325 mg PO BID [facility] Last Admin: 10/10/17 10:41 Dose: 325 mg Hydralazine HCl (Apresoline) 5 mg IV Q6H PRN PRN Reason: hypertension Labetalol HCl (Normodyne) 300 mg PO BID [facility] Last Admin: 10/10/17 10:45 Dose: Not Given Magnesium Hydroxide (Milk Of Magnesia) 30 ml PO Q4H PRN PRN Reason: Constipation Morphine Sulfate (Morphine) 4 mg IV Q4H PRN PRN Reason: Pain , Severe (7-10) Last Admin: 10/10/17 19:26 Dose: 4 mg Ondansetron HCl (Zofran) 4 mg IV Q8H PRN PRN Reason: N/V unrelieved by Reglan Oxycodone/Acetaminophen (Percocet 5/325) 2 tab PO Q4H PRN PRN Reason: Pain, Moderate (4-6) Review of Systems Constitutional: chronic pain Breasts: deferred Exam - Constitutional Vitals: Temp Pulse Resp BP Pulse Ox 97.9 F 94 H 18 123/84 97 10/10/17 10:39 10/10/17 20:47 10/10/17 20:47 10/10/17 10:45 10/10/17 20:41 General appearance: Present: no acute distress, well-nourished - EENT Eyes: Present: PERRL ENT: hearing intact, clear oral mucosa - Neck Neck: Present: supple, normal ROM - Respiratory Respiratory: bilateral: diminished - Cardiovascular Heart Sounds: Present: S1 & S2. Absent: rub, click - Extremities Extremities: pulses symmetrical, No edema Peripheral Pulses: within normal limits - Abdominal General gastrointestinal: Present: soft, non-tender, non-distended, normal bowel sounds Female genitourinary: Present: deferred - Rectal Rectal Exam: deferred - Integumentary Integumentary: Present: clear, warm, dry - Musculoskeletal Musculoskeletal: gait normal, strength equal bilaterally - Psychiatric Psychiatric: appropriate mood/affect, intact judgment & insight - Neurologic Neurologic: CNII-XII intact, moves all extremities Results - Labs CBC & Chem 7: 10/08/17 15:53 10/08/17 15:53 Assessment and Plan - Patient Problems (1) Pulmonary embolism Current Visit: Yes Status: Acute Qualifiers: Pulmonary embolism type: other Chronicity: acute Acute cor pulmonale presence: without acute cor pulmonale Qualified Code(s): I26.99 - Other pulmonary embolism without acute cor pulmonale Plan to address problem: See notes. (2) SLE (systemic lupus erythematosus) Current Visit: No Status: Acute Qualifiers: Systemic lupus erythematosus type: unspecified Systemic lupus erythematosus organ involvement: glomerular disease Qualified Code(s): M32.14 - Glomerular disease in systemic lupus erythematosus Plan to address problem: see notes.
[2017-10-11] MEDS: PROVENTIL IH SCH ×2 (01:23→14:25)
[2017-10-11] MEDS: MORPHINE IV PRN ×2 (01:54→08:14)
[2017-10-11] MEDS: LOVENOX SUB-Q SCH (10:00)
--- NOTE | 2017-10-11 11:17 | Discharge Summary ---
Providers - Providers Date of Admission: 10/08/17 20:16 Attending physician: CASSANDRA SALGADO MD 10/10/17 11:43 Consult to Physician [CONS] Routine Consulting Provider: EVIE MUELLER Reason For Exam: PE, breat feeding Place consult to:: Hematology Notified:: office Phone number called:: Was contact made?: No If yes, spoke with:: felix Time called:: 12:44 Comment:: lft msg on answering machine of felix Primary care physician: CASTING OPERATOR HELPER Hospitalization Reason for admission: Pulmonary embolism Condition: Stable Pertinent studies: CTA right lower lobe PE Echo no right ventricular strain Hospital course: 27 YO Female with SLE, DVT/PE, Chronic ITP, Noncompliance with therapeutic anticoagulation for the past 2 months due to loss of insurance presents to ED for evaluation. co pleuritic chest pain, found to have Left PE. currently , delivered a baby in 07/30 after emergency for pre- eclampsia Acute respiratory failure with hypoxia: resolved with supplemental oxygen, nebulizer therapy, NIPPV as clinically indicated. Patient saturating well on home O2. Patient was treated with heparin while inpatient and hematology oncology consulted, recommended continue with Lovenox as an outpatient. Patient is breast-feeding currently. Patient has insurance and will cover it. Patient said she has hematology oncology follow-up as an outpatient. Patient was hemodynamically stable at the time of discharge. Patient's questions and concerns were addressed at the bedside. Disposition: -01 TO HOME OR SELFCARE Time spent for discharge: 32 minutes - Discharge Diagnoses (1) Acute respiratory failure Status: Acute Qualifiers: Respiratory failure complication: hypoxia Qualified Code(s): J96.01 - Acute respiratory failure with hypoxia (2) Pulmonary embolism Status: Acute Qualifiers: Pulmonary embolism type: other Chronicity: acute Acute cor pulmonale presence: without acute cor pulmonale Qualified Code(s): I26.99 - Other pulmonary embolism without acute cor pulmonale (3) delivery delivered Status: Acute Core Measure Documentation - Palliative Care Palliative Care/ Comfort Measures: Not Applicable - Core Measures Any of the following diagnoses?: DVT/PE - VTE Discharge Requirements Deep Vein Thrombosis/Pulmonary Embolism Present on Admission: Yes Has pt received <5 days of overlap therapy or INR<2.0: No Anticoagulant overlap therapy prescribed at discharge: No Contraindication No Overlap Therapy order at DC: Not Indicated (Patient will be discharged with Lovenox) Exam - Physical Exam Narrative exam: Not in cardiopulmonary distress. The patient appeared well nourished and normally developed. Vital signs as documented. Head exam is unremarkable. No scleral icterus . Neck is without jugular venous distension, thyromegaly, or carotid bruits. Lungs are clear to auscultation. Cardiac exam reveals regular rate and Rhythm. First and second heart sounds normal. No murmurs, rubs or gallops. Abdominal exam reveals normal bowel sounds, no masses, no organomegaly and no aortic enlargement. Extremities are nonedematous and both femoral and pedal pulses are normal. LUGGAGE REPAIRER: Alert and oriented 3. No focal weakness. - Constitutional Vitals: Temp Pulse Resp BP Pulse Ox 100.0 F H 98 H 20 139/91 100 10/11/17 07:43 10/11/17 07:43 10/11/17 07:43 10/11/17 07:43 10/11/17 07:43 Plan Diet: regular Follow up with: PRIMARY CAREMD [Primary Care Provider] - 7 Days Prescriptions: Enoxaparin [Lovenox] 70 mg SUB-Q Q12HR #60 syringe
[2017-10-11] MEDS: NORMODYNE PO SCH (11:33)
[2017-10-11] MEDS: TYLENOL PO PRN (11:33)
[2017-10-11] MEDS: FEOSOL PO SCH (11:34)
[2017-10-11 12:30] LABS: Protein S, Free 52 % normal (50-147); Protein S, Total 99 % (70-140)
[2017-10-11 15:32] VITALS: BP 132/78
== END 2017-10-11 14:00 | disposition home or self-care (01) | DRG 175 ==
LOC: ED 15:41 → 3A 20:16
PROVIDERS: ADMIT Internal Medicine; ATTEND Internal Medicine
DX: I26.99 Other pulmonary embolism without acute cor pulmonale (principal); J96.01 Acute respiratory failure with hypoxia; M32.9 Systemic lupus erythematosus, unspecified; D69.3 Immune thrombocytopenic purpura; Z86.718 Personal history of other venous thrombosis and embolism; Z88.8 Allergy status to other drugs, medicaments and biological substances; Z86.711 Personal history of pulmonary embolism; Z82.49 Family history of ischemic heart disease and other diseases of the circulatory system; Z91.14 Patient's other noncompliance with medication regimen
CPT/HCPCS: 36415; 71045; 71275; 80048; 83516; 84484; 84703; 85025; 85220; 85301; 85305; 85379; 85610; 85730; 93005; 93010; 93306; 94640; 94760; 96374; J0360; J1630; J1650; J1885; J2270; Q9967